=== PATIENT | female | born 1945 | race Caucasian/White ===

== ENCOUNTER 2023-12-05 07:22 | Emergency (ER) | payer MEDICARE, SELFPAY ==
--- NOTE | ~2023-12-05 | CT_ITS ---
EXAMINATION: CT abdomen pelvis w con DATE: 12/05/2023 09:04 INDICATION: Constipation TECHNIQUE: Computed tomography (CT) of the abdomen and pelvis was performed with 100 cc Omnipaque 350 intravenous contrast. The dose-length product was 1557.13 mGy-cm. Automated exposure control and ite rative reconstruction technique were employed. COMPARISON: None. FINDINGS: There is dependent atelectasis. Heart size normal. No significant pleural or pericardial ef fusion. Status post cholecystectomy with expected prominence of the bile ducts. Possible distal right ureteral stone, although evaluation is limited due to metallic artifact from right hip arthroplasty. Mild right hydronephrosis. There is bladder wall thickening. Small ventral hernia containing fat. No nobstructive bowel gas pattern. The liver, spleen, pancreas, adrenal glands are unremarkable. Kidneys are atrophic with small bilater al low density lesions, most likely benign cysts. There is atherosclerosis of the aorta without aneur ysm. Small hiatal hernia with gastric bypass surgery. Generalized osteopenia. Severe lower thoracic a nd lumbar spondylosis. There is scoliosis. IMPRESSION: 1. Mild right hydronephrosis. Cannot exclude small distal right ureteral stone, although evaluation i s limited due to streak artifact from right hip arthroplasty. 2: Diffuse bladder wall thickening which is slightly irregular, suspicious for cystitis. Reviewed, dictated and finalized at location B. IMPRESSION: 1. Mild right hydronephrosis. Cannot exclude small distal right ureteral stone, although evaluation is limited due to streak artifact from right hip arthropla sty. 2: Diffuse bladder wall thickening which is slightly irregular, suspicious for cystitis.
[2023-12-05 07:24] VITALS: BP 158/117; PULSE 112; RESP 20; TEMP 36.4; O2SAT 100
--- NOTE | 2023-12-05 07:34 | ED.GENADULT ---
HPI - General Adult General Chief complaint: Abdominal Pain Stated complaint: abd pain History of Present Illness HPI narrative: 78-year-old female presenting to the emergency department for evaluation for constipation. Patient states she started having some rectal pain last night. Patient states that she feels she has to have a bowel movement but is unable to. Related Data Allergies Allergy/AdvReac Type Severity Reaction Status Date / Time Penicillins Allergy Intermediate Verified 01/03/11 17:55 Review of Systems Review of Systems: All systems reviewed & are unremarkable except as noted in HPI and below Exam Narrative: APPEARANCE: Well appearing, no pain, no distress, well-nourished. HEAD: normocephalic, atraumatic. EYES: PERRLA/EOMI, conjunctivae clear. NOSE: Normal no drainage EARS:TMS clear with good light reflex. THROAT: Pharynx clear, no exudate. NECK: Supple. No adenopathy, no masses. RESPIRATORY: Airway patent, respirations nonlabored. Clear to auscultation bilaterally, no rales, rhonchi, wheezing. CARDIOVASCULAR: Regular rate and rhythm without murmurs rubs or gallops. ABDOMINAL: Soft, nontender, nondistended, normal bowel sounds MUSCULOSKELETAL: Moves all extremities. Strength/ROM intact, No edema, No calf tenderness. NEURO: Alert. Cranial nerves II through XII intact. Good gait. Good coordination SKIN: Warm, dry. Normal Color PSYCHIATRIC: Normal affect/mood. Rectal pressure: Large stool ball within the rectal vault Course Vital Signs Vital signs: Vital Signs Temperature 97.6 F 12/05/23 07:24 Pulse Rate 112 H 12/05/23 07:24 Respiratory Rate 20 12/05/23 07:24 Blood Pressure 158/117 H 12/05/23 07:24 Pulse Oximetry 100 12/05/23 07:24 Oxygen Delivery Room Air 12/05/23 07:24 Temperature 97.5 F L 12/05/23 13:28 Pulse Rate 98 12/05/23 13:28 Respiratory Rate 19 12/05/23 13:28 Blood Pressure 126/66 12/05/23 13:28 Pulse Oximetry 99 12/05/23 13:28 Oxygen Delivery Room Air 12/05/23 07:24 Procedures Rectal Disimpaction Rectal Disimpaction #1: Rectal Disimpaction Time: 07:35 Time out performed rectal disimpaction: Yes Indication: fecal impaction Procedural Sedation: No Sedation/Analgesia: none Technique: manual disimpaction with gloved finger Result: significant stool output Patient Tolerated Procedure: well and no complications Complications: none Rectal Disimpaction #2: Rectal Disimpaction Time: 08:20 Time out performed rectal disimpaction: No Indication: fecal impaction Procedural Sedation: No Sedation/Analgesia: none Technique: manual disimpaction with gloved finger Result: significant stool output Patient Tolerated Procedure: well and no complications Complications: none Medical Decision Making MDM Narrative Medical decision making narrative: 70-year-old female presents to the emergency department for evaluation for increased rectal pressure. Patient did have a large stool ball and did require digital disimpaction x2 along with subsides enema. Patient ultimately did have a large bowel movement and significant response to the treatment. Patient is afebrile but does have a leukocytosis of 15.7 hemoglobin of 11.7. Patient's sodium is 126 with normal kidney function. UA was concerning for infection. Patient did have some urinary retention secondary to the constipation but now that the constipation has been resolved patient was able to urinate. Patient was offered admission but patient prefers to be discharged home. Patient will be started on Rocephin in the emergency department discharged home with Keflex. Patient was also advised to increase her daily MiraLax to help prevent worsening constipation. Patient was also educated on reasons to return to the emergency department. Differential Diagnosis Differential Diagnosis: Constipation, urinary obstructio
[2023-12-05 07:54] VITALS: BP 127/72; PULSE 105; RESP 20; O2SAT 100
--- NOTE | 2023-12-05 07:59 | PC.NURSE ---
Pt taken to CT at this time
[2023-12-05 08:01] LABS: Basophils Absolute Auto 0.1 K/mm3 (0.0-0.1); Basophils Percent Auto 0.6 % (0.2-1.2); Eosinophils Absolute Auto 0.1 K/mm3 (0-0.3); Eosinophils Percent Auto 0.8 % (0-4.4); Hematocrit 35.5 % (37.0-47.0); Hemoglobin 11.7 g/dL (12.0-15.0); Immature Granulocyte Absolute 0.08 K/mm3 (0.00-0.031); Immature Granulocyte Percent A 0.5 % (0-0.5); Lymphocytes Absolute Auto 2.29 K/mm3 (0.9-3.2); Lymphocytes Percent Auto 14.6 % (18.3-44.2); Mean Corpuscular Hemoglobin 30.5 pg (26-34); Mean Corpuscular Volume 92.4 fl (80-100); Mean Platelet Volume 10.6 fl (7.4-10.4); Monocytes Percent Auto 6.1 % (2.6-8.5); Neutrophils Absolute Auto 12.2 K/mm3 (1.3-6.7); Neutrophils Percent Auto 77.4 % (45.5-73.1); Platelet Count Result 223 k/mm3 (150-375); Red Blood Count 3.84 M/mm3 (4.2-5.4); Red Cell Distribution Width 12.7 % (11.5-14.5); White Blood Count 15.7 K/mm3 (4.5-10.0)
[2023-12-05 08:08] LABS: Alanine Aminotransferase 13 U/L (6-35); Albumin Level 3.8 g/dL (3.5-5.1); Alkaline Phosphatase 84 U/L (38-126); Anion Gap 11 mmol/L (4-12); Aspartate Amino Transferase 21 U/L (14-36); Bilirubin,Total 0.9 mg/dL (0.2-1.3); Blood Urea Nitrogen 18 mg/dL (7-17); Calcium 8.6 mg/dL (8.4-10.2); Carbon Dioxide 24 mmol/L (22-30); Chloride 91 mmol/L (98-107); Estimated CRCL calculation 56 ml/min; Estimated Glomerular Filt Rate > 60; Glucose 213 mg/dL (65-110); Potassium 3.5 mmol/L (3.4-5.0); Sodium 126 mmol/L (137-145)
[2023-12-05 08:20] LABS: Prothrombin Time 13.7 Seconds (11.1-14.7)
[2023-12-05 08:21] LABS: Partial Thromboplastin Time 28.6 Seconds (22.3-36.8)
[2023-12-05 10:08] VITALS: BP 130/83; PULSE 96; RESP 18; O2SAT 96
[2023-12-05 10:24] LABS: Bacteria Urine 4+ /hpf; Non Pathogenic Casts 0-2; RBC Urine >100 /hpf (0-2); Squamous Epithelial Cell Urine Occasional /hpf (Few); WBC Urine >100 /hpf (0-3)
[2023-12-05 10:26] LABS: Add Urine Microscopic? YES; Appearance Urine Turbid (Clear); Bilirubin Urine Negative (Negative); Blood Urine 3+ (Negative); Glucose Urine UA Trace mg/dL (Negative); Ketones Urine Negative (Negative); Leukocyte Esterase Ur 3+ LEU/UL (Negative); Nitrate Urine Negative (Negative); Protein Urine 2+ mg/dL (Negative); Specific Grav Ur 1.017 (1.001-1.035); Urobilinogen Urine 0.2 mg/dL (<2.0); pH Urine 5.5 (5.0-9.0)
[2023-12-05 10:29] LABS: Color Urine Dark Yellow (Yellow)
[2023-12-05 11:50] VITALS: BP 147/69; PULSE 100; RESP 20; O2SAT 98
--- NOTE | 2023-12-05 11:53 | PC.NURSE ---
Spoke with REENA Boyce at [facility] for report upon d/c.
[2023-12-05 13:28] VITALS: BP 126/66; PULSE 98; RESP 19; TEMP 36.4; O2SAT 99
== END 2023-12-05 13:28 ==
PROVIDERS: Emergency Provider Emergency Medicine
DX: K59.00 Constipation, unspecified (principal); N39.0 Urinary tract infection, site not specified
CPT/HCPCS: 36415; 74177; 80053; 81001; 85025; 85610; 85730; 87086; 96365; 99284; J0696; Q9967

== ENCOUNTER 2024-01-03 05:16 | Emergency (ER) | payer MEDICARE, SELFPAY ==
--- NOTE | ~2024-01-03 | CT_ITS ---
CT of the Abdomen and Pelvis: Indication: Abdominal pain Technique: 2.5 mm axial scans were obtained through the abdomen and pelvis following intravenous adm inistration of 100 cc of Omnipaque 350. Dose reduction technique was used on this scan by utilizing a utomated exposure control and iterative reconstruction technique. The dose-length product (DLP) was 1 476.75 mGy-cm. COMPARISON: 12/05/2023 Findings: Scans through the lung bases are unremarkable. Mild intrahepatic and extrahepatic biliary dilatation may be related to prior cholecystectomy. The li bipin, spleen, pancreas, adrenals and kidneys are otherwise within normal limits. No evidence of aorti c aneurysm. No lymphadenopathy. Suggestion of wall thickening very distal rectum, stable from prior exam. No murali bowel obstruction clearly evident.. Evidence of prior gastric sleeve surgery. There is no evidence to suggest acute minna endicitis. Images through the pelvis are mildly degraded by streak artifact from right hip arthroplasty. Suspect ed urinary bladder wall thickening. No pelvic mass. No ascites. Stable extensive degenerative spondyl osis of the spine. Impression: Possible wall thickening very distal rectum/anal canal. Neoplastic lesion is a potential consideratio n. Correlate with physical exam. Suspected cystitis. Correlate with urinalysis. Stable intrahepatic and extrahepatic biliary dilatation, possibly related to prior cholecystectomy. Reviewed, dictated and finalized at location . 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 Neoplastic lesion is a potential consideration. Correlate with physical exam. Suspected cystitis. Correlate with urinalysis. Stable intrahepatic and extrahepatic biliary dilatation, possibly related to pr ior cholecystectomy.
[2024-01-03 05:16] VITALS: BP 161/77; PULSE 117; RESP 16; TEMP 36.7; O2SAT 96
[2024-01-03 05:24] VITALS: PULSE 113; RESP 16; TEMP 36.7; O2SAT 96
--- NOTE | 2024-01-03 05:24 | ECG_ITS ---
Test Date: 2024-01-03 05:28:14 Measurements Intervals [place] Rate: 112 P: 0 LA: 0 QRS: -73 QRSD: 141 T: -4 QT: 354 QTc: 484 Interpretive Statements SINUS TACHYCARDIA LEFT AXIS DEVIATION RIGHT BUNDLE BRANCH BLOCK LATERAL INFARCT, AGE INDETERMINATE CONSIDER NFERIOR INFARCT, AGE INDETERMINATE BASELINE ARTIFACT- I, III, AVR, AVL, AVF, V1, V3-V4 ABNORMAL ECG No previous ECG available for comparison Electronically Signed On 01-03-2024 07:56:13 DIRECTOR POST by Chema Bowles D.O.
--- NOTE | 2024-01-03 06:01 | ED.GENADULT ---
HPI - General Adult General Chief complaint: Abdominal Pain <Kye Cartwright MD - Last Filed: 01/03/24 06:04> Stated complaint: abd pain <Kye Cartwright MD - Last Filed: 01/03/24 06:04> Time Seen by Provider: 01/03/24 05:33 <Kye Cartwright MD - Last Filed: 01/03/24 06:04> Source: patient, RN notes reviewed and old records reviewed <Ciara Hansen MD - Last Filed: 01/03/24 11:51> History of Present Illness HPI narrative: Patient is a 78-year-old female who presents emergency department with chief complaint of abdominal pain back pain and rectal pain. The patient reports for the last several days she has not had a bowel movement reports that she is having severe pain in her rectum and feels as though she cannot urinate or move her bowels. The patient reports she has had to be manually disimpacted before in the past <Kye Cartwright MD - Last Filed: 01/03/24 06:04> Related Data Allergies/adverse reactions: Allergies Allergy/AdvReac Type Severity Reaction Status Date / Time Penicillins Allergy Intermediate Unknown Verified 01/03/24 05:26 vancomycin Allergy Unknown Verified 01/03/24 05:26 <Kye Cartwright MD - Last Filed: 01/03/24 06:04> Review of Systems Review of Systems: A 10 system review of systems was completed on the patient and is negative except for what is stated in the HPI. Nursing and ancillary documentation was reviewed. <Kye Cartwright MD - Last Filed: 01/03/24 06:04> [facility] Past Medical History Medical History: Medical History (Updated 01/03/24 @ 11:48 by Ciara Hansen MD) Diabetes Hypertension <Kye Cartwright MD - Last Filed: 01/03/24 06:04> Surgical History Surgical History: Surgical History (Updated 01/03/24 @ 11:50 by Ciara Hansen MD) History of total right hip arthroplasty Hx of cholecystectomy <Kye Cartwright MD - Last Filed: 01/03/24 06:04> Social History Social History: Social History (Updated 01/03/24 @ 11:50 by Ciara Hansen MD) Substance use: never <Kye Cartwright MD - Last Filed: 01/03/24 06:04> Exam Narrative: GENERAL: Well-appearing, well-nourished, and in no acute distress. HEAD: Normocephalic, atraumatic. EYES: PERRLA and EOMI. ENT: Nares clear, no rhinorrhea or epistaxis. Mucous membranes moist. NECK: Supple. CHEST: Clear to auscultation. No respiratory distress. HEART: Regular rate and rhythm. No murmur heard. Normal peripheral pulses. ABDOMEN: Soft, nontender, nondistended, normal active bowel sounds. EXTREMITIES: Normal range of motion. No edema. : Large amount of fecal material in the rectum guaiac-negative SKIN: Warm, dry, no rash. NEURO: No focal deficits. Alert and oriented x3. PSYCH: Normal mood and affect. <Kye Cartwright MD - Last Filed: 01/03/24 06:04> Course Reevaluation(s) Reevaluation #1: Patient states she feels better. She was disimpacted by night EDP prior to my shift. Heart rate is 85 with 98% on room air. CT shows imflammation to rectum from constipation. She will be discharged home with antibiotics for UTI. I have discussed plan with patient. <Ciara Hansen MD - Last Filed: 01/03/24 11:51> Date: 01/03/24 <Ciara Hansen MD - Last Filed: 01/03/24 11:51> Time: 08:44 <Ciara Hansen MD - Last Filed: 01/03/24 11:51> Vital Signs Vital signs: Vital Signs Temperature 98.1 F 01/03/24 05:16 Pulse Rate 117 H 01/03/24 05:16 Respiratory Rate 16 01/03/24 05:16 Blood Pressure 161/77 H 01/03/24 05:16 Pulse Oximetry 96 01/03/24 05:16 Oxygen Delivery Room Air 01/03/24 05:16 Temperature 98.1 F 01/03/24 05:24 Pulse Rate 113 H 01/03/24 05:24 Respiratory Rate 16 01/03/24 05:24 Blood Pressure 161/77 H 01/03/24 05:16 Pulse Oximetry 96 01/03/24 05:24 Oxygen Delivery Room Air 01/03/24 05:16 <Kye Cartwright MD - Last Filed: 01/03/24 06:04> Vital Signs Temperature 98.1 F 01/03/24 05:16 Pulse Rate 117 H 01/03/24 05:16 Respiratory Rate 16 01/03/24 05:16 Blood Pressure 161/77 H 01/03/24 05:16 Pulse Oximetry 96 01/03/24 05:16 Oxygen Delivery Room Air 01/03/24 05:16 Temperature 98.1 F 01/03/24 05:24 Pulse Rate 113 H 01/03/24 05:24 Respiratory Rate 16 01/03/24 05:24 Blood Pressure 161/77 H 01/03/24 05:16 Pulse Oximetry 96 01/03/24 05:24 Oxygen Delivery Room Air 01/03/24 05:16 <Ciara Hansen MD - Last Filed: 01/03/24 11:51> Procedures Rectal Disimpaction Rectal Disimpaction #1: Rectal Disimpaction Date: 01/03/24 <Kye Cartwright MD - Last Filed: 01/03/24 06:04> Rectal Disimpaction Time: 06:04 <Kye Cartwright MD - Last Filed: 01/03/24 06:04> Time out performed rectal disimpaction: Yes <Kye Cartwright MD - Last Filed: 01/03/24 06:04> Indication: fecal impaction <Kye Cartwright MD - Last Filed: 01/03/24 06:04> Procedural Sedation: No <Kye Cartwright MD - Last Filed: 01/03/24 06:04> Sedation/Analgesia: none <Kye Cartwright MD - Last Filed: 01/03/24 06:04> Technique: manual disimpaction with gloved finger <Kye Cartwright MD - Last Filed: 01/03/24 06:04> Result: significant stool output <Kye Cartwright MD - Last Filed: 01/03/24 06:04> Patient Tolerated Procedure: well <Kye Cartwright MD - Last Filed: 01/03/24 06:04> Complications: none <Kye Cartwright MD - Last Filed: 01/03/24 06:04> Medical Decision Making Vital Signs Vital Signs: Vital Signs Temperature 98.1 F 01/03/24 05:16 Pulse Rate 117 H 01/03/24 05:16 Respiratory Rate 16 01/03/24 05:16 Blood Pressure 161/77 H 01/03/24 05:16 Pulse Oximetry 96 01/03/24 05:16 Oxygen Delivery Room Air 01/03/24 05:16 Temperature 98.1 F 01/03/24 05:24 Pulse Rate 113 H 01/03/24 05:24 Respiratory Rate 16 01/03/24 05:24 Blood Pressure 161/77 H 01/03/24 05:16 Pulse Oximetry 96 01/03/24 05:24 Oxygen Delivery Room Air 01/03/24 05:16 <Kye Cartwright MD - Last Filed: 01/03/24 06:04> Vital Signs Temperature 98.1 F 01/03/24 05:16 Pulse Rate 117 H 01/03/24 05:16 Respiratory Rate 16 01/03/24 05:16 Blood Pressure 161/77 H 01/03/24 05:16 Pulse Oximetry 96 01/03/24 05:16 Oxygen Delivery Room Air 01/03/24 05:16 Temperature 98.1 F 01/03/24 05:24 Pulse Rate 113 H 01/03/24 05:24 Respiratory Rate 16 01/03/24 05:24 Blood Pressure 161/77 H 01/03/24 05:16 Pulse Oximetry 96 01/03/24 05:24 Oxygen Delivery Room Air 01/03/24 05:16 <Ciara Hansen MD - Last Filed: 01/03/24 11:51> Lab Data Result diagrams: 01/03/24 06:25 01/03/24 06:25 <Kye Cartwright MD - Last Filed: 01/03/24 06:04> Labs: Lab Results 01/03/24 Range/Units 06:25 WBC 12.3 H (4.5-10.0) K/mm3 RBC 3.93 L (4.2-5.4) M/mm3 Hgb 12.2 (12.0-15.0) g/dL Hct 36.4 L (37.0-47.0) % MCV 92.6 (80-100) fl MCH 31.0 (26-34) pg MCHC 33.5 (32-36) g/dl RDW 12.1 (11.5-14.5) % Plt Count 181 (150-375) k/mm3 MPV 10.7 H (7.4-10.4) fl Immature Gran % (Auto) 0.4 (0-0.5) % Neut % (Auto) 87.0 H (45.5-73.1) % Lymph % (Auto) 5.8 L (18.3-44.2) % [place] % (Auto) 5.8 (2.6-8.5) % Eos % (Auto) 0.4 (0-4.4) % Baso % (Auto) 0.6 (0.2-1.2) % Lymph # (Auto) 0.71 L (0.9-3.2) K/mm3 [place] # (Auto) 0.7 H (0.1-0.6) K/mm3 Eos # (Auto) 0.1 (0-0.3) K/mm3 Baso # (Auto) 0.1 (0.0-0.1) K/mm3 Abs Immat Gran (auto) 0.05 H (0.00-0.031) K/mm3 Absolute Neuts (auto) 10.7 H (1.3-6.7) K/mm3 Absolute Nucleated RBC 0.000 (0.0-0.012) K/mm3 Nucleated RBC % 0.0 (0.0-0.2) % Sodium 127 L (137-145) mmol/L Potassium 4.3 (3.4-5.0) mmol/L Chloride 92 L (98-107) mmol/L Carbon Dioxide 27 (22-30) mmol/L Anion Gap 8 (4-12) mmol/L BUN 18 H (7-17) mg/dL Creatinine 0.80 (0.7-1.0) mg/dL Estim Creat Clear Calc 60 ml/min Estimated GFR > 60 (59 - ) Glucose 212 H (65-110) mg/dL Calcium 8.8 (8.4-10.2) mg/dL Total Bilirubin 0.7 (0.2-1.3) mg/dL AST 24 (14-36) U/L ALT 17 (6-35) U/L Alkaline Phosphatase 78 (38-126) U/L Total Protein 7.0 (6.3-8.2) g/dL Albumin 3.7 (3.5-5.1) g/dL Lipase 118 (23-300) U/L Urine Color Brown H (Yellow) Urine Appearance Cloudy H (Clear) Urine pH 6.0 (5.0-9.0) Ur Specific [place] 1.010 (1.001-1.035) Urine Protein 1+ H (Negative) mg/dL Urine Glucose (UA) Trace H (Negative) mg/dL Urine Ketones Negative (Negative) mg/dL Ur Blood (Man) 3+ H (Negative) Urine Nitrate Positive H (Negative) Urine Bilirubin Negative (Negative) Urine Urobilinogen 0.2 (<2.0) mg/dL Leukocyte Esterase Rfl 3+ H (Negative) JOANN/UL Urine RBC >100 H (0-2) /hpf Urine WBC >100 H (0-3) /hpf Ur Squamous Epith Cells None seen (Few) /hpf Urine Bacteria 4+ H /hpf Urine Casts 0-2 <Kye Cartwright MD - Last Filed: 01/03/24 06:04> Lab Results 01/03/24 Range/Units 06:25 WBC 12.3 H (4.5-10.0) K/mm3 RBC 3.93 L (4.2-5.4) M/mm3 Hgb 12.2 (12.0-15.0) g/dL Hct 36.4 L (37.0-47.0) % MCV 92.6 (80-100) fl MCH 31.0 (26-34) pg MCHC 33.5 (32-36) g/dl RDW 12.1 (11.5-14.5) % Plt Count 181 (150-375) k/mm3 MPV 10.7 H (7.4-10.4) fl Immature Gran % (Auto) 0.4 (0-0.5) % Neut % (Auto) 87.0 H (45.5-73.1) % Lymph % (Auto) 5.8 L (18.3-44.2) % [place] % (Auto) 5.8 (2.6-8.5) % Eos % (Auto) 0.4 (0-4.4) % Baso % (Auto) 0.6 (0.2-1.2) % Lymph # (Auto) 0.71 L (0.9-3.2) K/mm3 [place] # (Auto) 0.7 H (0.1-0.6) K/mm3 Eos # (Auto) 0.1 (0-0.3) K/mm3 Baso # (Auto) 0.1 (0.0-0.1) K/mm3 Abs Immat Gran (auto) 0.05 H (0.00-0.031) K/mm3 Absolute Neuts (auto) 10.7 H (1.3-6.7) K/mm3 Absolute Nucleated RBC 0.000 (0.0-0.012) K/mm3 Nucleated RBC % 0.0 (0.0-0.2) % Sodium 127 L (137-145) mmol/L Potassium 4.3 (3.4-5.0) mmol/L Chloride 92 L (98-107) mmol/L Carbon Dioxide 27 (22-30) mmol/L Anion Gap 8 (4-12) mmol/L BUN 18 H (7-17) mg/dL Creatinine 0.80 (0.7-1.0) mg/dL Estim Creat Clear Calc 60 ml/min Estimated GFR > 60 (59 - ) Glucose 212 H (65-110) mg/dL Calcium 8.8 (8.4-10.2) mg/dL Total Bilirubin 0.7 (0.2-1.3) mg/dL AST 24 (14-36) U/L ALT 17 (6-35) U/L Alkaline Phosphatase 78 (38-126) U/L Total Protein 7.0 (6.3-8.2) g/dL Albumin 3.7 (3.5-5.1) g/dL Lipase 118 (23-300) U/L Urine Color Brown H (Yellow) Urine Appearance Cloudy H (Clear) Urine pH 6.0 (5.0-9.0) Ur Specific [place] 1.010 (1.001-1.035) Urine Protein 1+ H (Negative) mg/dL Urine Glucose (UA) Trace H (Negative) mg/dL Urine Ketones Negative (Negative) mg/dL Ur Blood (Man) 3+ H (Negative) Urine Nitrate Positive H (Negative) Urine Bilirubin Negative (Negative) Urine Urobilinogen 0.2 (<2.0) mg/dL Leukocyte Esterase Rfl 3+ H (Negative) JOANN/UL Urine RBC >100 H (0-2) /hpf Urine WBC >100 H (0-3) /hpf Ur Squamous Epith Cells None seen (Few) /hpf Urine Bacteria 4+ H /hpf Urine Casts 0-2 <Ciara Hansen MD - Last Filed: 01/03/24 11:51> Discharge Plan Discharge Clinical Impression: Fecal impaction in rectum, Acute UTI, Chronic hyponatremia <Kye Cartwright MD - Last Filed: 01/03/24 06:04> Patient Disposition: Home, Self-Care <Kye Cartwright MD - Last Filed: 01/03/24 06:04> Condition: Stable <Kye Cartwright MD - Last Filed: 01/03/24 06:04> Instructions: Antibiotic Form, Constipation (ED), Urinary Tract Infection in Women (ED) <Kye Cartwright MD - Last Filed: 01/03/24 06:04> Additional Instructions: Take miralax daily. Follow up with your primary care provider. TAke antibiotics as prescribed <Kye Cartwright MD - Last Filed: 01/03/24 06:04> Prescriptions: New ciprofloxacin HCl [Cipro] 250 mg tablet 250 mg PO Q12H Qty: 20 0RF No Action cephalexin 500 mg capsule 500 mg PO Q6H Qty: 7 0RF <Kye Cartwright MD - Last Filed: 01/03/24 06:04> Follow-up/Referrals: UNKNOWN,DOCTOR [Primary Care Provider] - <Kye Cartwright MD - Last Filed: 01/03/24 06:04>
[2024-01-03 06:42] LABS: Basophils Absolute Auto 0.1 K/mm3 (0.0-0.1); Basophils Percent Auto 0.6 % (0.2-1.2); Eosinophils Absolute Auto 0.1 K/mm3 (0-0.3); Eosinophils Percent Auto 0.4 % (0-4.4); Hematocrit 36.4 % (37.0-47.0); Hemoglobin 12.2 g/dL (12.0-15.0); Immature Granulocyte Absolute 0.05 K/mm3 (0.00-0.031); Immature Granulocyte Percent A 0.4 % (0-0.5); Lymphocytes Absolute Auto 0.71 K/mm3 (0.9-3.2); Lymphocytes Percent Auto 5.8 % (18.3-44.2); Mean Corpuscular HGB Conc 33.5 g/dl (32-36); Mean Corpuscular Volume 92.6 fl (80-100); Mean Platelet Volume 10.7 fl (7.4-10.4); Monocytes Absolute Auto 0.7 K/mm3 (0.1-0.6); Monocytes Percent Auto 5.8 % (2.6-8.5); Neutrophils Absolute Auto 10.7 K/mm3 (1.3-6.7); Platelet Count Result 181 k/mm3 (150-375); Red Blood Count 3.93 M/mm3 (4.2-5.4); Red Cell Distribution Width 12.1 % (11.5-14.5); White Blood Count 12.3 K/mm3 (4.5-10.0)
[2024-01-03 06:47] LABS: Bacteria Urine 4+ /hpf; Non Pathogenic Casts 0-2; RBC Urine >100 /hpf (0-2); Squamous Epithelial Cell Urine None Seen /hpf (Few); WBC Urine >100 /hpf (0-3)
[2024-01-03 06:48] LABS: Add Urine Microscopic? YES; Appearance Urine Cloudy (Clear); Bilirubin Urine Negative (Negative); Blood Urine 3+ (Negative); Glucose Urine UA Trace mg/dL (Negative); Ketones Urine Negative (Negative); Leukocyte Esterase Ur 3+ LEU/UL (Negative); Nitrate Urine Positive (Negative); Protein Urine 1+ mg/dL (Negative); Urobilinogen Urine 0.2 mg/dL (<2.0)
[2024-01-03 06:49] LABS: Color Urine Brown (Yellow)
[2024-01-03 06:52] LABS: Alanine Aminotransferase 17 U/L (6-35); Albumin Level 3.7 g/dL (3.5-5.1); Alkaline Phosphatase 78 U/L (38-126); Anion Gap 8 mmol/L (4-12); Aspartate Amino Transferase 24 U/L (14-36); Bilirubin,Total 0.7 mg/dL (0.2-1.3); Blood Urea Nitrogen 18 mg/dL (7-17); Calcium 8.8 mg/dL (8.4-10.2); Carbon Dioxide 27 mmol/L (22-30); Chloride 92 mmol/L (98-107); Estimated CRCL calculation 60 ml/min; Estimated Glomerular Filt Rate > 60; Glucose 212 mg/dL (65-110); Lipase 118 U/L (23-300); Potassium 4.3 mmol/L (3.4-5.0); Sodium 127 mmol/L (137-145)
--- NOTE | 2024-01-03 09:10 | PC.NURSE ---
upon attempting to d/c pt, pt requests ems transport back to [facility]. pt informed there is no medical reason for transport, pt verbalizes understanding. pt offered cab voucher for transport but pt refuses. 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 care coordination informed, spoke with pt. pt adament for transport via ems.
--- NOTE | 2024-01-03 10:53 | PC.NURSE ---
pt called son, left voicemail
[2024-01-03 11:08] VITALS: BP 167/70; PULSE 89; RESP 16; TEMP 36.9; O2SAT 99
--- NOTE | 2024-01-03 12:18 | PC.NURSE ---
pt spoke with daughter in [facility]. daughter states she will come and get pt. pt offered mesh garment to help hold depends in place, as it will not fasten around waist, but pt declines. states my daughter will run by my place and get me my diaper and pants . pt informed that if needed, we will provide mesh garment as well as pants for the travel home. pt verbalized understanding
[2024-01-03] MEDS: ACETAMINOPHEN 325 MG TABLET 650 MG PO (12:49)
[2024-01-03 13:15] VITALS: BP 159/80; PULSE 83; RESP 16; TEMP 36.6; O2SAT 98
== END 2024-01-03 13:21 ==
PROVIDERS: Emergency Provider Emergency Medicine
DX: K56.41 Fecal impaction (principal); N39.0 Urinary tract infection, site not specified; E87.1 Hypo-osmolality and hyponatremia; E11.9 Type 2 diabetes mellitus without complications; I10 Essential (primary) hypertension; Z96.641 Presence of right artificial hip joint
CPT/HCPCS: 36415; 74177; 80053; 81001; 83690; 85025; 87086; 87186; 93005; 99284; A9270; Q9967

== ENCOUNTER 2024-01-04 09:02 | Emergency (ER) | payer MEDICARE, SELFPAY ==
--- NOTE | ~2024-01-04 | XR_ITS ---
XR abdomen/kub 1V Ordering provider: Veto Coe MD History: . constipation RECENT ER [facility] . Comparison: None. FINDINGS: BOWEL: Nonobstructive bowel gas pattern. ORGANOMEGALY: None. SIGNIFICANT PATHOLOGIC CALCIFICATIONS: None. OTHER: No free air is seen under the diaphragm. Degenerative changes of the spine. Dextroscoliosis. B ilateral sacroiliitis. Right hip arthroplasty. Severe left hip osteoarthritic changes. IMPRESSION: NO ACUTE ABDOMINAL FINDINGS. Reviewed, dictated and finalized at location A. [employer]
[2024-01-04 09:04] VITALS: BP 116/75; PULSE 94; RESP 15; TEMP 36.6; O2SAT 97
[2024-01-04 10:32] VITALS: BP 137/60; PULSE 80; RESP 17; O2SAT 98
--- NOTE | 2024-01-04 10:58 | ED_ITS ---
HPI - General Adult General Chief complaint: Abdominal Pain Stated complaint: constipation Time Seen by Provider: 01/04/24 10:23 History of Present Illness HPI narrative: 78-year-old female returns to emergency department for concerns of constipation and rectal impaction. Patient was just evaluated emergency department last night and stated that she is still unable to have a bowel movement. On the digital rectal exam patient had a large palpable stool ball. Patient was willing to have a another digital fecal disimpaction. Related Data Allergies Allergy/AdvReac Type Severity Reaction Status Date / Time Penicillins Allergy Intermediate Unknown Verified 01/04/24 09:10 vancomycin Allergy Unknown Verified 01/04/24 09:10 Review of Systems Review of Systems: All systems reviewed & are unremarkable except as noted in HPI and below PMFSH Past Medical History Medical History (Updated 01/04/24 @ 12:32 by Veto Coe MD) Diabetes Hypertension Surgical History Surgical History (Updated 01/03/24 @ 11:50 by Ciara Hansen MD) History of total right hip arthroplasty Hx of cholecystectomy Social History Social History (Updated 01/03/24 @ 11:50 by Ciara Hansen MD) Substance use: never Exam Narrative: APPEARANCE: Well appearing, no pain, no distress, well-nourished. HEAD: normocephalic, atraumatic. EYES: PERRLA/EOMI, conjunctivae clear. NOSE: Normal no drainage EARS:TMS clear with good light reflex. THROAT: Pharynx clear, no exudate. NECK: Supple. No adenopathy, no masses. RESPIRATORY: Airway patent, respirations nonlabored. Clear to auscultation bilaterally, no rales, rhonchi, wheezing. CARDIOVASCULAR: Regular rate and rhythm without murmurs rubs or gallops. ABDOMINAL: Soft, nontender, nondistended, normal bowel sounds MUSCULOSKELETAL: Moves all extremities. Strength/ROM intact, No edema, No calf tenderness. NEURO: Alert. Cranial nerves II through XII intact. Good gait. Good coordination SKIN: Warm, dry. Normal Color Rectal exam: Large rectal stool ball palpated, patient did tolerate rectal disimpaction and passed a large amount of stool from the disimpaction. Course Vital Signs Vital signs: Vital Signs Temperature 97.8 F 01/04/24 09:04 Pulse Rate 94 01/04/24 09:04 Respiratory Rate 15 01/04/24 09:04 Blood Pressure 116/75 01/04/24 09:04 Pulse Oximetry 97 01/04/24 09:04 Oxygen Delivery Room Air 01/04/24 09:04 Temperature 97.8 F 01/04/24 09:04 Pulse Rate 78 01/04/24 13:11 Respiratory Rate 15 01/04/24 13:11 Blood Pressure 134/68 01/04/24 13:11 Pulse Oximetry 99 01/04/24 13:11 Oxygen Delivery Room Air 01/04/24 09:04 Procedures Rectal Disimpaction Rectal Disimpaction #1: Rectal Disimpaction Time: 10:59 Time out performed rectal disimpaction: Yes Indication: fecal impaction Procedural Sedation: No Sedation/Analgesia: none Technique: manual disimpaction with gloved finger Result: significant stool output Patient Tolerated Procedure: well and no complications Additional Comments: Patient had a large amount of stool released from her rectum after digital disimpaction Medical Decision Making MDM Narrative Medical decision making narrative: 70-year-old female presented emergency department for evaluation for constipation. Patient was digitally disimpacted again emergency department had a large amount of stool. Patient was then able to have 2 large spontaneous bowel movements and does feel significantly improved. Patient denies any abdominal pain at this time. Patient states he does still have some rectal discomfort Differential Diagnosis Differential Diagnosis: Obstruction, constipation, ileus, dehydration, hemorrhoids, anal fissure Vital Signs Vital Signs: Vital Signs Temperature 97.8 F 01/04/24 09:04 Pulse Rate 94 01/04/24 09:04 Respiratory Rate 15 01/04/24 09:04 Blood Pressure 116/75 01/04/24 09:04 Pulse Oximetry 97 01/04/24 09:04 Oxygen Delivery Room Air 01/04/24 09:04 Temperature 97.8 F 01/04/24 09:04 Pulse Rate 78 01/04/24 13:11 Respiratory Rate 15 01/04/24 13:11 Blood Pressure 134/68 01/04/24 13:11 Pulse Oximetry 99 01/04/24 13:11 Oxygen Delivery Room Air 01/04/24 09:04 Lab Data Lab results reviewed: Yes I reviewed the patient's lab results. 01/04/24 11:44 01/04/24 11:44 Labs: Lab Results 01/04/24 Range/Units 11:44 WBC 12.4 H (4.5-10.0) K/mm3 RBC 3.85 L (4.2-5.4) M/mm3 Hgb 12.1 (12.0-15.0) g/dL Hct 35.0 L (37.0-47.0) % MCV 90.9 (80-100) fl MCH 31.4 (26-34) pg MCHC 34.6 (32-36) g/dl RDW 12.5 (11.5-14.5) % Plt Count 179 (150-375) k/mm3 MPV 10.5 H (7.4-10.4) fl Immature Gran % (Auto) 0.2 (0-0.5) % Neut % (Auto) 82.0 H (45.5-73.1) % Lymph % (Auto) 11.3 L (18.3-44.2) % [place] % (Auto) 5.8 (2.6-8.5) % Eos % (Auto) 0.2 (0-4.4) % Baso % (Auto) 0.5 (0.2-1.2) % Lymph # (Auto) 1.40 (0.9-3.2) K/mm3 [place] # (Auto) 0.7 H (0.1-0.6) K/mm3 Eos # (Auto) 0.0 (0-0.3) K/mm3 Baso # (Auto) 0.1 (0.0-0.1) K/mm3 Abs Immat Gran (auto) 0.03 (0.00-0.031) K/mm3 Absolute Neuts (auto) 10.1 H (1.3-6.7) K/mm3 Absolute Nucleated RBC 0.000 (0.0-0.012) K/mm3 Nucleated RBC % 0.0 (0.0-0.2) % PT 14.1 (11.1-14.7) Seconds INR 1.0 APTT 28.5 (22.3-36.8) Seconds Sodium 125 L (137-145) mmol/L Potassium 4.3 (3.4-5.0) mmol/L Chloride 91 L (98-107) mmol/L Carbon Dioxide 28 (22-30) mmol/L Anion Gap 6 (4-12) mmol/L BUN 15 (7-17) mg/dL Creatinine 0.80 (0.7-1.0) mg/dL Estim Creat Clear Calc 60 ml/min Estimated GFR > 60 (59 - ) Glucose 137 H (65-110) mg/dL Calcium 8.7 (8.4-10.2) mg/dL Total Bilirubin 1.1 (0.2-1.3) mg/dL AST 24 (14-36) U/L ALT 17 (6-35) U/L Alkaline Phosphatase 83 (38-126) U/L Total Protein 7.0 (6.3-8.2) g/dL Albumin 3.7 (3.5-5.1) g/dL Discharge Plan Discharge Clinical Impression: Fecal impaction of colon, Constipation Patient Disposition: [facility] Condition: Stable Instructions: Antibiotic Form, Constipation (ED) Additional Instructions: Significantly increase the amount of stool softeners that you are taking. I do recommend adding multiple doses of MiraLax a day. Have close follow-up with your physicians. If you have any worsening symptoms please call or return to the emergency department. Prescriptions: No Action cephalexin 500 mg capsule 500 mg PO Q6H Qty: 7 0RF ciprofloxacin HCl [Cipro] 250 mg tablet 250 mg PO Q12H Qty: 20 0RF Follow-up/Referrals: UNKNOWN,DOCTOR [Primary Care Provider] -
[2024-01-04 11:50] LABS: Basophils Absolute Auto 0.1 K/mm3 (0.0-0.1); Basophils Percent Auto 0.5 % (0.2-1.2); Eosinophils Percent Auto 0.2 % (0-4.4); Hemoglobin 12.1 g/dL (12.0-15.0); Immature Granulocyte Absolute 0.03 K/mm3 (0.00-0.031); Immature Granulocyte Percent A 0.2 % (0-0.5); Lymphocytes Percent Auto 11.3 % (18.3-44.2); Mean Corpuscular HGB Conc 34.6 g/dl (32-36); Mean Corpuscular Hemoglobin 31.4 pg (26-34); Mean Corpuscular Volume 90.9 fl (80-100); Mean Platelet Volume 10.5 fl (7.4-10.4); Monocytes Absolute Auto 0.7 K/mm3 (0.1-0.6); Monocytes Percent Auto 5.8 % (2.6-8.5); Neutrophils Absolute Auto 10.1 K/mm3 (1.3-6.7); Platelet Count Result 179 k/mm3 (150-375); Red Blood Count 3.85 M/mm3 (4.2-5.4); Red Cell Distribution Width 12.5 % (11.5-14.5); White Blood Count 12.4 K/mm3 (4.5-10.0)
[2024-01-04 12:01] LABS: Prothrombin Time 14.1 Seconds (11.1-14.7)
[2024-01-04 12:02] LABS: Partial Thromboplastin Time 28.5 Seconds (22.3-36.8)
[2024-01-04 12:08] LABS: Alanine Aminotransferase 17 U/L (6-35); Albumin Level 3.7 g/dL (3.5-5.1); Alkaline Phosphatase 83 U/L (38-126); Anion Gap 6 mmol/L (4-12); Aspartate Amino Transferase 24 U/L (14-36); Bilirubin,Total 1.1 mg/dL (0.2-1.3); Blood Urea Nitrogen 15 mg/dL (7-17); Calcium 8.7 mg/dL (8.4-10.2); Carbon Dioxide 28 mmol/L (22-30); Chloride 91 mmol/L (98-107); Estimated CRCL calculation 60 ml/min; Estimated Glomerular Filt Rate > 60; Glucose 137 mg/dL (65-110); Potassium 4.3 mmol/L (3.4-5.0); Sodium 125 mmol/L (137-145)
[2024-01-04 13:11] VITALS: BP 134/68; PULSE 78; RESP 15; O2SAT 99
== END 2024-01-04 13:12 ==
PROVIDERS: Emergency Provider Emergency Medicine
DX: K59.00 Constipation, unspecified (principal); I10 Essential (primary) hypertension; E11.9 Type 2 diabetes mellitus without complications; Z90.49 Acquired absence of other specified parts of digestive tract; Z96.641 Presence of right artificial hip joint
CPT/HCPCS: 36415; 74018; 80053; 85025; 85610; 85730; 99283

== ENCOUNTER 2024-01-19 02:09 | Emergency (ER) | payer MEDICARE, SELFPAY ==
--- NOTE | ~2024-01-19 | XR_ITS ---
Supine and upright views of the abdomen Clinical history: Constipation Comparison 01/04/2024 Findings: Bowel gas pattern is nonspecific. No evidence for obstruction or free air. No abnormal mass lesion or calcification is seen. Right hip arthroplasty again noted. There is extensive degenerative change of the spine. Impression: Nonspecific bowel gas pattern. Reviewed, dictated and finalized at [facility]. TURNER Impression: Nonspecific bowel gas pattern.
[2024-01-19 02:11] VITALS: BP 153/75; PULSE 90; RESP 14; TEMP 36.7; O2SAT 97
--- NOTE | 2024-01-19 03:17 | ED.GENADULT ---
HPI - General Adult General Chief complaint: Unspecified Stated complaint: Rectal Pain Time Seen by Provider: 01/19/24 03:00 History of Present Illness HPI narrative: patient 78-year-old female who presents emergency department with chief complaint of rectal pain. The patient reports that she has been having rectal pain and constipation for the last 3 days reports that she has tried to pass a stool ball but has been unable to pass the stool ball the patient has been disimpacted 3 times in the emergency department in the last month and a half patient is on a stool softener Related Data Allergies Allergy/AdvReac Type Severity Reaction Status Date / Time Penicillins Allergy Intermediate Unknown Verified 01/04/24 09:10 vancomycin Allergy Unknown Verified 01/04/24 09:10 Review of Systems Review of Systems: A 10 system review of systems was completed on the patient and is negative except for what is stated in the HPI. Nursing and ancillary documentation was reviewed. PMFSH Past Medical History Medical History Diabetes Hypertension Surgical History Surgical History History of total right hip arthroplasty Hx of cholecystectomy Social History Social History Substance use: never Exam Narrative: GENERAL: Well-appearing, well-nourished, and in no acute distress. HEAD: Normocephalic, atraumatic. EYES: PERRLA and EOMI. ENT: Nares clear, no rhinorrhea or epistaxis. Mucous membranes moist. NECK: Supple. CHEST: Clear to auscultation. No respiratory distress. HEART: Regular rate and rhythm. No murmur heard. Normal peripheral pulses. ABDOMEN: Soft, nontender, nondistended, normal active bowel sounds. : There is a large stool ball present in the rectal vault EXTREMITIES: Normal range of motion. No edema. SKIN: Warm, dry, no rash. NEURO: No focal deficits. Alert and oriented x3. PSYCH: Normal mood and affect. Course Vital Signs Vital signs: Vital Signs Temperature 36.7 C 01/19/24 02:11 Pulse Rate 90 01/19/24 02:11 Respiratory Rate 14 01/19/24 02:11 Blood Pressure 153/75 H 01/19/24 02:11 Pulse Oximetry 97 01/19/24 02:11 Oxygen Delivery Room Air 01/19/24 02:11 Temperature 36.7 C 01/19/24 02:11 Pulse Rate 85 01/19/24 03:42 Respiratory Rate 16 01/19/24 03:42 Blood Pressure 152/92 H 01/19/24 03:42 Pulse Oximetry 97 01/19/24 03:42 Oxygen Delivery Room Air 01/19/24 02:11 Procedures Rectal Disimpaction Rectal Disimpaction #1: Rectal Disimpaction Date: 01/19/24 Rectal Disimpaction Time: 03:18 Time out performed rectal disimpaction: Yes Indication: fecal impaction Procedural Sedation: No Sedation/Analgesia: none Technique: manual disimpaction with gloved finger Result: significant stool output Patient Tolerated Procedure: well Complications: none Additional Comments: approximately cantaloupe sized ball of stool removed from the patient's rectum Medical Decision Making MDM Narrative Medical decision making narrative: Differential diagnosis includes fecal impaction, UTI electrolyte abnormality plain film x-ray of the abdomen showed a large amount of stool urinalysis showed evidence of UTI the patient was started on oral antibiotics the patient will also be started on scheduled MiraLax Vital Signs Vital Signs: Vital Signs Temperature 36.7 C 01/19/24 02:11 Pulse Rate 90 01/19/24 02:11 Respiratory Rate 14 01/19/24 02:11 Blood Pressure 153/75 H 01/19/24 02:11 Pulse Oximetry 97 01/19/24 02:11 Oxygen Delivery Room Air 01/19/24 02:11 Temperature 36.7 C 01/19/24 02:11 Pulse Rate 85 01/19/24 03:42 Respiratory Rate 16 01/19/24 03:42 Blood Pressure 152/92 H 01/19/24 03:42 Pulse Oximetry 97 01/19/24 03:42 Oxygen Delivery Room Air 01/19/24 02:11 Lab Data 01/19/24 03:33 01/19/24 03:33 Labs: Lab Results 01/19/24 Range/Units 03:33 WBC 7.4 (4.5-10.0) K/mm3 RBC 3.85 L (4.2-5.4) M/mm3 Hgb 11.8 L (12.0-15.0) g/dL Hct 34.6 L (37.0-47.0) % MCV 89.9 (80-100) fl MCH 30.6 (26-34) pg MCHC 34.1 (32-36) g/dl RDW 12.1 (11.5-14.5) % Plt Count 167 (150-375) k/mm3 MPV 10.7 H (7.4-10.4) fl Immature Gran % (Auto) 0.3 (0-0.5) % Neut % (Auto) 77.0 H (45.5-73.1) % Lymph % (Auto) 12.4 L (18.3-44.2) % [place] % (Auto) 8.6 H (2.6-8.5) % Eos % (Auto) 0.9 (0-4.4) % Baso % (Auto) 0.8 (0.2-1.2) % Lymph # (Auto) 0.92 (0.9-3.2) K/mm3 [place] # (Auto) 0.6 (0.1-0.6) K/mm3 Eos # (Auto) 0.1 (0-0.3) K/mm3 Baso # (Auto) 0.1 (0.0-0.1) K/mm3 Abs Immat Gran (auto) 0.02 (0.00-0.031) K/mm3 Absolute Neuts (auto) 5.7 (1.3-6.7) K/mm3 Absolute Nucleated RBC 0.000 (0.0-0.012) K/mm3 Nucleated RBC % 0.0 (0.0-0.2) % Sodium 124 L (137-145) mmol/L Potassium 4.1 (3.4-5.0) mmol/L Chloride 92 L (98-107) mmol/L Carbon Dioxide 27 (22-30) mmol/L Anion Gap 5 (4-12) mmol/L BUN 15 (7-17) mg/dL Creatinine 0.70 (0.7-1.0) mg/dL Estim Creat Clear Calc 67 ml/min Estimated GFR > 60 (59 - ) Glucose 174 H (65-110) mg/dL Lactic Acid 2.3 H (0.7-2.0) mmol/L Calcium 8.4 (8.4-10.2) mg/dL Total Bilirubin 0.5 (0.2-1.3) mg/dL AST 28 (14-36) U/L ALT 20 (6-35) U/L Alkaline Phosphatase 75 (38-126) U/L Total Protein 6.0 L (6.3-8.2) g/dL Albumin 3.6 (3.5-5.1) g/dL Urine Color [place] (Yellow) Urine Appearance Cloudy H (Clear) Urine pH 6.0 (5.0-9.0) Ur Specific [place] 1.008 (1.001-1.035) Urine Protein Trace (Negative) mg/dL Urine Glucose (UA) Trace H (Negative) mg/dL Urine Ketones Negative (Negative) mg/dL Ur Blood (Man) 3+ H (Negative) Urine Nitrate Negative (Negative) Urine Bilirubin Negative (Negative) Urine Urobilinogen 0.2 (<2.0) mg/dL Add Ur Microanalysis Reviewed Leukocyte Esterase Rfl 3+ H (Negative) JOANN/UL Urine RBC >100 H (0-2) /hpf Urine WBC >100 H (0-3) /hpf Ur Squamous Epith Cells None seen (Few) /hpf Urine Bacteria 3+ H /hpf Urine Casts 0-2 Discharge Plan Discharge Clinical Impression: Constipation, Acute UTI, Fecal impaction Patient Disposition: Home, Self-Care Condition: Stable Instructions: Antibiotic Form, Constipation (ED), Fecal Impaction (ED), Urinary Tract Infection in Older Adults (ED) Prescriptions: New cephalexin 500 mg capsule 500 mg PO Q12H 7 Days Qty: 14 0RF polyethylene glycol 3350 [Miralax] 17 gram/dose powder 17 g PO BID 7 Days Qty: 238 0RF No Action cephalexin 500 mg capsule 500 mg PO Q6H Qty: 7 0RF ciprofloxacin HCl [Cipro] 250 mg tablet 250 mg PO Q12H Qty: 20 0RF Follow-up/Referrals: UNKNOWN,DOCTOR [Primary Care Provider] - Time of Disposition: 05:09
[2024-01-19 03:42] VITALS: BP 152/92; PULSE 85; RESP 16; O2SAT 97
[2024-01-19 03:43] LABS: Basophils Absolute Auto 0.1 K/mm3 (0.0-0.1); Basophils Percent Auto 0.8 % (0.2-1.2); Eosinophils Absolute Auto 0.1 K/mm3 (0-0.3); Eosinophils Percent Auto 0.9 % (0-4.4); Hematocrit 34.6 % (37.0-47.0); Hemoglobin 11.8 g/dL (12.0-15.0); Immature Granulocyte Absolute 0.02 K/mm3 (0.00-0.031); Immature Granulocyte Percent A 0.3 % (0-0.5); Lymphocytes Absolute Auto 0.92 K/mm3 (0.9-3.2); Lymphocytes Percent Auto 12.4 % (18.3-44.2); Mean Corpuscular HGB Conc 34.1 g/dl (32-36); Mean Corpuscular Hemoglobin 30.6 pg (26-34); Mean Corpuscular Volume 89.9 fl (80-100); Mean Platelet Volume 10.7 fl (7.4-10.4); Monocytes Absolute Auto 0.6 K/mm3 (0.1-0.6); Monocytes Percent Auto 8.6 % (2.6-8.5); Neutrophils Absolute Auto 5.7 K/mm3 (1.3-6.7); Platelet Count Result 167 k/mm3 (150-375); Red Blood Count 3.85 M/mm3 (4.2-5.4); Red Cell Distribution Width 12.1 % (11.5-14.5); White Blood Count 7.4 K/mm3 (4.5-10.0)
[2024-01-19 03:58] LABS: Alanine Aminotransferase 20 U/L (6-35); Albumin Level 3.6 g/dL (3.5-5.1); Alkaline Phosphatase 75 U/L (38-126); Anion Gap 5 mmol/L (4-12); Aspartate Amino Transferase 28 U/L (14-36); Bilirubin,Total 0.5 mg/dL (0.2-1.3); Blood Urea Nitrogen 15 mg/dL (7-17); Calcium 8.4 mg/dL (8.4-10.2); Carbon Dioxide 27 mmol/L (22-30); Chloride 92 mmol/L (98-107); Estimated CRCL calculation 67 ml/min; Estimated Glomerular Filt Rate > 60; Glucose 174 mg/dL (65-110); Lactic Acid Reflex 2.3 mmol/L (0.7-2.0); Potassium 4.1 mmol/L (3.4-5.0); Sodium 124 mmol/L (137-145)
[2024-01-19 04:08] LABS: Need Manual Microscopic Reviewed; Non Pathogenic Casts 0-2; RBC Urine >100 /hpf (0-2); Squamous Epithelial Cell Urine None Seen /hpf (Few); WBC Urine >100 /hpf (0-3)
[2024-01-19 04:18] LABS: Add Urine Microscopic? YES; Appearance Urine Cloudy (Clear); Bilirubin Urine Negative (Negative); Blood Urine 3+ (Negative); Color Urine Amber (Yellow); Glucose Urine UA Trace mg/dL (Negative); Ketones Urine Negative (Negative); Leukocyte Esterase Ur 3+ LEU/UL (Negative); Nitrate Urine Negative (Negative); Protein Urine Trace mg/dL (Negative); Specific Grav Ur 1.008 (1.001-1.035); Urobilinogen Urine 0.2 mg/dL (<2.0)
[2024-01-19 04:19] LABS: Bacteria Urine 3+ /hpf
[2024-01-19 06:00] VITALS: BP 136/90; PULSE 87; RESP 16; O2SAT 98
[2024-01-19 06:38] LABS: Reflex Lactic Acid Yes or No Add Lactic
== END 2024-01-19 06:01 ==
PROVIDERS: Emergency Provider Emergency Medicine
DX: N39.0 Urinary tract infection, site not specified (principal); K56.41 Fecal impaction; E11.9 Type 2 diabetes mellitus without complications; I10 Essential (primary) hypertension; Z96.641 Presence of right artificial hip joint
CPT/HCPCS: 36415; 74018; 80053; 81001; 83605; 85025; 87086; 87181; 99283

== ENCOUNTER 2024-02-08 05:32 | Emergency (ER) | payer MEDICARE, SELFPAY ==
[2024-02-08 05:26] VITALS: BP 143/71; PULSE 109; RESP 19; O2SAT 97
[2024-02-08] MEDS: ONDANSETRON INJ 4 MG/2 ML VIAL IV PUSH (05:43)
[2024-02-08] MEDS: SODIUM CHLORIDE 0.9% IV 1,000 ML 999 ML IV CONT ×2 (05:43→06:42)
--- NOTE | 2024-02-08 05:45 | ED_ITS ---
HPI - General Adult General Chief complaint: Nausea/Vomiting/Diarrhea Stated complaint: n/v/d, rectal pain History of Present Illness HPI narrative: Patient is a 78-year-old female who presents to the emergency department this morning from her extended care facility complaining of nausea, vomiting and diarrhea for the past 24 hours. Per EMS report, snf facility has some a GI bug going around as everybody sick with nausea, vomiting and diarrhea. Patient is currently denying any abdominal pain, however, she is complaining of some perirectal pain secondary to the diarrhea. Also complaining of a mild headache. Denies any fevers or chills, any chest pain or shortness of breath. No additional symptoms or concerns at this time. Related Data Allergies Allergy/AdvReac Type Severity Reaction Status Date / Time Penicillins Allergy Intermediate Unknown Verified 02/08/24 05:34 vancomycin Allergy Redness of Verified 02/08/24 05:35 Skin Review of Systems 2 Review of Systems: All systems are reviewed and are negative unless stated otherwise in the HPI. [facility] Past Medical History Medical History Hypertension Diabetes Surgical History Surgical History History of total right hip arthroplasty Hx of cholecystectomy Social History Social History Substance use: never Exam 2 Narrative: General: Alert, awake, afebrile, in no acute distress, obese. HEENT: PERRL, no rhinorrhea, no post nasal drip, oropharynx clear. Neck: Trachea midline, no JVD, no lymphadenopathy. Cardiovascular: Regular rate and rhythm, no murmurs, rubs or gallops, no peripheral edema. Respiratory: Clear to auscultation bilaterally, no tachypnea, no wheezing, no rhonchi, no rubs, no respiratory distress. Abdomen: Soft, nontender, nondistended, no rebound, no guarding, no peritoneal signs. Musculoskeletal: No joint swelling or deformity, normal muscle tone. Skin: No rashes or petechia, no signs of infection. Psychiatric: Alert and oriented, normal behavior and judgment for situation. Neurological: Alert and oriented to person, place, and time. Follows all commands. No focal deficits, speech is clear and fluent. Course Vital Signs Vital signs: Vital Signs Pulse Rate 109 H 02/08/24 05:26 Respiratory Rate 19 02/08/24 05:26 Blood Pressure 143/71 H 02/08/24 05:26 Pulse Oximetry 97 02/08/24 05:26 Oxygen Delivery Room Air 02/08/24 05:26 Pulse Rate 109 H 02/08/24 05:26 Respiratory Rate 19 02/08/24 05:26 Blood Pressure 143/71 H 02/08/24 05:26 Pulse Oximetry 97 02/08/24 05:26 Oxygen Delivery Room Air 02/08/24 05:26 Medical Decision Making MDM Narrative Medical decision making narrative: The patient was evaluated by myself in the emergency department. History is obtained from patient who is an independent historian and physical exam was performed. External medical records were reviewed at this time. IV was established and pertinent tests were ordered. Patient was administered 1 L IV fluid bolus with normal saline and 4 mg IV Zofran. Laboratory results obtained revealing A magnesium level of 1.4 and sodium of 131 otherwise unremarkable. Urinalysis revealed urinary tract infection nitrate positive. At this time patient was administered 1 g of IV Rocephin and a 2nd L IV fluid bolus with normal saline. Patient was also administered 1 g of IV magnesium. Differential diagnosis considerations include gastroenteritis, dehydration, electrolyte derangements, acute viral syndrome, urinary tract infection. Comorbidities impacting this visit include none. I have evaluated and discussed social determinants of health with the patient that could potentially impact subsequent diagnosis and treatment plans. On repeat assessment of the patient, reevaluation revealed that the patient is doing well and is in no acute distress. Patient symptoms have improved since she arrived to our emergency department. Repeat vital signs were all reviewed and noted to be stable. Differential diagnosis and treatment plan were discussed with the patient at bedside. Patient agrees with discussion and after shared medical decision making agrees with discharge. All questions were answered to the patient's satisfaction. Patient will follow up with her PCP in 3-5 days. Script for Bactrim was provided to the patient to take as prescribed for her UTI. Patient was provided with strict return precautions and instructed to return to the emergency department if any new or worsening symptoms develop. The patient was discharged in stable condition. Vital Signs Vital Signs: Vital Signs Pulse Rate 109 H 02/08/24 05:26 Respiratory Rate 19 02/08/24 05:26 Blood Pressure 143/71 H 02/08/24 05:26 Pulse Oximetry 97 02/08/24 05:26 Oxygen Delivery Room Air 02/08/24 05:26 Pulse Rate 109 H 02/08/24 05:26 Respiratory Rate 19 02/08/24 05:26 Blood Pressure 143/71 H 02/08/24 05:26 Pulse Oximetry 97 02/08/24 05:26 Oxygen Delivery Room Air 02/08/24 05:26 Lab Data 02/08/24 05:46 02/08/24 05:46 Labs: Lab Results 02/08/24 Range/Units 05:46 WBC 9.0 (4.5-10.0) K/mm3 RBC 4.41 (4.2-5.4) M/mm3 Hgb 13.4 (12.0-15.0) g/dL Hct 40.6 (37.0-47.0) % MCV 92.1 (80-100) fl MCH 30.4 (26-34) pg MCHC 33.0 (32-36) g/dl RDW 12.6 (11.5-14.5) % Plt Count 212 (150-375) k/mm3 MPV 10.5 H (7.4-10.4) fl Immature Gran % (Auto) 0.3 (0-0.5) % Neut % (Auto) 80.4 H (45.5-73.1) % Lymph % (Auto) 9.8 L (18.3-44.2) % [place] % (Auto) 8.8 H (2.6-8.5) % Eos % (Auto) 0.1 (0-4.4) % Baso % (Auto) 0.6 (0.2-1.2) % Lymph # (Auto) 0.88 L (0.9-3.2) K/mm3 [place] # (Auto) 0.8 H (0.1-0.6) K/mm3 Eos # (Auto) 0.0 (0-0.3) K/mm3 Baso # (Auto) 0.1 (0.0-0.1) K/mm3 Abs Immat Gran (auto) 0.03 (0.00-0.031) K/mm3 Absolute Neuts (auto) 7.2 H (1.3-6.7) K/mm3 Absolute Nucleated RBC 0.000 (0.0-0.012) K/mm3 Nucleated RBC % 0.0 (0.0-0.2) % Sodium 131 L (137-145) mmol/L Potassium 3.7 (3.4-5.0) mmol/L Chloride 99 (98-107) mmol/L Carbon Dioxide 25 (22-30) mmol/L Anion Gap 7 (4-12) mmol/L BUN 20 H (7-17) mg/dL Creatinine 0.70 (0.7-1.0) mg/dL Estim Creat Clear Calc 66 ml/min Estimated GFR > 60 (59 - ) Glucose 176 H (65-110) mg/dL Calcium 8.9 (8.4-10.2) mg/dL Magnesium 1.4 L (1.6-2.3) mg/dL Total Bilirubin 1.0 (0.2-1.3) mg/dL AST 25 (14-36) U/L ALT 25 (6-35) U/L Alkaline Phosphatase 83 (38-126) U/L Total Protein 7.0 (6.3-8.2) g/dL Albumin 3.8 (3.5-5.1) g/dL Lipase 45 (23-300) U/L Urine Color Yellow (Yellow) Urine Appearance Turbid H (Clear) Urine pH 5.0 (5.0-9.0) Ur Specific [place] 1.016 (1.001-1.035) Urine Protein 1+ H (Negative) mg/dL Urine Glucose (UA) Negative (Negative) mg/dL Urine Ketones Negative (Negative) mg/dL Ur Blood (Man) 3+ H (Negative) Urine Nitrate Positive H (Negative) Urine Bilirubin Negative (Negative) Urine Urobilinogen 0.2 (<2.0) mg/dL Add Ur Microanalysis Reviewed Leukocyte Esterase Rfl 3+ H (Negative) JOANN/UL Urine RBC 21-50 H (0-2) /hpf Urine WBC >100 H (0-3) /hpf Ur Squamous Epith Cells Few (Few) /hpf Urine Bacteria Rare /hpf Urine Casts 3-5 Influenza A (RT-PCR) Negative (Negative) Influenza B (RT-PCR) Negative (Negative) RSV (RT-PCR) Negative (Negative) SARS-CoV-2 RNA (RT-PCR) Negative (Negative) Discharge Plan Discharge Clinical Impression: Gastroenteritis, Hypomagnesemia, Acute UTI Patient Disposition: SNF Condition: Improved Instructions: Gastroenteritis (ED), Urinary Tract Infection in Older Adults (ED) Additional Instructions: Please follow-up with your family doctor within the next 3-5 days. Return to the emergency department if any new or worsening symptoms develop. Take the prescribed antibiotic as instructed for urinary tract infection. Patient Language: Kazakh Prescriptions: New sulfamethoxazole-trimethoprim [Bactrim DS] 800-160 mg tablet 1 tablet PO Q12H 5 Days Qty: 10 0RF sulfamethoxazole-trimethoprim [Bactrim DS] 800-160 mg tablet 1 tablet PO Q12H 5 Days Qty: 10 0RF No Action cephalexin 500 mg capsule 500 mg PO Q6H Qty: 7 0RF ciprofloxacin HCl [Cipro] 250 mg tablet 250 mg PO Q12H Qty: 20 0RF cephalexin 500 mg capsule 500 mg PO Q12H 7 Days Qty: 14 0RF polyethylene glycol 3350 [Miralax] 17 gram/dose powder 17 g PO BID 7 Days Qty: 238 0RF Follow-up/Referrals: Jae Sofia MD [Physician] - 3 Days UNKNOWN,DOCTOR [Primary Care Provider] - Time of Disposition: 06:44
[2024-02-08 05:57] VITALS: BP 162/71; PULSE 92; RESP 17; O2SAT 99
[2024-02-08 06:06] LABS: Basophils Absolute Auto 0.1 K/mm3 (0.0-0.1); Basophils Percent Auto 0.6 % (0.2-1.2); Eosinophils Percent Auto 0.1 % (0-4.4); Hematocrit 40.6 % (37.0-47.0); Hemoglobin 13.4 g/dL (12.0-15.0); Immature Granulocyte Absolute 0.03 K/mm3 (0.00-0.031); Immature Granulocyte Percent A 0.3 % (0-0.5); Lymphocytes Absolute Auto 0.88 K/mm3 (0.9-3.2); Lymphocytes Percent Auto 9.8 % (18.3-44.2); Mean Corpuscular Hemoglobin 30.4 pg (26-34); Mean Corpuscular Volume 92.1 fl (80-100); Mean Platelet Volume 10.5 fl (7.4-10.4); Monocytes Absolute Auto 0.8 K/mm3 (0.1-0.6); Monocytes Percent Auto 8.8 % (2.6-8.5); Neutrophils Absolute Auto 7.2 K/mm3 (1.3-6.7); Neutrophils Percent Auto 80.4 % (45.5-73.1); Platelet Count Result 212 k/mm3 (150-375); Red Blood Count 4.41 M/mm3 (4.2-5.4); Red Cell Distribution Width 12.6 % (11.5-14.5)
[2024-02-08 06:16] LABS: Alanine Aminotransferase 25 U/L (6-35); Albumin Level 3.8 g/dL (3.5-5.1); Alkaline Phosphatase 83 U/L (38-126); Anion Gap 7 mmol/L (4-12); Aspartate Amino Transferase 25 U/L (14-36); Blood Urea Nitrogen 20 mg/dL (7-17); Calcium 8.9 mg/dL (8.4-10.2); Carbon Dioxide 25 mmol/L (22-30); Chloride 99 mmol/L (98-107); Estimated CRCL calculation 66 ml/min; Estimated Glomerular Filt Rate > 60; Glucose 176 mg/dL (65-110); Lipase 45 U/L (23-300); Magnesium 1.4 mg/dL (1.6-2.3); Potassium 3.7 mmol/L (3.4-5.0); Sodium 131 mmol/L (137-145)
[2024-02-08 06:33] LABS: Add Urine Microscopic? YES; Appearance Urine Turbid (Clear); Bacteria Urine Rare /hpf; Bilirubin Urine Negative (Negative); Blood Urine 3+ (Negative); Color Urine Yellow (Yellow); Glucose Urine UA Negative (Negative); Ketones Urine Negative (Negative); Leukocyte Esterase Ur 3+ LEU/UL (Negative); Need Manual Microscopic Reviewed; Nitrate Urine Positive (Negative); Protein Urine 1+ mg/dL (Negative); RBC Urine 21-50 /hpf (0-2); Specific Grav Ur 1.016 (1.001-1.035); Squamous Epithelial Cell Urine Few /hpf (Few); Urobilinogen Urine 0.2 mg/dL (<2.0); WBC Urine >100 /hpf (0-3)
[2024-02-08] MEDS: MAGNESIUM SULF 1 GM/D5W 100 ML 1 GM/100 ML BAG IVPB (06:40)
[2024-02-08 06:43] LABS: Influenza A QL RT-PCR Negative (Negative); Influenza B QL RT-PCR Negative (Negative); RSV RNA, RT-PCR Negative (Negative); SARS-CoV-2 RNA PCR Negative (Negative)
[2024-02-08] MEDS: ACETAMINOPHEN 500 MG TABLET 1000 MG PO (07:17)
[2024-02-08 07:20] VITALS: BP 152/49; PULSE 94; RESP 17; O2SAT 99
--- NOTE | 2024-02-08 07:56 | PC.NURSE ---
Called family, spoke with her daughter about discharge instructions and if she can provide transportation. Daughter said she will call people and will try to find transportation.
[2024-02-08 09:21] VITALS: BP 114/50; PULSE 70; RESP 20; O2SAT 98
== END 2024-02-08 09:22 ==
PROVIDERS: Emergency Provider Emergency Medicine
DX: K52.9 Noninfective gastroenteritis and colitis, unspecified (principal); E83.42 Hypomagnesemia; N39.0 Urinary tract infection, site not specified; I10 Essential (primary) hypertension; E11.9 Type 2 diabetes mellitus without complications; Z96.641 Presence of right artificial hip joint; Z20.822 Contact with and (suspected) exposure to COVID-19
CPT/HCPCS: 36415; 80053; 81001; 83690; 83735; 85025; 87077; 87086; 87147; 87181; 87186; 87637; 96361; 96365; 96367; 96375; 99284; A9270; J0696; J2405; J3475; J7030

== ENCOUNTER 2024-05-31 15:33 | Inpatient (IN) | payer MEDICARE, SELFPAY ==
[2024-05-31] VITALS (20 sets, daily range): BP systolic 111–153; BP diastolic 48–76; PULSE 80–107; RESP 13–23; TEMP 36.8–37; O2SAT 94–100; BMI 40.4
--- NOTE | ~2024-05-31 | CT_ITS ---
CT abdomen pelvis w con Ordering provider: Kye Cartwright MD History: 78 years Female with . Abdominal pain . Comparison: January 03, 2024 Technique: CT abdomen and pelvis with IV and without oral contrast. Automated exposure control and it erative reconstruction technique were employed. The dose-length product was 1737.17 mGy-cm. 100 mL Om nipaque 350 was given IV. Findings: VISUALIZED LOWER CHEST: Dependent atelectatic changes. UPPER ABDOMINAL ORGANS: Liver: Normal. Gallbladder: Status post cholecystectomy. Prominent CBD measuring 1.4 cm. Spleen: Normal. Stomach/duodenum: Postoperative changes in the stomach. Sliding hiatus hernia. Pancreas: Normal. Adrenals: Normal. Kidneys: Bilateral renal cysts. PELVIC ORGANS: The bladder shows underfilling with thickened wall and enhancement of the mucosa. BOWEL AND MESENTERY: Colon: No evidence of diverticulitis or appendicitis.. Small Bowel: Normal. No obstruction. Peritoneum/mesentery: No free air or free fluid. No mesenteric lymphadenopathy. RETROPERITONEUM: Mild atheromatous disease of the abdominal aorta. No retroperitoneal lymphadenopat hy. MUSCULOSKELETAL: Superficial soft tissues: Small fat-containing umbilical hernia. The superficial soft tissues are nor mal. Bones: Age appropriate degenerative changes of the spine. Dextroscoliosis. IMPRESSION: 1. Thickened wall of the urinary bladder with enhancement of the mucosa suggestive of cystitis. Infi ltration cannot be excluded. Further evaluation advised. 2. Sliding hiatus hernia. 3. Bilateral small renal cysts. 4. Dilated CBD. Reviewed, dictated and finalized at location A. IMPRESSION: 1. Thickened wall of the urinary bladder with enhancement of the mucosa sugges tive of cystitis. Infiltration cannot be excluded. Further evaluation advised. 2. Sliding hiatus hernia. 3. Bilateral small renal cysts. 4. Dilated CBD.
[2024-05-31 16:39] LABS: Basophils Percent Auto 0.2 % (0.2-1.2); Eosinophils Percent Auto 0.1 % (0-4.4); Hematocrit 38.6 % (37.0-47.0); Immature Granulocyte Absolute 0.05 K/mm3 (0.00-0.031); Immature Granulocyte Percent A 0.4 % (0-0.5); Lymphocytes Absolute Auto 2.03 K/mm3 (0.9-3.2); Lymphocytes Percent Auto 14.3 % (18.3-44.2); Mean Corpuscular HGB Conc 33.7 g/dl (32-36); Mean Corpuscular Hemoglobin 30.4 pg (26-34); Mean Corpuscular Volume 90.4 fl (80-100); Mean Platelet Volume 10.4 fl (7.4-10.4); Monocytes Absolute Auto 1.3 K/mm3 (0.1-0.6); Monocytes Percent Auto 8.9 % (2.6-8.5); Neutrophils Absolute Auto 10.8 K/mm3 (1.3-6.7); Neutrophils Percent Auto 76.1 % (45.5-73.1); Platelet Count Result 218 k/mm3 (150-375); Red Blood Count 4.27 M/mm3 (4.2-5.4); Red Cell Distribution Width 11.8 % (11.5-14.5); White Blood Count 14.2 K/mm3 (4.5-10.0)
[2024-05-31 16:41] LABS: Add Urine Microscopic? YES; Appearance Urine Turbid (Clear); Bacteria Urine 2+ /hpf; Bilirubin Urine Negative (Negative); Blood Urine 2+ (Negative); Budding Yeast Urine Present /hpf; Color Urine Yellow (Yellow); Glucose Urine UA 2+ mg/dL (Negative); Ketones Urine Negative (Negative); Leukocyte Esterase Ur 3+ LEU/UL (Negative); Need Manual Microscopic Reviewed; Nitrate Urine Positive (Negative); Non Pathogenic Casts 0-2; Protein Urine 2+ mg/dL (Negative); RBC Urine 21-50 /hpf (0-2); Specific Grav Ur 1.018 (1.001-1.035); Squamous Epithelial Cell Urine None Seen /hpf (Few); WBC Urine >100 /hpf (0-3); pH Urine 5.5 (5.0-9.0)
[2024-05-31 16:50] LABS: Alanine Aminotransferase 24 U/L (6-35); Alkaline Phosphatase 98 U/L (38-126); Anion Gap 8 mmol/L (4-12); Aspartate Amino Transferase 24 U/L (14-36); Bilirubin,Total 1.1 mg/dL (0.2-1.3); Blood Urea Nitrogen 16 mg/dL (7-17); Calcium 8.7 mg/dL (8.4-10.2); Carbon Dioxide 28 mmol/L (22-30); Chloride 86 mmol/L (98-107); Estimated CRCL calculation 55 ml/min; Estimated Glomerular Filt Rate > 60; Glucose 203 mg/dL (65-110); Lipase 61 U/L (23-300); Potassium 4.5 mmol/L (3.4-5.0); Sodium 122 mmol/L (137-145)
--- NOTE | 2024-05-31 18:10 | ED_ITS ---
HPI - General Adult General Chief complaint: Abdominal Pain Stated complaint: abd pain Time Seen by Provider: 05/31/24 16:42 History of Present Illness HPI narrative: Patient is a 78-year-old female who presents emergency department with chief complaint of abdominal pain nausea and constipation. The patient was given MiraLax morning and just prior to transport the patient had a very large bowel explosive bowel movement at the facility where she is resident of Related Data Allergies Allergy/AdvReac Type Severity Reaction Status Date / Time Penicillins Allergy Intermediate Unknown Verified 05/31/24 15:57 vancomycin Allergy Redness of Verified 05/31/24 15:57 Skin Review of Systems 2 Review of Systems: A 10 system review of systems was completed on the patient and is negative except for what is stated in the HPI. Nursing and ancillary documentation was reviewed. PMFSH Past Medical History Medical History Hypertension Diabetes Surgical History Surgical History History of total right hip arthroplasty Hx of cholecystectomy Social History Social History Substance use: never Exam 2 Narrative: GENERAL: Well-appearing, well-nourished, and in no acute distress. HEAD: Normocephalic, atraumatic. EYES: PERRLA and EOMI. ENT: Nares clear, no rhinorrhea or epistaxis. Mucous membranes moist. NECK: Supple. CHEST: Clear to auscultation. No respiratory distress. HEART: Regular rate and rhythm. No murmur heard. Normal peripheral pulses. ABDOMEN: Soft, diffuse mild tenderness left lower quadrant,, nondistended, normal active bowel sounds. EXTREMITIES: Normal range of motion. No edema. SKIN: Warm, dry, no rash. NEURO: No focal deficits. Alert and oriented x3. PSYCH: Normal mood and affect. Course Vital Signs Vital signs: Vital Signs Temperature 37.0 C 05/31/24 15:34 Pulse Rate 107 H 05/31/24 15:34 Respiratory Rate 22 H 05/31/24 15:34 Blood Pressure 153/76 H 05/31/24 15:34 Pulse Oximetry 100 05/31/24 15:34 Oxygen Delivery Room Air 05/31/24 15:34 Temperature 37.0 C 05/31/24 15:34 Pulse Rate 83 05/31/24 18:46 Respiratory Rate 17 05/31/24 18:46 Blood Pressure 146/74 H 05/31/24 18:46 Pulse Oximetry 97 05/31/24 17:46 Oxygen Delivery Room Air 05/31/24 15:34 Medical Decision Making MDM Narrative Medical decision making narrative: Differential diagnosis includes UTI, bowel obstruction, diverticulitis, colitis Laboratory studies shows a white count of 14 2 electrolytes within normal limits urinalysis showed turbid urine greater 100 white blood cells in the urine but in [place] 2+ bacteria 3+ leukocyte esterase Vital Signs Vital Signs: Vital Signs Temperature 37.0 C 05/31/24 15:34 Pulse Rate 107 H 05/31/24 15:34 Respiratory Rate 22 H 05/31/24 15:34 Blood Pressure 153/76 H 05/31/24 15:34 Pulse Oximetry 100 05/31/24 15:34 Oxygen Delivery Room Air 05/31/24 15:34 Temperature 37.0 C 05/31/24 15:34 Pulse Rate 83 05/31/24 18:46 Respiratory Rate 17 05/31/24 18:46 Blood Pressure 146/74 H 05/31/24 18:46 Pulse Oximetry 97 05/31/24 17:46 Oxygen Delivery Room Air 05/31/24 15:34 Lab Data 05/31/24 16:35 05/31/24 16:35 Labs: Lab Results 05/31/24 05/31/24 Range/Units 16:06 16:35 WBC 14.2 H (4.5-10.0) K/mm3 RBC 4.27 (4.2-5.4) M/mm3 Hgb 13.0 (12.0-15.0) g/dL Hct 38.6 (37.0-47.0) % MCV 90.4 (80-100) fl MCH 30.4 (26-34) pg MCHC 33.7 (32-36) g/dl RDW 11.8 (11.5-14.5) % Plt Count 218 (150-375) k/mm3 MPV 10.4 (7.4-10.4) fl Immature Gran % (Auto) 0.4 (0-0.5) % Neut % (Auto) 76.1 H (45.5-73.1) % Lymph % (Auto) 14.3 L (18.3-44.2) % Cobb % (Auto) 8.9 H (2.6-8.5) % Eos % (Auto) 0.1 (0-4.4) % Baso % (Auto) 0.2 (0.2-1.2) % Lymph # (Auto) 2.03 (0.9-3.2) K/mm3 Cobb # (Auto) 1.3 H (0.1-0.6) K/mm3 Eos # (Auto) 0.0 (0-0.3) K/mm3 Baso # (Auto) 0.0 (0.0-0.1) K/mm3 Abs Immat Gran (auto) 0.05 H (0.00-0.031) K/mm3 Absolute Neuts (auto) 10.8 H (1.3-6.7) K/mm3 Absolute Nucleated RBC 0.000 (0.0-0.012) K/mm3 Nucleated RBC % 0.0 (0.0-0.2) % Sodium 122 L (137-145) mmol/L Potassium 4.5 (3.4-5.0) mmol/L Chloride 86 L (98-107) mmol/L Carbon Dioxide 28 (22-30) mmol/L Anion Gap 8 (4-12) mmol/L BUN 16 (7-17) mg/dL Creatinine 0.83 (0.7-1.0) mg/dL Estim Creat Clear Calc 55 ml/min Estimated GFR > 60 (59 - ) Glucose 203 H (65-110) mg/dL Calcium 8.7 (8.4-10.2) mg/dL Total Bilirubin 1.1 (0.2-1.3) mg/dL AST 24 (14-36) U/L ALT 24 (6-35) U/L Alkaline Phosphatase 98 (38-126) U/L Total Protein 7.0 (6.3-8.2) g/dL Albumin 4.0 (3.5-5.1) g/dL Lipase 61 (23-300) U/L Urine Color Yellow (Yellow) Urine Appearance Turbid H (Clear) Urine pH 5.5 (5.0-9.0) Ur Specific [place] 1.018 (1.001-1.035) Urine Protein 2+ H (Negative) mg/dL Urine Glucose (UA) 2+ H (Negative) mg/dL Urine Ketones Negative (Negative) mg/dL Ur Blood (Man) 2+ H (Negative) Urine Nitrate Positive H (Negative) Urine Bilirubin Negative (Negative) Urine Urobilinogen 1.0 (<2.0) mg/dL Add Ur Microanalysis Reviewed Leukocyte Esterase Rfl 3+ H (Negative) JOANN/UL Urine RBC 21-50 H (0-2) /hpf Urine WBC >100 H (0-3) /hpf Ur Squamous Epith Cells None seen (Few) /hpf Urine Bacteria 2+ H /hpf Urine Casts 0-2 Urine Yeast (Budding) Present H (None) /hpf Discharge Plan Discharge Clinical Impression: Abdominal pain, Acute UTI Patient Disposition: Still a Patient Condition: Stable Instructions: Antibiotic Form Patient Language: Peruvian Prescriptions: No Action cephalexin 500 mg capsule 500 mg PO Q6H Qty: 7 0RF sulfamethoxazole-trimethoprim [Bactrim DS] 800-160 mg tablet 1 tablet PO Q12H 5 Days Qty: 10 0RF sulfamethoxazole-trimethoprim [Bactrim DS] 800-160 mg tablet 1 tablet PO Q12H 5 Days Qty: 10 0RF ciprofloxacin HCl [Cipro] 250 mg tablet 250 mg PO Q12H Qty: 20 0RF cephalexin 500 mg capsule 500 mg PO Q12H 7 Days Qty: 14 0RF polyethylene glycol 3350 [Miralax] 17 gram/dose powder 17 g PO BID 7 Days Qty: 238 0RF Follow-up/Referrals: UNKNOWN,DOCTOR [Primary Care Provider] - Time of Disposition: 19:09
--- NOTE | 2024-05-31 19:12 | P.HP_ITS ---
H&P: HPI History of Present Illness Date/Time: 05/31/24 19:12 Chief Complaint: UTI Narrative: 78-year-old female who presents emergency department with a chief complaint of abdominal pain, nausea, and constipation. The patient lives in a halfway. Denies any recent nasal oxygen. No significant past medical history other than knee replacement and shoulder replacement. In the ED, the patient was given Miralax morning, and just prior to transport, the patient had a huge bowel explosive bowel movement. Unfortunately, the patient has a UTI, and the previous urine culture shows Pseudomonas and Enterococcus. The patient is allergic to penicillin and vancomycin. The patient will be started on meropenem. Pertinent ED labs: WBC 14.2, hemoglobin 13, hematocrit 38.6, platelet 218, so dium 122, potassium 4.5, chloride 86, creatinine 0.8, glucose 203. UA: Urine appearance turbid, positive for nitrate and leukocyte esterase, RBC 21-50, WBCs greater than 100, yeast present The patient will be admitted in the setting of UTI, hyponatremia, and possible Radha vaginitis. For UTI, the patient will be started on meropenem due to a previous urine culture showing Pseudomonas and Enterococcus, and the patient is allergic to penicillin and vancomycin. The patient also will be given fluconazole for possible Radha vaginitis (urinalysis positive for yeast). Patient has hyponatremia 122. Her previous sodium on 02/08/2024 shows 131, and sodium before 01/19/2024 shows 124. Initially, I believed the patient possibly had hyponatremia due to dehydration. Still, upon talking to the patient, she drinks a lot of fluid, so I will consider fluid restriction and monitor the sodium q.4 hours. Medication review shows no indication of medication etiology versus cancerous etiology versus SIADH. Review of Systems Review of Systems: A 10 system review of systems was completed on the patient and is negative except for what is stated in the HPI. Nursing and ancillary documentation was reviewed. [facility] Past Medical History Medical History Hypertension Diabetes Surgical History Surgical History History of total right hip arthroplasty Hx of cholecystectomy Family History Family History (Updated 05/31/24 @ 21:19 by Cris Foley RN) Sibling Cancer Grandparent Diabetes mellitus Throat cancer Mother Diabetes mellitus Social History Social History Smoking status: Never smoker Alcohol intake: never Substance use: never Do You Feel Safe in your Home?: Yes Lack of Transportation: No Lack of Food: Never True Current Housing: I Have Housing Concerned About Future Housing: No Difficulty Paying Gas/Electric Bills: No Difficulty Paying for Meds: No Currently Unemployed: No Education: Associate Degree Difficulty w/ Childcare or Family Care: No Spiritual care concerns: No Meds Home Medications and Allergies Home Medications ?Medication ?Instructions ?Recorded ?Confirmed ?Type atorvastatin 10 mg tablet (Lipitor) 10 mg PO DAILY 05/31/24 05/31/24 History bisacodyl 5 mg tablet 5 mg PO BID 05/31/24 05/31/24 History gabapentin 300 mg capsule 300 mg PO TID 05/31/24 05/31/24 History hydrocodone 5 mg-acetaminophen 325 1 tablet PO Q6H PRN pain (scale 05/31/24 05/31/24 History mg tablet score 4-6) lisinopril 10 mg tablet 10 mg PO DAILY 05/31/24 05/31/24 History meloxicam 15 mg tablet 15 mg PO DAILY 05/31/24 05/31/24 History polyethylene glycol 3350 17 17 g PO DAILY PRN constipation 05/31/24 05/31/24 History gram/dose oral powder (Miralax) trazodone 100 mg tablet 100 mg PO HS 05/31/24 05/31/24 History Allergies Allergy/AdvReac Type Severity Reaction Status Date / Time Penicillins Allergy Intermediate Unknown Verified 05/31/24 15:57 vancomycin Allergy Redness of Verified 05/31/24 15:57 Skin Vital Signs Vital Signs - 24 hr 05/31/24 15:34 05/31/24 15:59 05/31/24 16:00 Temperature 98.6 F Pulse Rate 107 H 92 90 Respiratory Rate 22 H 23 H 20 Blood Pressure 153/76 H Pulse Oximetry 100 97 98 Oxygen Delivery Room Air 05/31/24 16:15 05/31/24 16:30 05/31/24 16:45 Temperature Pulse Rate 85 89 83 Respiratory Rate 16 14 18 Blood Pressure Pulse Oximetry 99 97 100 Oxygen Delivery 05/31/24 17:00 04/15/25 17:15 05/31/24 17:30 Temperature Pulse Rate 92 89 84 Respiratory Rate 17 16 16 Blood Pressure 111/48 L Pulse Oximetry 99 99 97 Oxygen Delivery 05/31/24 17:31 05/31/24 17:31 05/31/24 17:32 Temperature Pulse Rate 82 82 82 Respiratory Rate 16 16 14 Blood Pressure 117/59 L 117/59 L Pulse Oximetry 100 97 96 Oxygen Delivery 05/31/24 17:45 05/31/24 17:46 05/31/24 18:15 Temperature Pulse Rate 80 93 81 Respiratory Rate 14 14 15 Blood Pressure 115/67 Pulse Oximetry 96 97 Oxygen Delivery 05/31/24 18:16 05/31/24 18:30 05/31/24 18:31 Temperature Pulse Rate 80 84 84 Respiratory Rate 13 18 18 Blood Pressure 122/65 131/56 L Pulse Oximetry Oxygen Delivery 05/31/24 18:45 05/31/24 18:46 Temperature Pulse Rate 84 83 Respiratory Rate 18 17 Blood Pressure 146/74 H Pulse Oximetry Oxygen Delivery Exam Narrative: GENERAL: Well-appearing, well-nourished, and in no acute distress. HEAD: Normocephalic, atraumatic. EYES: PERRLA and EOMI. ENT: Nares clear, no rhinorrhea or epistaxis. Mucous membranes moist. NECK: Supple. CHEST: Clear to auscultation. No respiratory distress. HEART: Regular rate and rhythm. No murmur heard. Normal peripheral pulses. ABDOMEN: Soft, diffuse mild tenderness left lower quadrant,, nondistended, normal active bowel sounds. EXTREMITIES: Normal range of motion. No edema. SKIN: Warm, dry, no rash. NEURO: No focal deficits. Alert and oriented x3. PSYCH: Normal mood and affect. H&P: Results Labs Labs: Short CBC 05/31/24 Range/Units 16:35 WBC 14.2 H (4.5-10.0) K/mm3 Hgb 13.0 (12.0-15.0) g/dL Hct 38.6 (37.0-47.0) % Plt Count 218 (150-375) k/mm3 BMP 05/31/24 16:35 Sodium 122 L Potassium 4.5 Chloride 86 L Carbon Dioxide 28 BUN 16 Creatinine 0.83 Glucose 203 H Calcium 8.7 Liver Function 05/31/24 Range/Units 16:35 Total Bilirubin 1.1 (0.2-1.3) mg/dL AST 24 (14-36) U/L ALT 24 (6-35) U/L Alkaline Phosphatase 98 (38-126) U/L Albumin 4.0 (3.5-5.1) g/dL Urine 05/31/24 Range/Units 16:06 Urine Color Yellow (Yellow) Urine Appearance Turbid H (Clear) Urine pH 5.5 (5.0-9.0) Ur Specific [place] 1.018 (1.001-1.035) Urine Protein 2+ H (Negative) mg/dL Urine Glucose (UA) 2+ H (Negative) mg/dL Assessment and Plan Assessment and plan (1) Abdominal pain: Code(s): R10.9 - Unspecified abdominal pain Status: Acute (2) Acute UTI: Code(s): N39.0 - Urinary tract infection, site not specified Status: Acute (3) Hyponatremia: Code(s): E87.1 - Hypo-osmolality and hyponatremia Status: Acute Plan HypoNa -Asymptomatic HypoNa -TSH pending -if necessary Cortisol will be measured -Possible due to polydipsia -repeat sodium at 11:00 p.m. -fluid restriction 1 L -if no improvement can try trial of fluids -Euvolemia -Goal 6-8 meq/l in 24 hr period -Urine Na pending -urine osmolarity pending -no evidence of a pulmonary disease or cancer or medication UTI/cystitis -Order urine culture -Reviewed previous urine culture which is positive for Pseudomonas aeruginosa and Enterococcus resistant to fluoroquinolones -Allergic to penicillin and vancomycin -Started meropenem -Monitor culture -Monitor vitals Constipation CT abdomen pelvis:1. Thickened wall of the urinary bladder with enhancement of the mucosa suggestive of cystitis. Infiltration cannot be excluded. Further evaluation advised.2. Sliding hiatus hernia.3. Bilateral small renal cysts.4. Dilated CBD. Had a huge bowel movement in ED Strict bowel regimen Code : full code DVT prophylaxis: Lovenox 40 subcutaneous daily Hospitalist MIPS Advance Care Plan I have confirmed that the patient's Advanced Care Plan is present, code status is documented, or surrogate decision maker is listed in patient medical record.: Yes Medication Reconciliation I have utilized all available resources to obtain, update and review the patients current medications (includes all prescriptions, OTC, herbals, cannabis, and nutritional supplements).: Yes
[2024-05-31] MEDS: MEROPENEM 1 GM/NS 100 ML 1 GM/100 ML BAG IVPB (19:34)
--- NOTE | 2024-05-31 19:39 | PC.NURSE ---
Hospitalist, Jayant Ma MD VORB d/c 70ml/hr NS fluid bolus. verbalizes starting fluid restriction.
--- NOTE | 2024-05-31 20:50 | ADMGEN ---
This patient, Maria M Lombardo, was admitted to Medical Room 347-. Patient/family oriented to hospital policies and general routines including ID bracelet, bed and alarms, visiting hours, pain management, procedures, bathroom and other care routines, personal items, smoking policy, room service/diet, and visiting hours. Information on how to activate the Rapid Response Team has been discussed. Patient/Family are encouraged to report perceived risks to care and to ask questions if they do not understand what they are told or what they should do.
[2024-05-31] MEDS: ACETAMINOPHEN 325 MG TABLET 650 MG PO (21:26)
[2024-05-31] MEDS: SACCHAROMYCES BOULARDII 250 MG CAPSULE PO (21:26)
[2024-05-31 23:17] LABS: Sodium 123 mmol/L (137-145)
[2024-06-01 00:34] LABS: Free T4 Free Thyroxine Reflex 1.07 ng/dL (0.78-2.19)
[2024-06-01 01:17] LABS: Total Triiodothyronine (T3) 0.75 NG/ML (0.97-1.69)
[2024-06-01] MEDS: HYDROcodone/acetaminophen (*CRX) 5-325 MG TABLET 1 TAB PO ×2 (05:01→21:26)
[2024-06-01] MEDS: MEROPENEM 1 GM/NS 100 ML 1 GM/100 ML BAG IVPB ×3 (05:04→21:19)
[2024-06-01 05:28] LABS: Hematocrit 35.5 % (37.0-47.0); Hemoglobin 12.1 g/dL (12.0-15.0); Mean Corpuscular HGB Conc 34.1 g/dl (32-36); Mean Corpuscular Hemoglobin 30.9 pg (26-34); Mean Corpuscular Volume 90.8 fl (80-100); Mean Platelet Volume 10.4 fl (7.4-10.4); Platelet Count Result 178 k/mm3 (150-375); Red Blood Count 3.91 M/mm3 (4.2-5.4); Red Cell Distribution Width 11.9 % (11.5-14.5); White Blood Count 12.6 K/mm3 (4.5-10.0)
[2024-06-01 05:38] LABS: Alanine Aminotransferase 19 U/L (6-35); Albumin Level 3.5 g/dL (3.5-5.1); Alkaline Phosphatase 92 U/L (38-126); Anion Gap 6 mmol/L (4-12); Aspartate Amino Transferase 26 U/L (14-36); Bilirubin,Total 1.1 mg/dL (0.2-1.3); Blood Urea Nitrogen 15 mg/dL (7-17); Calcium 8.1 mg/dL (8.4-10.2); Carbon Dioxide 28 mmol/L (22-30); Chloride 89 mmol/L (98-107); Estimated CRCL calculation 55 ml/min; Estimated Glomerular Filt Rate > 60; Glucose 176 mg/dL (65-110); Potassium 4.2 mmol/L (3.4-5.0); Sodium 123 mmol/L (137-145)
[2024-06-01 06:00] VITALS: BP 138/72; PULSE 95; RESP 18; TEMP 36.3; O2SAT 96
[2024-06-01] MEDS: polyethylene glycoL 3350 17 GM POWD.PACK PO (08:56)
[2024-06-01] MEDS: SACCHAROMYCES BOULARDII 250 MG CAPSULE PO ×3 (08:57→17:32)
[2024-06-01] MEDS: ENOXAPARIN 40 MG/0.4 ML SYRINGE SUB-Q (08:57)
[2024-06-01 09:18] LABS: Sodium Urine Random 69 meq/L
--- NOTE | 2024-06-01 13:03 | PM.IMPN ---
Progress Note: A&P Assessment and Plan (1) Abdominal pain: Code(s): R10.9 - Unspecified abdominal pain Status: Acute (2) Acute UTI: Code(s): N39.0 - Urinary tract infection, site not specified Status: Acute (3) Hyponatremia: Code(s): E87.1 - Hypo-osmolality and hyponatremia Status: Acute Plan 78-year-old female who presents emergency department with a chief complaint of abdominal pain, nausea, and constipation. hx of knee replacement and shoulder replacement. In the ED, the patient was given Miralax morning, and just prior to transport, the patient had a huge bowel explosive bowel movement. the patient was also found UTI, and the previous urine culture shows Pseudomonas and Enterococcus. The patient is allergic to penicillin and vancomycin. The patient will be started on meropenem. UTI/cystitis -Order urine culture -Reviewed previous urine culture which is positive for Pseudomonas aeruginosa and Enterococcus resistant to fluoroquinolones -Allergic to penicillin and vancomycin -Started meropenem -Monitor culture -Monitor vitals Pending urine culture Constipation CT abdomen pelvis:1. Thickened wall of the urinary bladder with enhancement of the mucosa suggestive of cystitis. Infiltration cannot be excluded. Further evaluation advised.2. Sliding hiatus hernia.3. Bilateral small renal cysts.4. Dilated CBD. 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 p.o. -Euvolemia -Goal 6-8 meq/l in 24 hr period -Urine Na pending -urine osmolarity pending -no evidence of a pulmonary disease or cancer or medication Code : full code DVT prophylaxis: Lovenox 40 subcutaneous daily Subjective Date/time seen: 06/01/24 13:03 Interval history: White blood cell is trending down. Patient still has suprapubic pain, dysuria, denies chest pain headache, focal weakness, shortness breath Exam Narrative: GENERAL: Well-appearing, well-nourished, and in no acute distress. HEAD: Normocephalic, atraumatic. EYES: PERRLA and EOMI. ENT: Nares clear, no rhinorrhea or epistaxis. Mucous membranes moist. NECK: Supple. CHEST: Clear to auscultation. No respiratory distress. HEART: Regular rate and rhythm. No murmur heard. Normal peripheral pulses. ABDOMEN: Soft, diffuse mild tenderness left lower quadrant,, nondistended, normal active bowel sounds. EXTREMITIES: Normal range of motion. No edema. SKIN: Warm, dry, no rash. NEURO: No focal deficits. Alert and oriented x3. PSYCH: Normal mood and affect. Objective Data Vital Signs Vital Signs: Vital Signs - 24 hr 05/31/24 15:34 05/31/24 15:59 05/31/24 16:00 Temperature 98.6 F Pulse Rate 107 H 92 90 Respiratory Rate 22 H 23 H 20 Blood Pressure 153/76 H Pulse Oximetry 100 97 98 Oxygen Delivery Room Air 05/31/24 16:15 05/31/24 16:30 05/31/24 16:45 Temperature Pulse Rate 85 89 83 Respiratory Rate 16 14 18 Blood Pressure Pulse Oximetry 99 97 100 Oxygen Delivery 05/31/24 17:00 05/31/24 17:15 05/31/24 17:30 Temperature Pulse Rate 92 89 84 Respiratory Rate 17 16 16 Blood Pressure 111/48 L Pulse Oximetry 99 99 97 Oxygen Delivery 05/31/24 17:31 05/31/24 17:31 05/31/24 17:32 Temperature Pulse Rate 82 82 82 Respiratory Rate 16 16 14 Blood Pressure 117/59 L 117/59 L Pulse Oximetry 100 97 96 Oxygen Delivery 05/31/24 17:45 05/31/24 17:46 05/31/24 18:15 Temperature Pulse Rate 80 93 81 Respiratory Rate 14 14 15 Blood Pressure 115/67 Pulse Oximetry 96 97 Oxygen Delivery 05/31/24 18:16 05/31/24 18:30 05/31/24 18:31 Temperature Pulse Rate 80 84 84 Respiratory Rate 13 18 18 Blood Pressure 122/65 131/56 L Pulse Oximetry Oxygen Delivery 05/31/24 18:45 05/31/24 18:46 05/31/24 21:00 Temperature Pulse Rate 84 83 Respiratory Rate 18 17 Blood Pressure 146/74 H Pulse Oximetry Oxygen Delivery Room Air 05/31/24 21:35 06/01/24 06:00 06/01/24 08:00 Temperature 98.2 F 97.4 F L Pulse Rate 93 95 Respiratory Rate 16 18 Blood Pressure 111/63 138/72 Pulse Oximetry 94 96 Oxygen Delivery Room Air Intake/Output Intake/Output: Intake & Output 05/29/24 05/30/24 05/31/24 06/01/24 23:59 23:59 23:59 23:59 Intake Total 100 720 Output Total 1000 Balance 100 -280 Meds/Results Medications: Active Medications Generic Name Dose Route Start Last Admin Trade Name Freq PRN Reason Stop Dose Admin Acetaminophen 650 mg 05/31/24 19:12 05/31/24 21:26 Acetaminophen 325 Mg Tablet PO 650 mg Q4H PRN Administration Mild Pain (1-3) or Fever Hydrocodone Bitart/Acetaminophen 1 tab 06/01/24 04:15 06/01/24 05:01 Hydrocodone/Acetaminophen (*Crx) 5-325 Mg Tablet PO 1 tab Q6H PRN Administration Pain Rated 4-6 Enoxaparin Sodium 40 mg 06/01/24 09:00 06/01/24 08:57 Enoxaparin 40 Mg/0.4 Ml Syringe SUB-Q 40 mg DAILY JENNIFER Administration Meropenem 1 gm in 100 mls @ 200 mls/hr 06/01/24 06:00 06/01/24 05:04 IVPB 200 mls/hr Q8H JENNIFER Administration Ondansetron HCl 4 mg 05/31/24 19:12 Ondansetron Inj 4 Mg/2 Ml Vial IV PUSH Q4H PRN Nausea Polyethylene Glycol 17 gm 06/01/24 09:00 06/01/24 08:56 Polyethylene Glycol 3350 17 Gm Powd.Pack PO 17 gm QAM JENNIFER Administration Saccharomyces Boulardii 250 mg 05/31/24 20:10 06/01/24 08:57 Saccharomyces Boulardii 250 Mg Capsule PO 250 mg TID JENNIFER Administration Radiology Results: ITS Impressions Abdomen/Pelvis CT 05/31/24 18:48 IMPRESSION: 1. Thickened wall of the urinary bladder with enhancement of the mucosa suggestive of cystitis. Infiltration cannot be excluded. Further evaluation advised. 2. Sliding hiatus hernia. 3. Bilateral small renal cysts. 4. Dilated CBD. Labs Labs: Laboratory Results - last 24 hr 05/31/24 05/31/24 05/31/24 16:06 16:35 23:05 WBC 14.2 H RBC 4.27 Hgb 13.0 Hct 38.6 MCV 90.4 MCH 30.4 MCHC 33.7 RDW 11.8 Plt Count 218 MPV 10.4 Immature Gran % (Auto) 0.4 Neut % (Auto) 76.1 H Lymph % (Auto) 14.3 L [place] % (Auto) 8.9 H Eos % (Auto) 0.1 Baso % (Auto) 0.2 Lymph # (Auto) 2.03 [place] # (Auto) 1.3 H Eos # (Auto) 0.0 Baso # (Auto) 0.0 Abs Immat Gran (auto) 0.05 H Absolute Neuts (auto) 10.8 H Absolute Nucleated RBC 0.000 Nucleated RBC % 0.0 Sodium 122 L 123 L Potassium 4.5 Chloride 86 L Carbon Dioxide 28 Anion Gap 8 BUN 16 Creatinine 0.83 Estim Creat Clear Calc 55 Estimated GFR > 60 Glucose 203 H Calcium 8.7 Total Bilirubin 1.1 AST 24 ALT 24 Alkaline Phosphatase 98 Total Protein 7.0 Albumin 4.0 Lipase 61 TSH (Reflex) 0.450 L Free T4 1.07 Total T3 0.75 L Urine Color Yellow Urine Appearance Turbid H Urine pH 5.5 Ur Specific [place] 1.018 Urine Protein 2+ H Urine Glucose (UA) 2+ H Urine Ketones Negative Ur Blood (Man) 2+ H Urine Nitrate Positive H Urine Bilirubin Negative Urine Urobilinogen 1.0 Add Ur Microanalysis Reviewed Leukocyte Esterase Rfl 3+ H Urine RBC 21-50 H Urine WBC >100 H Ur Squamous Epith Cells None seen Urine Bacteria 2+ H Urine Casts 0-2 Urine Yeast (Budding) Present H Ur Random Sodium 06/01/24 06/01/24 05:20 07:49 WBC 12.6 H RBC 3.91 L Hgb 12.1 Hct 35.5 L MCV 90.8 MCH 30.9 MCHC 34.1 RDW 11.9 Plt Count 178 MPV 10.4 Immature Gran % (Auto) Neut % (Auto) Lymph % (Auto) [place] % (Auto) Eos % (Auto) Baso % (Auto) Lymph # (Auto) [place] # (Auto) Eos # (Auto) Baso # (Auto) Abs Immat Gran (auto) Absolute Neuts (auto) Absolute Nucleated RBC Nucleated RBC % Sodium 123 L Potassium 4.2 Chloride 89 L Carbon Dioxide 28 Anion Gap 6 BUN 15 Creatinine 0.85 Estim Creat Clear Calc 55 Estimated GFR > 60 Glucose 176 H Calcium 8.1 L Total Bilirubin 1.1 AST 26 ALT 19 Alkaline Phosphatase 92 Total Protein 6.0 L Albumin 3.5 Lipase TSH (Reflex) Free T4 Total T3 Urine Color Urine Appearance Urine pH Ur Specific [place] Urine Protein Urine Glucose (UA) Urine Ketones Ur Blood (Man) Urine Nitrate Urine Bilirubin Urine Urobilinogen Add Ur Microanalysis Leukocyte Esterase Rfl Urine RBC Urine WBC Ur Squamous Epith Cells Urine Bacteria Urine Casts Urine Yeast (Budding) Ur Random Sodium 69
[2024-06-01] MEDS: ONDANSETRON INJ 4 MG/2 ML VIAL IV PUSH (13:04)
[2024-06-01 14:00] VITALS: BP 139/50; PULSE 86; RESP 18; TEMP 36.7; O2SAT 94
[2024-06-01] MEDS: ALPRAZolam (*CRX) 0.25 MG TABLET PO (15:27)
[2024-06-01] MEDS: SODIUM CHLORIDE 1 GM TABLET PO (17:32)
[2024-06-01] MEDS: ACETAMINOPHEN 325 MG TABLET 650 MG PO (20:22)
[2024-06-01 21:30] VITALS: BP 121/60; PULSE 78; RESP 18; TEMP 36.9; O2SAT 96
[2024-06-01] MEDS: traZODone HCL 50 MG TABLET 100 MG PO (23:06)
[2024-06-02 03:50] VITALS: TEMP 36.9
[2024-06-02] MEDS: HYDROcodone/acetaminophen (*CRX) 5-325 MG TABLET 1 TAB PO ×3 (04:47→23:30)
[2024-06-02] MEDS: ALPRAZolam (*CRX) 0.25 MG TABLET PO ×3 (04:49→22:00)
[2024-06-02 05:38] LABS: Toxigenic C. Diff NEGATIVE (NEGATIVE)
[2024-06-02 05:39] VITALS: BP 118/58; PULSE 88; RESP 17; TEMP 36.1; O2SAT 96
[2024-06-02] MEDS: MEROPENEM 1 GM/NS 100 ML 1 GM/100 ML BAG IVPB (06:20)
[2024-06-02 08:30] VITALS: O2SAT 97
[2024-06-02] MEDS: SACCHAROMYCES BOULARDII 250 MG CAPSULE PO ×3 (08:41→17:00)
[2024-06-02] MEDS: ENOXAPARIN 40 MG/0.4 ML SYRINGE SUB-Q (08:41)
[2024-06-02] MEDS: SODIUM CHLORIDE 1 GM TABLET PO ×3 (08:41→17:01)
--- NOTE | 2024-06-02 08:52 | PM.IMPN ---
Progress Note: A&P Assessment and Plan (1) Abdominal pain: Code(s): R10.9 - Unspecified abdominal pain Status: Acute (2) Acute UTI: Code(s): N39.0 - Urinary tract infection, site not specified Status: Acute (3) Hyponatremia: Code(s): E87.1 - Hypo-osmolality and hyponatremia Status: Acute Plan 78-year-old female who presents emergency department with a chief complaint of abdominal pain, nausea, and constipation. hx of knee replacement and shoulder replacement. In the ED, the patient was given Miralax morning, and just prior to transport, the patient had a huge bowel explosive bowel movement. the patient was also found UTI, and the previous urine culture shows Pseudomonas and Enterococcus. The patient is allergic to penicillin and vancomycin. The patient will be started on meropenem. UTI/cystitis -Order urine culture -Reviewed previous urine culture which is positive for Pseudomonas aeruginosa and Enterococcus resistant to fluoroquinolones -Allergic to penicillin and vancomycin Gram-negative bacilli isolated from urine culture Continue meropenem Constipation CT abdomen pelvis:1. Thickened wall of the urinary bladder with enhancement of the mucosa suggestive of cystitis. Infiltration cannot be excluded. Further evaluation advised.2. Sliding hiatus hernia.3. Bilateral small renal cysts.4. Dilated CBD. 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 p.o. sodium 131 today Code : full code DVT prophylaxis: Lovenox 40 subcutaneous daily Subjective Date/time seen: 06/02/24 08:52 Interval history: White blood cell is trending down. Patient denies suprapubic pain, dysuria today , denies chest pain headache, focal weakness, shortness breath Exam Narrative: GENERAL: Well-appearing, well-nourished, and in no acute distress. HEAD: Normocephalic, atraumatic. EYES: PERRLA and EOMI. ENT: Nares clear, no rhinorrhea or epistaxis. Mucous membranes moist. NECK: Supple. CHEST: Clear to auscultation. No respiratory distress. HEART: Regular rate and rhythm. No murmur heard. Normal peripheral pulses. ABDOMEN: Soft, diffuse mild tenderness left lower quadrant,, nondistended, normal active bowel sounds. EXTREMITIES: Normal range of motion. No edema. SKIN: Warm, dry, no rash. NEURO: No focal deficits. Alert and oriented x3. PSYCH: Normal mood and affect. Objective Data Vital Signs Vital Signs: Vital Signs - 24 hr 06/01/24 14:00 06/01/24 20:20 06/01/24 21:30 Temperature 98.0 F 98.5 F Pulse Rate 86 78 Respiratory Rate 18 18 Blood Pressure 139/50 L 121/60 Pulse Oximetry 94 96 Oxygen Delivery Room Air 06/02/24 03:50 06/02/24 05:39 06/02/24 08:00 Temperature 98.4 F 96.9 F L Pulse Rate 88 Respiratory Rate 17 Blood Pressure 118/58 L Pulse Oximetry 96 Oxygen Delivery Room Air 06/02/24 08:30 Temperature Pulse Rate Respiratory Rate Blood Pressure Pulse Oximetry 97 Oxygen Delivery Room Air Intake/Output Intake/Output: Intake & Output 05/30/24 05/31/24 06/01/24 06/02/24 23:59 23:59 23:59 23:59 Intake Total 100 1020 100 Output Total 1000 Balance 100 20 100 Meds/Results Medications: Active Medications Generic Name Dose Route Start Last Admin Trade Name Freq PRN Reason Stop Dose Admin Acetaminophen 650 mg 05/31/24 19:12 06/01/24 20:22 Acetaminophen 325 Mg Tablet PO 650 mg Q4H PRN Administration Mild Pain (1-3) or Fever Hydrocodone Bitart/Acetaminophen 1 tab 06/01/24 04:15 06/02/24 04:47 Hydrocodone/Acetaminophen (*Crx) 5-325 Mg Tablet PO 1 tab Q6H PRN Administration Pain Rated 4-6 Alprazolam 0.25 mg 06/01/24 14:58 06/02/24 04:49 Alprazolam (*Crx) 0.25 Mg Tablet PO 0.25 mg Q8HR PRN Administration Anxiety Enoxaparin Sodium 40 mg 06/01/24 09:00 06/02/24 08:41 Enoxaparin 40 Mg/0.4 Ml Syringe SUB-Q 40 mg DAILY JENNIFER Administration Meropenem 1 gm in 100 mls @ 200 mls/hr 06/01/24 06:00 06/02/24 06:50 IVPB Infused Q8H JENNIFER Infusion Ondansetron HCl 4 mg 05/31/24 19:12 06/01/24 13:04 Ondansetron Inj 4 Mg/2 Ml Vial IV PUSH 4 mg Q4H PRN Administration Nausea Polyethylene Glycol 17 gm 06/01/24 09:00 06/02/24 08:42 Polyethylene Glycol 3350 17 Gm Powd.Pack PO Not Given QAM JENNIFER Saccharomyces Boulardii 250 mg 05/31/24 20:10 06/02/24 08:41 Saccharomyces Boulardii 250 Mg Capsule PO 250 mg TID JENNIFER Administration Sodium Chloride 1 gm 06/01/24 17:30 06/02/24 08:41 Sodium Chloride 1 Gm Tablet PO 1 gm TID JENNIFER Administration Trazodone HCl 100 mg 06/01/24 22:20 06/01/24 23:06 Trazodone Hcl 50 Mg Tablet PO 100 mg HS JENNIFER Administration Radiology Results: ITS Impressions Abdomen/Pelvis CT 05/31/24 18:48 IMPRESSION: 1. Thickened wall of the urinary bladder with enhancement of the mucosa suggestive of cystitis. Infiltration cannot be excluded. Further evaluation advised. 2. Sliding hiatus hernia. 3. Bilateral small renal cysts. 4. Dilated CBD. Labs Labs: Laboratory Results - last 24 hr 06/01/24 06/02/24 07:49 04:37 Ur Random Sodium 69 C. difficile (PCR) Negative
[2024-06-02 09:31] LABS: Basophils Absolute Auto 0.1 K/mm3 (0.0-0.1); Basophils Percent Auto 0.6 % (0.2-1.2); Eosinophils Absolute Auto 0.2 K/mm3 (0-0.3); Eosinophils Percent Auto 1.5 % (0-4.4); Hematocrit 39.6 % (37.0-47.0); Hemoglobin 13.2 g/dL (12.0-15.0); Immature Granulocyte Absolute 0.09 K/mm3 (0.00-0.031); Immature Granulocyte Percent A 0.8 % (0-0.5); Lymphocytes Absolute Auto 1.89 K/mm3 (0.9-3.2); Lymphocytes Percent Auto 17.3 % (18.3-44.2); Mean Corpuscular HGB Conc 33.3 g/dl (32-36); Mean Corpuscular Hemoglobin 31.1 pg (26-34); Mean Corpuscular Volume 93.4 fl (80-100); Mean Platelet Volume 10.5 fl (7.4-10.4); Monocytes Absolute Auto 1.1 K/mm3 (0.1-0.6); Monocytes Percent Auto 9.9 % (2.6-8.5); Neutrophils Absolute Auto 7.6 K/mm3 (1.3-6.7); Neutrophils Percent Auto 69.9 % (45.5-73.1); Platelet Count Result 188 k/mm3 (150-375); Red Blood Count 4.24 M/mm3 (4.2-5.4); Red Cell Distribution Width 11.9 % (11.5-14.5); White Blood Count 10.9 K/mm3 (4.5-10.0)
[2024-06-02 09:39] LABS: Anion Gap 9 mmol/L (4-12); Blood Urea Nitrogen 11 mg/dL (7-17); Calcium 8.4 mg/dL (8.4-10.2); Carbon Dioxide 31 mmol/L (22-30); Chloride 91 mmol/L (98-107); Estimated CRCL calculation 51 ml/min; Estimated Glomerular Filt Rate 60; Glucose 252 mg/dL (65-110); Potassium 3.8 mmol/L (3.4-5.0); Sodium 131 mmol/L (137-145)
[2024-06-02] MEDS: CEFDINIR 300 MG CAPSULE PO ×2 (12:58→21:59)
[2024-06-02] MEDS: ACETAMINOPHEN 325 MG TABLET 650 MG PO (12:58)
[2024-06-02 13:01] VITALS: BP 111/51; PULSE 93; RESP 18; TEMP 36.7; O2SAT 97
[2024-06-02] MEDS: ONDANSETRON INJ 4 MG/2 ML VIAL IV PUSH (17:01)
[2024-06-02 21:51] VITALS: PULSE 85; RESP 18; TEMP 36.5; O2SAT 95
[2024-06-02] MEDS: traZODone HCL 50 MG TABLET 100 MG PO (21:59)
[2024-06-03 05:36] LABS: Basophils Absolute Auto 0.1 K/mm3 (0.0-0.1); Eosinophils Absolute Auto 0.3 K/mm3 (0-0.3); Eosinophils Percent Auto 3.7 % (0-4.4); Hematocrit 36.6 % (37.0-47.0); Immature Granulocyte Absolute 0.04 K/mm3 (0.00-0.031); Immature Granulocyte Percent A 0.5 % (0-0.5); Lymphocytes Absolute Auto 2.79 K/mm3 (0.9-3.2); Lymphocytes Percent Auto 32.3 % (18.3-44.2); Mean Corpuscular HGB Conc 32.8 g/dl (32-36); Mean Corpuscular Hemoglobin 30.8 pg (26-34); Mean Corpuscular Volume 94.1 fl (80-100); Mean Platelet Volume 10.7 fl (7.4-10.4); Monocytes Absolute Auto 0.8 K/mm3 (0.1-0.6); Monocytes Percent Auto 9.1 % (2.6-8.5); Neutrophils Absolute Auto 4.6 K/mm3 (1.3-6.7); Neutrophils Percent Auto 53.4 % (45.5-73.1); Platelet Count Result 165 k/mm3 (150-375); Red Blood Count 3.89 M/mm3 (4.2-5.4); White Blood Count 8.7 K/mm3 (4.5-10.0)
[2024-06-03 05:42] LABS: Anion Gap 5 mmol/L (4-12); Blood Urea Nitrogen 12 mg/dL (7-17); Calcium 8.2 mg/dL (8.4-10.2); Carbon Dioxide 30 mmol/L (22-30); Chloride 96 mmol/L (98-107); Estimated CRCL calculation 55 ml/min; Estimated Glomerular Filt Rate > 60; Glucose 116 mg/dL (65-110); Potassium 3.5 mmol/L (3.4-5.0); Sodium 131 mmol/L (137-145)
[2024-06-03 06:00] VITALS: BP 131/51; PULSE 81; RESP 18; TEMP 36.4; O2SAT 98
[2024-06-03 08:50] VITALS: PULSE 100; O2SAT 94
[2024-06-03] MEDS: HYDROcodone/acetaminophen (*CRX) 5-325 MG TABLET 1 TAB PO ×2 (09:44→18:31)
[2024-06-03] MEDS: ENOXAPARIN 40 MG/0.4 ML SYRINGE SUB-Q (09:47)
[2024-06-03] MEDS: SACCHAROMYCES BOULARDII 250 MG CAPSULE PO ×3 (09:48→18:29)
[2024-06-03] MEDS: SODIUM CHLORIDE 1 GM TABLET PO ×3 (09:48→18:29)
[2024-06-03] MEDS: CEFDINIR 300 MG CAPSULE PO ×2 (09:48→21:22)
[2024-06-03 12:03] LABS: Osmolality, Urine 286 mOsm/kg (50-1200)
--- NOTE | 2024-06-03 13:51 | PCPTNOTE ---
PT was attempted and pt refused stating she is nauseated and was upset about her fluid restrictions. Discussed pts concerns with Adilia(RN) and she stated she would address the pt and Dr. Dolan per POC
[2024-06-03 14:00] VITALS: BP 108/32; PULSE 100; RESP 18; TEMP 36.3; O2SAT 94
--- NOTE | 2024-06-03 14:03 | PM.IMPN ---
Progress Note: A&P Assessment and Plan (1) Abdominal pain: Code(s): R10.9 - Unspecified abdominal pain Status: Acute (2) Acute UTI: Code(s): N39.0 - Urinary tract infection, site not specified Status: Acute (3) Hyponatremia: Code(s): E87.1 - Hypo-osmolality and hyponatremia Status: Acute Plan 78-year-old female who presents emergency department with a chief complaint of abdominal pain, nausea, and constipation. hx of knee replacement and shoulder replacement. In the ED, the patient was given Miralax morning, and just prior to transport, the patient had a huge bowel explosive bowel movement. the patient was also found UTI, and the previous urine culture shows Pseudomonas and Enterococcus. The patient is allergic to penicillin and vancomycin. The patient will be started on meropenem. # UTI/cystitis -Order urine culture -Reviewed previous urine culture which is positive for Pseudomonas aeruginosa and Enterococcus resistant to fluoroquinolones -Allergic to penicillin and vancomycin. Was started on meropenem Urine culture growing Klebsiella. Switched to cefdinir # Constipation CT abdomen pelvis:1. Thickened wall of the urinary bladder with enhancement of the mucosa suggestive of cystitis. Infiltration cannot be excluded. Further evaluation advised.2. Sliding hiatus hernia.3. Bilateral small renal cysts.4. Dilated CBD. 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 p.o. Sodium stable # Code : full code # DVT prophylaxis: Lovenox 40 subcutaneous daily Subjective Date/time seen: 06/03/24 14:03 Interval history: Feels overall better. Labs reviewed. Review of Systems Review of Systems: All systems reviewed & are unremarkable except as noted in HPI and below Exam Narrative: GENERAL: Well-appearing, well-nourished, and in no acute distress. HEAD: Normocephalic, atraumatic. EYES: PERRLA and EOMI. ENT: Nares clear, no rhinorrhea or epistaxis. Mucous membranes moist. NECK: Supple. CHEST: Clear to auscultation. No respiratory distress. HEART: Regular rate and rhythm. No murmur heard. Normal peripheral pulses. ABDOMEN: Soft, nontender, nondistended, normal active bowel sounds. EXTREMITIES: Normal range of motion. No edema. SKIN: Warm, dry, no rash. NEURO: No focal deficits. Alert and oriented x3. PSYCH: Normal mood and affect. Objective Data Vital Signs Vital Signs: Vital Signs - 24 hr 06/02/24 21:45 06/02/24 21:51 06/03/24 06:00 Temperature 97.7 F 97.5 F L Pulse Rate 85 81 Respiratory Rate 18 18 Blood Pressure 131/51 L Pulse Oximetry 95 98 Oxygen Delivery Room Air Intake/Output Intake/Output: Intake & Output 05/31/24 06/01/24 06/02/24 06/03/24 23:59 23:59 23:59 23:59 Intake Total 100 1020 700 260 Output Total 1000 Balance 100 20 700 260 Meds/Results Medications: Active Medications Generic Name Dose Route Start Last Admin Trade Name Freq PRN Reason Stop Dose Admin Acetaminophen 650 mg 05/31/24 19:12 06/02/24 12:58 Acetaminophen 325 Mg Tablet PO 650 mg Q4H PRN Administration Mild Pain (1-3) or Fever Hydrocodone Bitart/Acetaminophen 1 tab 06/01/24 04:15 06/03/24 09:44 Hydrocodone/Acetaminophen (*Crx) 5-325 Mg Tablet PO 1 tab Q6H PRN Administration Pain Rated 4-6 Alprazolam 0.25 mg 06/01/24 14:58 06/02/24 22:00 Alprazolam (*Crx) 0.25 Mg Tablet PO 0.25 mg Q8HR PRN Administration Anxiety Cefdinir 300 mg 06/02/24 12:25 06/03/24 09:48 Cefdinir 300 Mg Capsule PO 06/07/24 09:01 300 mg Q12HR JENNIFER Administration Enoxaparin Sodium 40 mg 06/01/24 09:00 06/03/24 09:47 Enoxaparin 40 Mg/0.4 Ml Syringe SUB-Q 40 mg DAILY JENNIFER Administration Ondansetron HCl 4 mg 05/31/24 19:12 06/02/24 17:01 Ondansetron Inj 4 Mg/2 Ml Vial IV PUSH 4 mg Q4H PRN Administration Nausea Polyethylene Glycol 17 gm 06/01/24 09:00 06/03/24 09:42 Polyethylene Glycol 3350 17 Gm Powd.Pack PO Not Given QAM JENNIFER Saccharomyces Boulardii 250 mg 05/31/24 20:10 06/03/24 12:52 Saccharomyces Boulardii 250 Mg Capsule PO 250 mg TID JENNIFER Administration Sodium Chloride 1 gm 06/01/24 17:30 06/03/24 12:52 Sodium Chloride 1 Gm Tablet PO 1 gm TID JENNIFER Administration Trazodone HCl 100 mg 06/01/24 22:20 06/02/24 21:59 Trazodone Hcl 50 Mg Tablet PO 100 mg HS JENNIFER Administration Radiology Results: ITS Impressions Abdomen/Pelvis CT 05/31/24 18:48 IMPRESSION: 1. Thickened wall of the urinary bladder with enhancement of the mucosa suggestive of cystitis. Infiltration cannot be excluded. Further evaluation advised. 2. Sliding hiatus hernia. 3. Bilateral small renal cysts. 4. Dilated CBD. Labs Labs: Laboratory Results - last 24 hr 06/01/24 06/03/24 07:50 04:37 WBC 8.7 RBC 3.89 L Hgb 12.0 Hct 36.6 L MCV 94.1 MCH 30.8 MCHC 32.8 RDW 12.0 Plt Count 165 MPV 10.7 H Immature Gran % (Auto) 0.5 Neut % (Auto) 53.4 Lymph % (Auto) 32.3 [place] % (Auto) 9.1 H Eos % (Auto) 3.7 Baso % (Auto) 1.0 Lymph # (Auto) 2.79 [place] # (Auto) 0.8 H Eos # (Auto) 0.3 Baso # (Auto) 0.1 Abs Immat Gran (auto) 0.04 H Absolute Neuts (auto) 4.6 Absolute Nucleated RBC 0.000 Nucleated RBC % 0.0 Sodium 131 L Potassium 3.5 Chloride 96 L Carbon Dioxide 30 Anion Gap 5 BUN 12 Creatinine 0.85 Estim Creat Clear Calc 55 Estimated GFR > 60 Glucose 116 H Calcium 8.2 L Urine Osmolality 286
[2024-06-03] MEDS: GABAPENTIN 300 MG CAPSULE PO ×2 (14:29→21:22)
[2024-06-03] MEDS: traZODone HCL 50 MG TABLET 100 MG PO (21:23)
[2024-06-03] MEDS: ALPRAZolam (*CRX) 0.25 MG TABLET PO (21:23)
[2024-06-03 22:00] VITALS: BP 116/45; PULSE 85; RESP 16; TEMP 36.5; O2SAT 95
[2024-06-04] MEDS: HYDROcodone/acetaminophen (*CRX) 5-325 MG TABLET 1 TAB PO ×3 (00:48→21:41)
[2024-06-04 05:16] VITALS: BP 110/54; PULSE 69; RESP 18; TEMP 36.2; O2SAT 97
[2024-06-04 06:00] LABS: Basophils Absolute Auto 0.1 K/mm3 (0.0-0.1); Basophils Percent Auto 1.2 % (0.2-1.2); Eosinophils Absolute Auto 0.4 K/mm3 (0-0.3); Eosinophils Percent Auto 4.4 % (0-4.4); Hematocrit 36.9 % (37.0-47.0); Hemoglobin 11.7 g/dL (12.0-15.0); Immature Granulocyte Absolute 0.04 K/mm3 (0.00-0.031); Immature Granulocyte Percent A 0.5 % (0-0.5); Lymphocytes Absolute Auto 2.75 K/mm3 (0.9-3.2); Lymphocytes Percent Auto 32.4 % (18.3-44.2); Mean Corpuscular HGB Conc 31.7 g/dl (32-36); Mean Corpuscular Hemoglobin 30.9 pg (26-34); Mean Corpuscular Volume 97.4 fl (80-100); Mean Platelet Volume 10.3 fl (7.4-10.4); Monocytes Absolute Auto 0.7 K/mm3 (0.1-0.6); Monocytes Percent Auto 8.1 % (2.6-8.5); Neutrophils Absolute Auto 4.5 K/mm3 (1.3-6.7); Neutrophils Percent Auto 53.4 % (45.5-73.1); Platelet Count Result 169 k/mm3 (150-375); Red Blood Count 3.79 M/mm3 (4.2-5.4); Red Cell Distribution Width 12.1 % (11.5-14.5); White Blood Count 8.5 K/mm3 (4.5-10.0)
[2024-06-04] MEDS: GABAPENTIN 300 MG CAPSULE PO ×3 (06:12→21:41)
[2024-06-04 06:15] LABS: Alanine Aminotransferase 16 U/L (6-35); Albumin Level 3.4 g/dL (3.5-5.1); Alkaline Phosphatase 72 U/L (38-126); Anion Gap 7 mmol/L (4-12); Aspartate Amino Transferase 22 U/L (14-36); Bilirubin,Total 0.4 mg/dL (0.2-1.3); Blood Urea Nitrogen 17 mg/dL (7-17); Calcium 8.2 mg/dL (8.4-10.2); Carbon Dioxide 27 mmol/L (22-30); Chloride 99 mmol/L (98-107); Estimated CRCL calculation 57 ml/min; Estimated Glomerular Filt Rate > 60; Glucose 121 mg/dL (65-110); Magnesium 2.1 mg/dL (1.6-2.3); Potassium 3.6 mmol/L (3.4-5.0); Sodium 133 mmol/L (137-145)
--- NOTE | 2024-06-04 09:48 | PCOTNOTE ---
Attempted to see patient this am, however patient sleeping soundly at this time.
[2024-06-04] MEDS: ATORVASTATIN 10 MG TABLET PO (09:59)
[2024-06-04] MEDS: CEFDINIR 300 MG CAPSULE PO ×2 (09:59→21:42)
[2024-06-04] MEDS: lisinopriL 10 MG TABLET PO (09:59)
[2024-06-04] MEDS: SACCHAROMYCES BOULARDII 250 MG CAPSULE PO ×3 (09:59→17:07)
[2024-06-04] MEDS: ENOXAPARIN 40 MG/0.4 ML SYRINGE SUB-Q (10:00)
[2024-06-04] MEDS: MELOXICAM 7.5 MG TABLET 15 MG PO (10:00)
[2024-06-04] MEDS: SODIUM CHLORIDE 1 GM TABLET PO ×3 (10:00→17:07)
[2024-06-04] MEDS: BISACODYL 5 MG TABLET EC PO ×2 (10:00→17:07)
[2024-06-04 14:00] VITALS: BP 124/48; PULSE 80; RESP 18; TEMP 36.3; O2SAT 97
--- NOTE | 2024-06-04 14:14 | PM.IMPN ---
Progress Note: A&P Assessment and Plan (1) Abdominal pain: Code(s): R10.9 - Unspecified abdominal pain Status: Acute (2) Acute UTI: Code(s): N39.0 - Urinary tract infection, site not specified Status: Acute (3) Hyponatremia: Code(s): E87.1 - Hypo-osmolality and hyponatremia Status: Acute Plan 78-year-old female who presents emergency department with a chief complaint of abdominal pain, nausea, and constipation. hx of knee replacement and shoulder replacement. In the ED, the patient was given Miralax morning, and just prior to transport, the patient had a huge bowel explosive bowel movement. the patient was also found UTI, and the previous urine culture shows Pseudomonas and Enterococcus. The patient is allergic to penicillin and vancomycin. The patient will be started on meropenem. # UTI/cystitis -Order urine culture -Reviewed previous urine culture which is positive for Pseudomonas aeruginosa and Enterococcus resistant to fluoroquinolones -Allergic to penicillin and vancomycin. Was started on meropenem Urine culture growing Klebsiella. Switched to cefdinir # Constipation CT abdomen pelvis:1. Thickened wall of the urinary bladder with enhancement of the mucosa suggestive of cystitis. Infiltration cannot be excluded. Further evaluation advised.2. Sliding hiatus hernia.3. Bilateral small renal cysts.4. Dilated CBD. 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 p.o. Sodium stable # Code : full code # DVT prophylaxis: Lovenox 40 subcutaneous daily Subjective Date/time seen: 06/04/24 14:14 Interval history: No overnight events. No new complaints. Feeling better. Still weak. Awaiting insurance authorization for rehab placement. Review of Systems Review of Systems: All systems reviewed & are unremarkable except as noted in HPI and below Exam Narrative: GENERAL: Well-appearing, well-nourished, and in no acute distress. HEAD: Normocephalic, atraumatic. EYES: PERRLA and EOMI. ENT: Nares clear, no rhinorrhea or epistaxis. Mucous membranes moist. NECK: Supple. CHEST: Clear to auscultation. No respiratory distress. HEART: Regular rate and rhythm. No murmur heard. Normal peripheral pulses. ABDOMEN: Soft, nontender, nondistended, normal active bowel sounds. EXTREMITIES: Normal range of motion. No edema. SKIN: Warm, dry, no rash. NEURO: No focal deficits. Alert and oriented x3. PSYCH: Normal mood and affect. Objective Data Vital Signs Vital Signs: Vital Signs - 24 hr 06/03/24 21:00 06/03/24 22:00 06/04/24 05:16 Temperature 97.7 F 97.2 F L Pulse Rate 85 69 Respiratory Rate 16 18 Blood Pressure 116/45 L 110/54 L Pulse Oximetry 95 97 Oxygen Delivery Room Air Intake/Output Intake/Output: Intake & Output 06/01/24 06/02/24 06/03/24 06/04/24 23:59 23:59 23:59 23:59 Intake Total 1020 700 500 460 Output Total 1000 Balance 20 700 500 460 Meds/Results Medications: Active Medications Generic Name Dose Route Start Last Admin Trade Name Freq PRN Reason Stop Dose Admin Acetaminophen 650 mg 05/31/24 19:12 06/02/24 12:58 Acetaminophen 325 Mg Tablet PO 650 mg Q4H PRN Administration Mild Pain (1-3) or Fever Hydrocodone Bitart/Acetaminophen 1 tab 06/01/24 04:15 06/04/24 13:48 Hydrocodone/Acetaminophen (*Crx) 5-325 Mg Tablet PO 1 tab Q6H PRN Administration Pain Rated 4-6 Alprazolam 0.25 mg 06/01/24 14:58 06/03/24 21:23 Alprazolam (*Crx) 0.25 Mg Tablet PO 0.25 mg Q8HR PRN Administration Anxiety Atorvastatin Calcium 10 mg 06/04/24 09:00 06/04/24 09:59 Atorvastatin 10 Mg Tablet PO 10 mg DAILY JENNIFER Administration Bisacodyl 5 mg 06/03/24 17:00 06/04/24 10:00 Bisacodyl 5 Mg Tablet Ec PO 5 mg BID JENNIFER Administration Cefdinir 300 mg 06/02/24 12:25 06/04/24 09:59 Cefdinir 300 Mg Capsule PO 06/07/24 09:01 300 mg Q12HR JENNIFER Administration Enoxaparin Sodium 40 mg 06/01/24 09:00 06/04/24 10:00 Enoxaparin 40 Mg/0.4 Ml Syringe SUB-Q 40 mg DAILY JENNIFER Administration Gabapentin 300 mg 06/03/24 14:10 06/04/24 13:47 Gabapentin 300 Mg Capsule PO 300 mg Q8HR JENN[facility]ER Administration Lisinopril 10 mg 06/04/24 09:00 06/04/24 09:59 Lisinopril 10 Mg Tablet PO 10 mg DAILY JENNIFER Administration Meloxicam 15 mg 06/04/24 09:00 06/04/24 10:00 Meloxicam 7.5 Mg Tablet PO 15 mg QAM [facility]ENN[facility] Administration Ondansetron HCl 4 mg 05/31/24 19:12 06/02/24 17:01 Ondansetron Inj 4 Mg/2 Ml Vial IV PUSH 4 mg Q4H PRN Administration Nausea Polyethylene Glycol 17 gm 06/01/24 09:00 06/04/24 10:26 Polyethylene Glycol 3350 17 Gm Powd.Pack PO Not Given QAM JENNIFER Saccharomyces Boulardii 250 mg 05/31/24 20:10 06/04/24 13:47 Saccharomyces Boulardii 250 Mg Capsule PO 250 mg TID JENNIFER Administration Sodium Chloride 1 gm 06/01/24 17:30 06/04/24 13:47 Sodium Chloride 1 Gm Tablet PO 1 gm TID JENNIFER Administration Trazodone HCl 100 mg 06/01/24 22:20 06/03/24 21:23 Trazodone Hcl 50 Mg Tablet PO 100 mg HS JENNIFER Administration Radiology Results: ITS Impressions Abdomen/Pelvis CT 05/31/24 18:48 IMPRESSION: 1. Thickened wall of the urinary bladder with enhancement of the mucosa suggestive of cystitis. Infiltration cannot be excluded. Further evaluation advised. 2. Sliding hiatus hernia. 3. Bilateral small renal cysts. 4. Dilated CBD. Labs Labs: Laboratory Results - last 24 hr 06/04/24 05:41 WBC 8.5 RBC 3.79 L Hgb 11.7 L Hct 36.9 L MCV 97.4 MCH 30.9 MCHC 31.7 L RDW 12.1 Plt Count 169 MPV 10.3 Immature Gran % (Auto) 0.5 Neut % (Auto) 53.4 Lymph % (Auto) 32.4 [place] % (Auto) 8.1 Eos % (Auto) 4.4 Baso % (Auto) 1.2 Lymph # (Auto) 2.75 [place] # (Auto) 0.7 H Eos # (Auto) 0.4 H Baso # (Auto) 0.1 Abs Immat Gran (auto) 0.04 H Absolute Neuts (auto) 4.5 Absolute Nucleated RBC 0.000 Nucleated RBC % 0.0 Sodium 133 L Potassium 3.6 Chloride 99 Carbon Dioxide 27 Anion Gap 7 BUN 17 Creatinine 0.82 Estim Creat Clear Calc 57 Estimated GFR > 60 Glucose 121 H Calcium 8.2 L Magnesium 2.1 Total Bilirubin 0.4 AST 22 ALT 16 Alkaline Phosphatase 72 Total Protein 6.0 L Albumin 3.4 L
[2024-06-04 20:35] VITALS: BP 116/51; PULSE 83; RESP 16; TEMP 36.7; O2SAT 96
[2024-06-04] MEDS: traZODone HCL 50 MG TABLET 100 MG PO (21:40)
[2024-06-04] MEDS: ALPRAZolam (*CRX) 0.25 MG TABLET PO (21:41)
[2024-06-05 06:00] VITALS: BP 108/62; PULSE 62; RESP 14; TEMP 36.5; O2SAT 98
[2024-06-05] MEDS: GABAPENTIN 300 MG CAPSULE PO ×3 (06:25→21:51)
[2024-06-05] MEDS: MELOXICAM 7.5 MG TABLET 15 MG PO (09:57)
[2024-06-05] MEDS: ATORVASTATIN 10 MG TABLET PO (09:58)
[2024-06-05] MEDS: CEFDINIR 300 MG CAPSULE PO ×2 (09:58→21:51)
[2024-06-05] MEDS: lisinopriL 10 MG TABLET PO (09:58)
[2024-06-05] MEDS: SODIUM CHLORIDE 1 GM TABLET PO ×3 (09:58→16:49)
[2024-06-05] MEDS: SACCHAROMYCES BOULARDII 250 MG CAPSULE PO ×3 (09:58→16:49)
[2024-06-05] MEDS: ENOXAPARIN 40 MG/0.4 ML SYRINGE SUB-Q (09:59)
--- NOTE | 2024-06-05 13:06 | P.PNIM_ITS ---
Progress Note: A&P Assessment and Plan (1) Abdominal pain: Code(s): R10.9 - Unspecified abdominal pain Status: Acute (2) Acute UTI: Code(s): N39.0 - Urinary tract infection, site not specified Status: Acute (3) Hyponatremia: Code(s): E87.1 - Hypo-osmolality and hyponatremia Status: Acute Plan 78-year-old female who presents emergency department with a chief complaint of abdominal pain, nausea, and constipation. hx of knee replacement and shoulder replacement. In the ED, the patient was given Miralax morning, and just prior to transport, the patient had a huge bowel explosive bowel movement. the patient was also found UTI, and the previous urine culture shows Pseudomonas and Enterococcus. The patient is allergic to penicillin and vancomycin. The patient will be started on meropenem. # UTI/cystitis -Order urine culture -Reviewed previous urine culture which is positive for Pseudomonas aeruginosa and Enterococcus resistant to fluoroquinolones -Allergic to penicillin and vancomycin. Was started on meropenem Urine culture growing Klebsiella. Switched to cefdinir # Constipation CT abdomen pelvis:1. Thickened wall of the urinary bladder with enhancement of the mucosa suggestive of cystitis. Infiltration cannot be excluded. Further evaluation advised.2. Sliding hiatus hernia.3. Bilateral small renal cysts.4. Dilated CBD. 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 p.o. Sodium stable # Code : full code # DVT prophylaxis: Lovenox 40 subcutaneous daily Subjective Date/time seen: 06/05/24 13:06 Interval history: No overnight events. Wants to go home however needs to go to rehab prior to return to assisted living. Review of Systems Review of Systems: All systems reviewed & are unremarkable except as noted in HPI and below Exam Narrative: GENERAL: Well-appearing, well-nourished, and in no acute distress. HEAD: Normocephalic, atraumatic. EYES: PERRLA and EOMI. ENT: Nares clear, no rhinorrhea or epistaxis. Mucous membranes moist. NECK: Supple. CHEST: Clear to auscultation. No respiratory distress. HEART: Regular rate and rhythm. No murmur heard. Normal peripheral pulses. ABDOMEN: Soft, nontender, nondistended, normal active bowel sounds. EXTREMITIES: Normal range of motion. No edema. SKIN: Warm, dry, no rash. NEURO: No focal deficits. Alert and oriented x3. PSYCH: Normal mood and affect. Objective Data Vital Signs Vital Signs: Vital Signs - 24 hr 06/04/24 14:00 06/04/24 20:00 06/04/24 20:35 Temperature 97.3 F L 98.1 F Pulse Rate 80 83 Respiratory Rate 18 16 Blood Pressure 124/48 L 116/51 L Pulse Oximetry 97 96 Oxygen Delivery Room Air 06/05/24 06:00 06/05/24 10:00 Temperature 97.7 F Pulse Rate 62 Respiratory Rate 14 Blood Pressure 108/62 Pulse Oximetry 98 Oxygen Delivery Room Air Intake/Output Intake/Output: Intake & Output 06/02/24 06/03/24 06/04/24 06/05/24 23:59 23:59 23:59 23:59 Intake Total 700 500 840 440 Balance 700 500 840 440 Meds/Results Medications: Active Medications Generic Name Dose Route Start Last Admin Trade Name Freq PRN Reason Stop Dose Admin Acetaminophen 650 mg 05/31/24 19:12 06/02/24 12:58 Acetaminophen 325 Mg Tablet PO 650 mg Q4H PRN Administration Mild Pain (1-3) or Fever Hydrocodone Bitart/Acetaminophen 1 tab 06/01/24 04:15 06/04/24 21:41 Hydrocodone/Acetaminophen (*Crx) 5-325 Mg Tablet PO 1 tab Q6H PRN Administration Pain Rated 4-6 Alprazolam 0.25 mg 06/01/24 14:58 06/04/24 21:41 Alprazolam (*Crx) 0.25 Mg Tablet PO 0.25 mg Q8HR PRN Administration Anxiety Atorvastatin Calcium 10 mg 06/04/24 09:00 06/05/24 09:58 Atorvastatin 10 Mg Tablet PO 10 mg DAILY JENNIFER Administration Bisacodyl 5 mg 06/03/24 17:00 06/05/24 09:59 Bisacodyl 5 Mg Tablet Ec PO Not Given BID JENNIFER Cefdinir 300 mg 06/02/24 12:25 06/05/24 09:58 Cefdinir 300 Mg Capsule PO 06/07/24 09:01 300 mg Q12HR JENNIFER Administration Enoxaparin Sodium 40 mg 06/01/24 09:00 06/05/24 09:59 Enoxaparin 40 Mg/0.4 Ml Syringe SUB-Q 40 mg DAILY JENNIFER Administration Gabapentin 300 mg 06/03/24 14:10 06/05/24 06:25 Gabapentin 300 Mg Capsule PO 300 mg Q8HR JENNIFER Administration Lisinopril 10 mg 06/04/24 09:00 06/05/24 09:58 Lisinopril 10 Mg Tablet PO 10 mg DAILY JENNIFER Administration Meloxicam 15 mg 06/04/24 09:00 06/05/24 09:57 Meloxicam 7.5 Mg Tablet PO 15 mg QAM [facility] Administration Ondansetron HCl 4 mg 05/31/24 19:12 06/02/24 17:01 Ondansetron Inj 4 Mg/2 Ml Vial IV PUSH 4 mg Q4H PRN Administration Nausea Polyethylene Glycol 17 gm 06/01/24 09:00 06/05/24 09:58 Polyethylene Glycol 3350 17 Gm Powd.Pack PO Not Given QAM [facility] Saccharomyces Boulardii 250 mg 05/31/24 20:10 06/05/24 12:31 Saccharomyces Boulardii 250 Mg Capsule PO 250 mg TID [facility] Administration Sodium Chloride 1 gm 06/01/24 17:30 06/05/24 12:31 Sodium Chloride 1 Gm Tablet PO 1 gm TID JENNIFER Administration Trazodone HCl 100 mg 06/01/24 22:20 06/04/24 21:40 Trazodone Hcl 50 Mg Tablet PO 100 mg HS JENNIFER Administration Radiology Results: ITS Impressions Abdomen/Pelvis CT 05/31/24 18:48 IMPRESSION: 1. Thickened wall of the urinary bladder with enhancement of the mucosa suggestive of cystitis. Infiltration cannot be excluded. Further evaluation advised. 2. Sliding hiatus hernia. 3. Bilateral small renal cysts. 4. Dilated CBD.
[2024-06-05 14:00] VITALS: BP 138/44; PULSE 91; RESP 16; TEMP 36.2; O2SAT 96
[2024-06-05] MEDS: traZODone HCL 50 MG TABLET 100 MG PO (21:51)
[2024-06-05] MEDS: LOPERAMIDE HCL 2 MG CAPSULE 4 MG PO (21:51)
[2024-06-05] MEDS: ALPRAZolam (*CRX) 0.25 MG TABLET PO (21:51)
[2024-06-05 22:00] VITALS: BP 101/52; PULSE 85; RESP 18; TEMP 36.9; O2SAT 96
[2024-06-06] MEDS: SODIUM CHLORIDE 0.9% IV 1,000 ML 75 ML IV CONT (00:14)
[2024-06-06 00:34] LABS: Anion Gap 6 mmol/L (4-12); Blood Urea Nitrogen 23 mg/dL (7-17); Carbon Dioxide 28 mmol/L (22-30); Chloride 101 mmol/L (98-107); Estimated CRCL calculation 52 ml/min; Estimated Glomerular Filt Rate > 60; Glucose 165 mg/dL (65-110); Phosphorus 3.2 mg/dL (2.5-4.5); Potassium 3.5 mmol/L (3.4-5.0); Sodium 135 mmol/L (137-145)
[2024-06-06] MEDS: GABAPENTIN 300 MG CAPSULE PO ×3 (05:38→21:05)
[2024-06-06 06:00] VITALS: BP 106/53; PULSE 62; RESP 18; TEMP 35.9; O2SAT 99
--- NOTE | 2024-06-06 09:24 | PCPTNOTE ---
Patient refused treatment this session due to not feeling well. RN aware.
[2024-06-06] MEDS: CEFDINIR 300 MG CAPSULE PO ×2 (09:39→21:05)
[2024-06-06] MEDS: MELOXICAM 7.5 MG TABLET 15 MG PO (09:39)
[2024-06-06] MEDS: ATORVASTATIN 10 MG TABLET PO (09:39)
[2024-06-06] MEDS: lisinopriL 10 MG TABLET PO (09:39)
[2024-06-06] MEDS: SACCHAROMYCES BOULARDII 250 MG CAPSULE PO ×3 (09:39→18:00)
[2024-06-06] MEDS: ENOXAPARIN 40 MG/0.4 ML SYRINGE SUB-Q (09:40)
--- NOTE | 2024-06-06 11:28 | P.PNIM_ITS ---
Progress Note: A&P Assessment and Plan (1) Abdominal pain: Code(s): R10.9 - Unspecified abdominal pain Status: Acute (2) Acute UTI: Code(s): N39.0 - Urinary tract infection, site not specified Status: Acute (3) Hyponatremia: Code(s): E87.1 - Hypo-osmolality and hyponatremia Status: Acute Plan 78-year-old female who presents emergency department with a chief complaint of abdominal pain, nausea, and constipation. hx of knee replacement and shoulder replacement. In the ED, the patient was given Miralax morning, and just prior to transport, the patient had a huge bowel explosive bowel movement. the patient was also found UTI, and the previous urine culture shows Pseudomonas and Enterococcus. The patient is allergic to penicillin and vancomycin. The patient will be started on meropenem. # UTI/cystitis -Order urine culture -Reviewed previous urine culture which is positive for Pseudomonas aeruginosa and Enterococcus resistant to fluoroquinolones -Allergic to penicillin and vancomycin. Was started on meropenem Urine culture growing Klebsiella. Switched to cefdinir # Constipation CT abdomen pelvis:1. Thickened wall of the urinary bladder with enhancement of the mucosa suggestive of cystitis. Infiltration cannot be excluded. Further evaluation advised.2. Sliding hiatus hernia.3. Bilateral small renal cysts.4. Dilated CBD. 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 p.o. Sodium stable # Code : full code # DVT prophylaxis: Lovenox 40 subcutaneous daily Subjective Date/time seen: 06/06/24 11:28 Interval history: No overnight events no new complaints. Awaiting placement Review of Systems Review of Systems: All systems reviewed & are unremarkable except as noted in HPI and below Exam Narrative: GENERAL: Well-appearing, well-nourished, and in no acute distress. HEAD: Normocephalic, atraumatic. EYES: PERRLA and EOMI. ENT: Nares clear, no rhinorrhea or epistaxis. Mucous membranes moist. NECK: Supple. CHEST: Clear to auscultation. No respiratory distress. HEART: Regular rate and rhythm. No murmur heard. Normal peripheral pulses. ABDOMEN: Soft, nontender, nondistended, normal active bowel sounds. EXTREMITIES: Normal range of motion. No edema. SKIN: Warm, dry, no rash. NEURO: No focal deficits. Alert and oriented x3. PSYCH: Normal mood and affect. Objective Data Vital Signs Vital Signs: Vital Signs - 24 hr 06/05/24 14:00 06/05/24 20:00 06/05/24 22:00 Temperature 97.2 F L 98.4 F Pulse Rate 91 85 Respiratory Rate 16 18 Blood Pressure 138/44 L 101/52 L Pulse Oximetry 96 96 Oxygen Delivery Room Air 06/06/24 06:00 06/06/24 09:40 Temperature 96.7 F L Pulse Rate 62 Respiratory Rate 18 Blood Pressure 106/53 L Pulse Oximetry 99 Oxygen Delivery Room Air Intake/Output Intake/Output: Intake & Output 06/03/24 06/04/24 06/05/24 06/06/24 23:59 23:59 23:59 23:59 Intake Total 500 840 920 360 Balance 500 840 920 360 Meds/Results Medications: Active Medications Generic Name Dose Route Start Last Admin Trade Name Freq PRN Reason Stop Dose Admin Acetaminophen 650 mg 05/31/24 19:12 06/02/24 12:58 Acetaminophen 325 Mg Tablet PO 650 mg Q4H PRN Administration Mild Pain (1-3) or Fever Hydrocodone Bitart/Acetaminophen 1 tab 06/01/24 04:15 06/04/24 21:41 Hydrocodone/Acetaminophen (*Crx) 5-325 Mg Tablet PO 1 tab Q6H PRN Administration Pain Rated 4-6 Alprazolam 0.25 mg 06/01/24 14:58 06/05/24 21:51 Alprazolam (*Crx) 0.25 Mg Tablet PO 0.25 mg Q8HR PRN Administration Anxiety Atorvastatin Calcium 10 mg 06/04/24 09:00 06/06/24 09:39 Atorvastatin 10 Mg Tablet PO 10 mg DAILY JENNIFER Administration Bisacodyl 5 mg 06/03/24 17:00 06/05/24 16:49 Bisacodyl 5 Mg Tablet Ec PO Not Given BID JENNIFER Cefdinir 300 mg 06/02/24 12:25 06/06/24 09:39 Cefdinir 300 Mg Capsule PO 06/07/24 09:01 300 mg Q12HR JENNIFER Administration Enoxaparin Sodium 40 mg 06/01/24 09:00 06/06/24 09:40 Enoxaparin 40 Mg/0.4 Ml Syringe SUB-Q 40 mg DAILY JENNIFER Administration Gabapentin 300 mg 06/03/24 14:10 06/06/24 05:38 Gabapentin 300 Mg Capsule PO 300 mg Q8HR JENNIFER Administration Sodium Chloride 1,000 mls @ 75 mls/hr 06/05/24 23:20 06/06/24 00:14 Normal Saline Iv IV CONT 75 mls/hr .[id number] JENNIFER Administration Lisinopril 10 mg 06/04/24 09:00 06/06/24 09:39 Lisinopril 10 Mg Tablet PO 10 mg DAILY JENNIFER Administration Loperamide HCl 2 mg 06/05/24 23:22 Loperamide Hcl 2 Mg Capsule PO PRN PRN Diarrhea Meloxicam 15 mg 06/04/24 09:00 06/06/24 09:39 Meloxicam 7.5 Mg Tablet PO 15 mg QAM JENNIFER Administration Ondansetron HCl 4 mg 05/31/24 19:12 06/02/24 17:01 Ondansetron Inj 4 Mg/2 Ml Vial IV PUSH 4 mg Q4H PRN Administration Nausea Polyethylene Glycol 17 gm 06/01/24 09:00 06/05/24 09:58 Polyethylene Glycol 3350 17 Gm Powd.Pack PO Not Given QAM [facility] Saccharomyces Boulardii 250 mg 05/31/24 20:10 06/06/24 09:39 Saccharomyces Boulardii 250 Mg Capsule PO 250 mg TID JENNIFER Administration Sodium Chloride 1 gm 06/01/24 17:30 06/06/24 09:41 Sodium Chloride 1 Gm Tablet PO Not Given TID [facility] Trazodone HCl 100 mg 06/01/24 22:20 06/05/24 21:51 Trazodone Hcl 50 Mg Tablet PO 100 mg HS JENNIFER Administration Radiology Results: ITS Impressions Abdomen/Pelvis CT 05/31/24 18:48 IMPRESSION: 1. Thickened wall of the urinary bladder with enhancement of the mucosa suggestive of cystitis. Infiltration cannot be excluded. Further evaluation advised. 2. Sliding hiatus hernia. 3. Bilateral small renal cysts. 4. Dilated CBD. Labs Labs: Laboratory Results - last 24 hr 06/06/24 00:02 Sodium 135 L Potassium 3.5 Chloride 101 Carbon Dioxide 28 Anion Gap 6 BUN 23 H Creatinine 0.90 Estim Creat Clear Calc 52 Estimated GFR > 60 Glucose 165 H Calcium 8.0 L Phosphorus 3.2 Magnesium 2.0
[2024-06-06] MEDS: HYDROcodone/acetaminophen (*CRX) 5-325 MG TABLET 1 TAB PO (13:06)
[2024-06-06 14:00] VITALS: BP 130/43; PULSE 74; RESP 18; TEMP 37; O2SAT 97
[2024-06-06] MEDS: ALPRAZolam (*CRX) 0.25 MG TABLET PO (21:04)
[2024-06-06] MEDS: LOPERAMIDE HCL 2 MG CAPSULE PO (21:04)
[2024-06-06] MEDS: traZODone HCL 50 MG TABLET 100 MG PO (21:04)
[2024-06-06 21:51] VITALS: BP 138/54; PULSE 78; RESP 18; TEMP 36.7; O2SAT 97
[2024-06-07] MEDS: GABAPENTIN 300 MG CAPSULE PO ×2 (05:29→14:34)
[2024-06-07 06:00] VITALS: BP 133/53; PULSE 72; RESP 18; TEMP 36.6; O2SAT 96
[2024-06-07] MEDS: MELOXICAM 7.5 MG TABLET 15 MG PO (09:15)
[2024-06-07] MEDS: lisinopriL 10 MG TABLET PO (09:16)
[2024-06-07] MEDS: CEFDINIR 300 MG CAPSULE PO (09:16)
[2024-06-07] MEDS: ATORVASTATIN 10 MG TABLET PO (09:16)
[2024-06-07] MEDS: ENOXAPARIN 40 MG/0.4 ML SYRINGE SUB-Q (09:16)
[2024-06-07] MEDS: SACCHAROMYCES BOULARDII 250 MG CAPSULE PO ×3 (09:16→17:34)
--- NOTE | 2024-06-07 13:35 | PC.NURSE ---
On 06/07/24, the student, Maria Del Carmen Malik, provided care and completed [facility] documentation on this patient. I have reviewed the student's documentation and agree with the findings.
--- NOTE | 2024-06-07 14:32 | P.DS_ITS ---
DS: Admitting Diagnosis Discharge Date 06/07/2024 Admitting Diagnosis Weakness DS: Discharge Diagnosis Discharge Diagnosis (1) Abdominal pain: Code(s): R10.9 - Unspecified abdominal pain Status: Acute (2) Acute UTI: Code(s): N39.0 - Urinary tract infection, site not specified Status: Acute (3) Hyponatremia: Code(s): E87.1 - Hypo-osmolality and hyponatremia Status: Acute DS: Summary Hospital Course Hospital Course: 78-year-old female who presents emergency department with a chief complaint of abdominal pain, nausea, and constipation. hx of knee replacement and shoulder replacement. In the ED, the patient was given Miralax morning, and just prior to transport, the patient had a huge bowel explosive bowel movement. the patient was also found UTI, and the previous urine culture shows Pseudomonas and Enterococcus. The patient is allergic to penicillin and vancomycin. The patient was started on meropenem. # UTI/cystitis -Order urine culture -Reviewed previous urine culture which is positive for Pseudomonas aeruginosa and Enterococcus resistant to fluoroquinolones -Allergic to penicillin and vancomycin. Was started on meropenem Urine culture growing Klebsiella. Switched to cefdinir 10 finish the course during hospitalization # Constipation CT abdomen pelvis:1. Thickened wall of the urinary bladder with enhancement of the mucosa suggestive of cystitis. Infiltration cannot be excluded. Further evaluation advised.2. Sliding hiatus hernia.3. Bilateral small renal cysts.4. Dilated CBD. 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 Sodium chloride tablet was tapered off by the time of discharge. Sodium stable and resolved to normal by the time of discharge. Recheck in 1 week to ensure stability. Continue on fluid restriction at discharge. # Code : full code # DVT prophylaxis: Lovenox 40 subcutaneous daily # disposition: Going to rehab Time Spent with Patient Time attestation: Total time spent providing and/or coordinating discharge services: 35 minutes Exam Narrative: GENERAL: Well-appearing, well-nourished, and in no acute distress. HEAD: Normocephalic, atraumatic. EYES: PERRLA and EOMI. ENT: Nares clear, no rhinorrhea or epistaxis. Mucous membranes moist. NECK: Supple. CHEST: Clear to auscultation. No respiratory distress. HEART: Regular rate and rhythm. No murmur heard. Normal peripheral pulses. ABDOMEN: Soft, nontender, nondistended, normal active bowel sounds. EXTREMITIES: Normal range of motion. No edema. SKIN: Warm, dry, no rash. NEURO: No focal deficits. Alert and oriented x3. PSYCH: Normal mood and affect. DS: Data Imaging Radiologist's impression: ITS Impressions Abdomen/Pelvis CT 05/31/24 18:48 IMPRESSION: 1. Thickened wall of the urinary bladder with enhancement of the mucosa suggestive of cystitis. Infiltration cannot be excluded. Further evaluation advised. 2. Sliding hiatus hernia. 3. Bilateral small renal cysts. 4. Dilated CBD. Discharge Plan Discharge Attending physician on discharge: Audi Ewing Discharging Clinician: Audi Ewing Anticipated Discharge Date/Time: 06/07/24 14:36 Patient Disposition: SNF Activity: as tolerated Diet: heart healthy and other - see discharge instructions Discharge Instructions: Fluid restriction 1500 cc per day Recheck BMP in 1 week. Patient Language: Vietnamese Stand Alone Forms: General Discharge Information Follow-up/Referrals: PHYSICIAN NOT ON STAFF,NONSTAFF [Primary Care Provider] - 1 Week Discharge Medications: Continued bisacodyl 5 mg tablet 5 mg PO BID gabapentin 300 mg capsule 300 mg PO TID atorvastatin [Lipitor] 10 mg tablet 10 mg PO DAILY lisinopril 10 mg tablet 10 mg PO DAILY meloxicam 15 mg tablet 15 mg PO DAILY trazodone 100 mg tablet 100 mg PO HS polyethylene glycol 3350 [Miralax] 17 gram/dose powder 17 g PO DAILY PRN (Reason: constipation) hydrocodone-acetaminophen 5-325 mg tablet 1 tablet PO Q6H PRN (Reason: pain (scale score 4-6)) Qty: 20 0RF Other Ambulatory Orders: Basic Metabolic Panel (Routine) Timeframe: 1 Week Location: Determined by Patient Ordered By: Audi Ewing Date of admission: 06/02/24 13:12 Primary Care Provider: PHYSICIAN NOT ON STAFF,NONSTAFF Admitting Provider: Jayant Ma Attending physician on admission: Jayant Ma Condition: Stable
[2024-06-07 14:49] VITALS: BP 130/55; PULSE 76; RESP 24; TEMP 36.6; O2SAT 97
[2024-06-07] MEDS: ACETAMINOPHEN 325 MG TABLET 650 MG PO (18:30)
== END 2024-06-07 18:53 | DRG 690 ==
LOC: ANHED 18:14 → ANH3MEDSUR 20:00 → ANH3MED 20:05
PROVIDERS: Emergency Medicine; Hospitalist; Internal Medicine; Nurse Practitioner Gerontology; Admitting Provider General Practice; Emergency Provider Emergency Medicine; Visit Provider Internal Medicine
DX: N30.90 Cystitis, unspecified without hematuria (principal); E87.1 Hypo-osmolality and hyponatremia; B96.1 Klebsiella pneumoniae [K. pneumoniae] as the cause of diseases classified elsewhere; K59.00 Constipation, unspecified; E11.9 Type 2 diabetes mellitus without complications; I10 Essential (primary) hypertension; Z88.0 Allergy status to penicillin; Z96.641 Presence of right artificial hip joint; Z90.49 Acquired absence of other specified parts of digestive tract
CPT/HCPCS: 36415; 74177; 80048; 80053; 81001; 83690; 83735; 83935; 84100; 84295; 84300; 84439; 84443; 84480; 85025; 85027; 87045; 87086; 87186; 87427; 87449; 87493; 96365; 96372; 96375; 97110; 97161; 97166; 97530; 97535; 99285; A9270; G0378; J1650; J2185; J2405; J7030; Q9967

== ENCOUNTER 2024-08-06 20:00 | Emergency (ER) | payer MEDICARE, SELFPAY ==
--- NOTE | ~2024-08-06 | XR_ITS ---
XR chest 1V portable Ordering provider: Kye Cartwright MD History: 78 years Female with . weakness . Comparison: January 04, 2011 FINDINGS: MEDIASTINUM: The cardiac silhouette is not enlarged. LUNGS: No effusions or pneumothorax. Bilateral perihilar and lower lobe opacification suggestive of p neumonia. Follow-up advised. OTHER: No free air under the diaphragm. Left shoulder arthroplasty. Degenerative changes. IMPRESSION: Bilateral pneumonia. Reviewed, dictated and finalized at location A. IMPRESSION: Bilateral pneumonia.
[2024-08-06 20:01] VITALS: BP 121/77; PULSE 113; RESP 17; TEMP 37; O2SAT 94
[2024-08-06 20:12] VITALS: PULSE 113
--- NOTE | 2024-08-06 20:13 | ECG_ITS ---
Test Date: 2024-08-06 20:40:38 Measurements Intervals [place] Rate: 107 P: 26 SD: 172 QRS: -58 QRSD: 129 T: 12 QT: 336 QTc: 449 Interpretive Statements SINUS TACHYCARDIA LEFT AXIS DEVIATION RIGHT BUNDLE BRANCH BLOCK VOLTAGE CRITERIA FOR LVH CONSIDER INFERIOR INFARCT, AGE INDETERMINATE POSSIBLE ANTEROLATERAL MYOCARDIAL INFARCTION , OF INDETERMINATE AGE BASELINE ARTIFACT- I, II, III, AVR, AVL, V1 ABNORMAL ECG Compared to ECG 01/03/2024 05:28:14 NO SIGNIFICANT CHANGE Electronically Signed On 08-07-2024 07:07:15 CDT by Chema Bowles D.O.
--- NOTE | 2024-08-06 20:19 | ED_ITS ---
HPI - General Adult General Chief complaint: Unspecified Stated complaint: INCREASE IN TREMMORS & BODY ACHES Time Seen by Provider: 08/06/24 20:06 History of Present Illness HPI narrative: Patient 78-year-old female who presents emergency department chief complaint of chills and tremor. The patient reports she has history of a tremor but normally has very mild. The patient states that today she started getting chills had noticed that her tremor started to get more does report that she had some shortness of breath with this as well denies fever denies vomiting denies diarrhea Related Data Home Medications ?Medication ?Instructions ?Recorded ?Confirmed ?Last Taken ?Type atorvastatin 10 mg tablet (Lipitor) 10 mg PO DAILY 05/31/24 05/31/24 Unknown History bisacodyl 5 mg tablet 5 mg PO BID 05/31/24 05/31/24 Unknown History gabapentin 300 mg capsule 300 mg PO TID 05/31/24 05/31/24 Unknown History lisinopril 10 mg tablet 10 mg PO DAILY 05/31/24 05/31/24 Unknown History meloxicam 15 mg tablet 15 mg PO DAILY 05/31/24 05/31/24 Unknown History polyethylene glycol 3350 17 17 g PO DAILY PRN constipation 05/31/24 05/31/24 Unknown History gram/dose oral powder (Miralax) trazodone 100 mg tablet 100 mg PO HS 05/31/24 05/31/24 Unknown History Allergies Allergy/AdvReac Type Severity Reaction Status Date / Time Penicillins Allergy Intermediate Unknown Verified 08/06/24 20:28 vancomycin Allergy Redness of Verified 08/06/24 20:28 Skin Review of Systems 2 Review of Systems: A 10 system review of systems was completed on the patient and is negative except for what is stated in the HPI. Nursing and ancillary documentation was reviewed. [facility] Past Medical History Medical History Hypertension Diabetes Surgical History Surgical History History of total right hip arthroplasty Hx of cholecystectomy Family History Family History Sibling Cancer Grandparent Diabetes mellitus Throat cancer Mother Diabetes mellitus Social History Social History Smoking status: Never smoker Alcohol intake: never Substance use: never Do You Feel Safe in your Home?: Yes Lack of Transportation: No Lack of Food: Never True Current Housing: I Have Housing Concerned About Future Housing: No Difficulty Paying Gas/Electric Bills: No Difficulty Paying for Meds: No Currently Unemployed: No Education: Associate Degree Difficulty w/ Childcare or Family Care: No Spiritual care concerns: No Exam 2 Narrative: GENERAL: Well-appearing, well-nourished, and in no acute distress. HEAD: Normocephalic, atraumatic. EYES: PERRLA and EOMI. ENT: Nares clear, no rhinorrhea or epistaxis. Mucous membranes moist. NECK: Supple. CHEST: Clear to auscultation. No respiratory distress. HEART: Regular rate and rhythm. No murmur heard. Normal peripheral pulses. ABDOMEN: Soft, nontender, nondistended, normal active bowel sounds. EXTREMITIES: Normal range of motion. No edema. SKIN: Warm, dry, no rash. NEURO: No focal deficits. Alert and oriented x3. Resting tremor present PSYCH: Normal mood and affect. Course Vital Signs Vital signs: Vital Signs Temperature 37.0 C 08/06/24 20:01 Pulse Rate 113 H 08/06/24 20:01 Respiratory Rate 17 08/06/24 20:01 Blood Pressure 121/77 08/06/24 20:01 Pulse Oximetry 94 08/06/24 20:01 Oxygen Delivery Room Air 08/06/24 20:01 Temperature 37.0 C 08/06/24 20:01 Pulse Rate 105 H 08/06/24 23:47 Respiratory Rate 18 08/06/24 23:47 Blood Pressure 134/86 08/06/24 23:47 Pulse Oximetry 92 08/06/24 23:47 Oxygen Delivery Room Air 08/06/24 20:01 Medical Decision Making [facility] Narrative Medical decision making narrative: Differential diagnosis includes pneumonia, electrolyte abnormality, dehydration, ACS Laboratory studies were obtained showed a troponin 0.021 BNP was 958 electrolytes showed a magnesium 1.5 patient did have a urinary tract infection chest x-ray showed evidence of pneumonia Patient was discussed whether to admit or to treat with oral antibiotics for home. Discussion with the patient she would like to try outpatient therapy patient was started on cefdinir and doxycycline Vital Signs Vital Signs: Vital Signs Temperature 37.0 C 08/06/24 20:01 Pulse Rate 113 H 08/06/24 20:01 Respiratory Rate 17 08/06/24 20:01 Blood Pressure 121/77 08/06/24 20:01 Pulse Oximetry 94 08/06/24 20:01 Oxygen Delivery Room Air 08/06/24 20:01 Temperature 37.0 C 08/06/24 20:01 Pulse Rate 105 H 08/06/24 23:47 Respiratory Rate 18 08/06/24 23:47 Blood Pressure 134/86 08/06/24 23:47 Pulse Oximetry 92 08/06/24 23:47 Oxygen Delivery Room Air 08/06/24 20:01 Lab Data 08/06/24 21:05 08/06/24 21:05 Labs: Lab Results 08/06/24 08/06/24 08/06/24 Range/Units 21:05 21:16 22:31 WBC 11.7 H (4.5-10.0) K/mm3 RBC 3.62 L (4.2-5.4) M/mm3 Hgb 11.1 L (12.0-15.0) g/dL Hct 34.2 L (37.0-47.0) % MCV 94.5 (80-100) fl MCH 30.7 (26-34) pg MCHC 32.5 (32-36) g/dl RDW 12.5 (11.5-14.5) % Plt Count 147 L (150-375) k/mm3 MPV 10.5 H (7.4-10.4) fl Immature Gran % (Auto) Not Reportable Neut % (Auto) Not Reportable Lymph % (Auto) Not Reportable [place] % (Auto) Not Reportable Eos % (Auto) Not Reportable Baso % (Auto) Not Reportable Lymph # (Auto) Not Reportable [place] # (Auto) Not Reportable Eos # (Auto) Not Reportable Baso # (Auto) Not Reportable Abs Immat Gran (auto) Not Reportable Absolute Neuts (auto) Not Reportable Absolute Nucleated RBC Not Reportable Total Counted 100 Neutrophils % (Manual) 86 H (46-73) % Band Neutrophils % 4 (0-6) % Lymphocytes % (Manual) 7.0 L (18-44) % Monocytes % (Manual) 1 L (3-9) % Eosinophils % (Manual) 1 (0-4) % Basophils % (Manual) 1 (0-1) % Nucleated RBC % Not Reportable Abs Neuts (Manual) 10.53 H (1.3-6.7) K/mm3 Abs Lymphs (Manual) 0.81 L (1.1-4.5) K/mm3 Abs Monocytes (Manual) 0.11 (0.1-0.90) K/mm3 Absolute Eos (Manual) 0.11 (0.02-0.50) K/mm3 Abs Basophils (Manual) 0.11 H (0.0-0.1) K/mm3 Platelet Estimate Slightly decreased (Adequate) Schistocytes None seen Sodium 135 L (137-145) mmol/L Potassium 4.9 (3.4-5.0) mmol/L Chloride 101 (98-107) mmol/L Carbon Dioxide 27 (22-30) mmol/L Anion Gap 7 (4-12) mmol/L BUN 22 H (7-17) mg/dL Creatinine 1.05 H (0.7-1.0) mg/dL Estim Creat Clear Calc 47 ml/min Estimated GFR 51 L (59 - ) Glucose 188 H (65-110) mg/dL Lactic Acid 1.4 (0.7-2.0) mmol/L Calcium 8.6 (8.4-10.2) mg/dL Magnesium 1.5 L (1.6-2.3) mg/dL Total Bilirubin 0.5 (0.2-1.3) mg/dL AST 22 (14-36) U/L ALT 15 (6-35) U/L Alkaline Phosphatase 84 (38-126) U/L Troponin I 0.021 (0.000-0.034) ng/mL NT-Pro-B Natriuret Pep 958 H (19.9-100) pg/mL Total Protein 6.4 (6.3-8.2) g/dL Albumin 3.3 L (3.5-5.1) g/dL Lipase 83 (23-300) U/L Procalcitonin 0.1 ng/mL TSH (Reflex) 0.919 (0.465-4.68) uIU/mL Urine Color Yellow (Yellow) Urine Appearance Turbid H (Clear) Urine pH 6.5 (5.0-9.0) Ur Specific [place] 1.009 (1.001-1.035) Urine Protein 1+ H (Negative) mg/dL Urine Glucose (UA) Negative (Negative) mg/dL Urine Ketones Negative (Negative) mg/dL Ur Blood (Man) 2+ H (Negative) Urine Nitrate Positive H (Negative) Urine Bilirubin Negative (Negative) Urine Urobilinogen 0.2 (<2.0) mg/dL Leukocyte Esterase Rfl 3+ H (Negative) JOANN/UL Urine RBC 11-20 H (0-2) /hpf Urine WBC >100 H (0-3) /hpf Ur Squamous Epith Cells None seen (Few) /hpf Urine Bacteria 4+ H /hpf Urine Casts 0-2 Influenza A (RT-PCR) Negative (Negative) Influenza B (RT-PCR) Negative (Negative) RSV (RT-PCR) Negative (Negative) SARS-CoV-2 RNA (RT-PCR) Negative (Negative) Discharge Plan Discharge Clinical Impression: Pneumonia, Acute UTI, Hypomagnesemia Patient Disposition: Home Condition: Stable Instructions: Antibiotic Form, Urinary Tract Infection in Women (ED), Bacterial Pneumonia (ED), Hypomagnesemia (ED) Patient Language: Egyptian Prescriptions: New cefdinir 300 mg capsule 300 mg PO Q12H 10 Days Qty: 20 0RF doxycycline hyclate 100 mg tablet 100 mg PO BID Qty: 14 0RF No Action bisacodyl 5 mg tablet 5 mg PO BID gabapentin 300 mg capsule 300 mg PO TID atorvastatin [Lipitor] 10 mg tablet 10 mg PO DAILY lisinopril 10 mg tablet 10 mg PO DAILY meloxicam 15 mg tablet 15 mg PO DAILY trazodone 100 mg tablet 100 mg PO HS polyethylene glycol 3350 [Miralax] 17 gram/dose powder 17 g PO DAILY PRN (Reason: constipation) hydrocodone-acetaminophen 5-325 mg tablet 1 tablet PO Q6H PRN (Reason: pain (scale score 4-6)) Qty: 20 0RF Follow-up/Referrals: PHYSICIAN NOT ON STAFF,NONSTAFF [Primary Care Provider] - Time of Disposition: 23:53
[2024-08-06 20:26] VITALS: RESP 17; O2SAT 95
[2024-08-06] MEDS: SODIUM CHLORIDE 0.9% IV 1,000 ML 999 ML IV CONT (20:33)
[2024-08-06 21:05] VITALS: PULSE 101; RESP 19; O2SAT 91
[2024-08-06 21:09] LABS: Hematocrit 34.2 % (37.0-47.0); Hemoglobin 11.1 g/dL (12.0-15.0); Mean Corpuscular HGB Conc 32.5 g/dl (32-36); Mean Corpuscular Hemoglobin 30.7 pg (26-34); Mean Corpuscular Volume 94.5 fl (80-100); Mean Platelet Volume 10.5 fl (7.4-10.4); Platelet Count Result 147 k/mm3 (150-375); Red Blood Count 3.62 M/mm3 (4.2-5.4); Red Cell Distribution Width 12.5 % (11.5-14.5); White Blood Count 11.7 K/mm3 (4.5-10.0)
[2024-08-06 21:24] LABS: Alanine Aminotransferase 15 U/L (6-35); Albumin Level 3.3 g/dL (3.5-5.1); Alkaline Phosphatase 84 U/L (38-126); Anion Gap 7 mmol/L (4-12); Aspartate Amino Transferase 22 U/L (14-36); Bilirubin,Total 0.5 mg/dL (0.2-1.3); Blood Urea Nitrogen 22 mg/dL (7-17); Calcium 8.6 mg/dL (8.4-10.2); Carbon Dioxide 27 mmol/L (22-30); Chloride 101 mmol/L (98-107); Estimated CRCL calculation 47 ml/min; Estimated Glomerular Filt Rate 51; Glucose 188 mg/dL (65-110); Lipase 83 U/L (23-300); Magnesium 1.5 mg/dL (1.6-2.3); Potassium 4.9 mmol/L (3.4-5.0); Sodium 135 mmol/L (137-145); Total Protein 6.4 g/dL (6.3-8.2)
[2024-08-06 21:27] LABS: Lactic Acid Reflex 1.4 mmol/L (0.7-2.0)
[2024-08-06 21:35] LABS: Band Neutrophils Percent 4 % (0-6); Basophils Absolute Manual 0.11 K/mm3 (0.0-0.1); Basophils Percent Manual 1 % (0-1); Eosinophils Absolute Manual 0.11 K/mm3 (0.02-0.50); Eosinophils Percent Manual 1 % (0-4); Lymphocytes Absolute Manual 0.81 K/mm3 (1.1-4.5); Monocytes Absolute Manual 0.11 K/mm3 (0.1-0.90); Monocytes Percent Manual 1 % (3-9); Neutrophils Absolute Manual 10.53 K/mm3 (1.3-6.7); Neutrophils Percent Manual 86 % (46-73); Platelet Estimate Slightly Decreased (Adequate); Total Cells Counted 100
[2024-08-06 21:36] LABS: NT Pro B Type Natriuretic Pept 958 pg/mL (19.9-100); Schistocytes None Seen; Troponin I 0.021 ng/mL (0.000-0.034)
[2024-08-06 21:45] LABS: Procalcitonin 0.1 ng/mL
[2024-08-06 21:59] LABS: Thyroid Stimulating Hormone Reflex 0.919 uIU/mL (0.465-4.68)
[2024-08-06 22:00] LABS: Influenza A QL RT-PCR Negative (Negative); Influenza B QL RT-PCR Negative (Negative); RSV RNA, RT-PCR Negative (Negative); SARS-CoV-2 RNA PCR Negative (Negative)
[2024-08-06] MEDS: MAGNESIUM SULF 2 GM/WATER 50ML 2 GM/50 ML BAG IVPB (22:05)
[2024-08-06 22:43] LABS: Add Urine Microscopic? YES; Appearance Urine Turbid (Clear); Bacteria Urine 4+ /hpf; Bilirubin Urine Negative (Negative); Blood Urine 2+ (Negative); Color Urine Yellow (Yellow); Glucose Urine UA Negative (Negative); Ketones Urine Negative (Negative); Leukocyte Esterase Ur 3+ LEU/UL (Negative); Nitrate Urine Positive (Negative); Non Pathogenic Casts 0-2; Protein Urine 1+ mg/dL (Negative); Specific Grav Ur 1.009 (1.001-1.035); Squamous Epithelial Cell Urine None Seen /hpf (Few); Urobilinogen Urine 0.2 mg/dL (<2.0); WBC Urine >100 /hpf (0-3); pH Urine 6.5 (5.0-9.0)
[2024-08-06 23:47] VITALS: BP 134/86; PULSE 105; RESP 18; O2SAT 92
[2024-08-07] MEDS: CEFDINIR 300 MG CAPSULE PO (00:30)
[2024-08-07] MEDS: DOXYCYCLINE HYCLATE 100 MG TABLET PO (00:31)
--- NOTE | 2024-08-07 00:56 | PC.NURSE ---
This RN tried to call [facility] to update facility about pts POC and arrival back. This RN received no answer
[2024-08-07 02:58] VITALS: BP 134/86; PULSE 105; RESP 18; O2SAT 92
--- NOTE | 2024-08-07 19:13 | PC.NURSE ---
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 Dr. Cartwright saw patient during ED visit and notified of result. Per Dr. Cartwright, patient wanted to try outpatient anitbiotic therapy and antibiotics patient DC'd on should cover infection, but call patient to ensure that she is feeling better. If not feeling better, advise to return to ED. Unable to reach patient on personal phone ([phone]). Emergency contact, Gunner ([phone]), notified. Will continue to attempt to reach patient.
--- NOTE | 2024-08-07 19:36 | PC.NURSE ---
1936- Able to reach patient per phone. I relayed the information and asked that she return to the ED if no improvement. She voiced understanding.
== END 2024-08-07 03:00 | disposition home or self-care (01) ==
PROVIDERS: Emergency Provider Emergency Medicine
DX: J18.9 Pneumonia, unspecified organism (principal); N39.0 Urinary tract infection, site not specified; E83.42 Hypomagnesemia; R06.02 Shortness of breath; Z20.822 Contact with and (suspected) exposure to COVID-19; I10 Essential (primary) hypertension; E11.9 Type 2 diabetes mellitus without complications; Z96.641 Presence of right artificial hip joint; Z90.49 Acquired absence of other specified parts of digestive tract; Z79.899 Other long term (current) drug therapy; R00.0 Tachycardia, unspecified; I45.10 Unspecified right bundle-branch block; R94.31 Abnormal electrocardiogram [ECG] [EKG]
CPT/HCPCS: 36415; 71045; 80053; 81001; 83605; 83690; 83735; 83880; 84145; 84443; 84484; 85025; 87040; 87086; 87186; 87637; 93005; 96361; 96365; 96366; 99284; A9270; J3475; J7030

== ENCOUNTER 2024-08-07 23:00 | Inpatient (IN) | payer MEDICARE, SELFPAY ==
--- NOTE | ~2024-08-07 | XR_ITS ---
EXAMINATION: XR chest 1V portable DATE: 08/13/2024 07:55 INDICATION: Cough. Leukocytosis. TECHNIQUE: frontal view of the chest was obtained. COMPARISON: Chest radiograph dated 08/06/2024 FINDINGS: Calcified nodule in the right lower lung zone. No other airspace opacities, pulmonary edema, pleural effusion or pneumothorax. Are size is normal. Dense mitral annular calcification. Cholecystectomy cli ps in right upper quadrant. Left total shoulder arthroplasty better appreciated on the prior radiogra ph. IMPRESSION: 1. No acute cardiopulmonary disease. Reviewed, dictated and finalized at location A.
[2024-08-07 23:01] VITALS: BP 128/64; PULSE 79; RESP 18; TEMP 36.4; O2SAT 96
--- NOTE | 2024-08-07 23:48 | ED_ITS ---
HPI - General Adult General Chief complaint: Recheck/Abnormal Lab/Rx Stated complaint: called back for +cultures, needs admission Time Seen by Provider: 08/07/24 23:48 History of Present Illness HPI narrative: Patient is 78-year-old female who presents emergency department with chief com plaint of positive blood cultures and pneumonia. Patient was seen in the emergency department yesterday and diagnosed with pneumonia. The patient was offered admission chose to attempt outpatient management. Blood cultures were sent on the patient that were positive today of the patient had reported that she was still not feeling well and was instructed to return to the emergency department. Related Data Home Medications ?Medication ?Instructions ?Recorded ?Confirmed ?Last Taken ?Type atorvastatin 10 mg tablet (Lipitor) 10 mg PO DAILY 05/31/24 05/31/24 Unknown History bisacodyl 5 mg tablet 5 mg PO BID 05/31/24 05/31/24 Unknown History gabapentin 300 mg capsule 300 mg PO TID 05/31/24 05/31/24 Unknown History lisinopril 10 mg tablet 10 mg PO DAILY 05/31/24 05/31/24 Unknown History meloxicam 15 mg tablet 15 mg PO DAILY 05/31/24 05/31/24 Unknown History polyethylene glycol 3350 17 17 g PO DAILY PRN constipation 05/31/24 05/31/24 Unknown History gram/dose oral powder (Miralax) trazodone 100 mg tablet 100 mg PO HS 05/31/24 05/31/24 Unknown History Allergies Allergy/AdvReac Type Severity Reaction Status Date / Time Penicillins Allergy Intermediate Unknown Verified 08/06/24 20:28 vancomycin Allergy Redness of Verified 08/06/24 20:28 Skin Review of Systems Review of Systems: A 10 system review of systems was completed on the patient and is negative except for what is stated in the HPI. Nursing and ancillary documentation was reviewed. [facility] Past Medical History Medical History Hypertension Diabetes Surgical History Surgical History History of total right hip arthroplasty Hx of cholecystectomy Family History Family History Sibling Cancer Grandparent Diabetes mellitus Throat cancer Mother Diabetes mellitus Social History Social History Smoking status: Never smoker Alcohol intake: never Substance use: never Do You Feel Safe in your Home?: Yes Lack of Transportation: No Lack of Food: Never True Current Housing: I Have Housing Concerned About Future Housing: No Difficulty Paying Gas/Electric Bills: No Difficulty Paying for Meds: No Currently Unemployed: No Education: Associate Degree Difficulty w/ Childcare or Family Care: No Spiritual care concerns: No Exam Narrative: GENERAL: Well-appearing, well-nourished, and in no acute distress. HEAD: Normocephalic, atraumatic. EYES: PERRLA and EOMI. ENT: Nares clear, no rhinorrhea or epistaxis. Mucous membranes moist. NECK: Supple. CHEST: Clear to auscultation. No respiratory distress. HEART: Regular rate and rhythm. No murmur heard. Normal peripheral pulses. ABDOMEN: Soft, nontender, nondistended, normal active bowel sounds. EXTREMITIES: Normal range of motion. No edema. SKIN: Warm, dry, no rash. NEURO: No focal deficits. Alert and oriented x3. PSYCH: Normal mood and affect. Course Vital Signs Vital signs: Vital Signs Temperature 36.4 C 08/07/24 23:01 Pulse Rate 79 08/07/24 23:01 Respiratory Rate 18 08/07/24 23:01 Blood Pressure 128/64 08/07/24 23:01 Pulse Oximetry 96 08/07/24 23:01 Oxygen Delivery Room Air 08/07/24 23:01 Temperature 36.4 C 08/07/24 23:01 Pulse Rate 79 08/07/24 23:01 Respiratory Rate 18 08/07/24 23:01 Blood Pressure 128/64 08/07/24 23:01 Pulse Oximetry 96 08/07/24 23:01 Oxygen Delivery Room Air 08/07/24 23:01 Medical Decision Making Vital Signs Vital Signs: Vital Signs Temperature 36.4 C 08/07/24 23:01 Pulse Rate 79 08/07/24 23:01 Respiratory Rate 18 08/07/24 23:01 Blood Pressure 128/64 08/07/24 23:01 Pulse Oximetry 96 08/07/24 23:01 Oxygen Delivery Room Air 08/07/24 23:01 Temperature 36.4 C 08/07/24 23:01 Pulse Rate 79 08/07/24 23:01 Respiratory Rate 18 08/07/24 23:01 Blood Pressure 128/64 08/07/24 23:01 Pulse Oximetry 96 08/07/24 23:01 Oxygen Delivery Room Air 08/07/24 23:01 Discharge Plan Discharge Clinical Impression: Pneumonia, Bacteremia Patient Disposition: Still a Patient Condition: Stable Patient Language: Brazilian Prescriptions: No Action cefdinir 300 mg capsule 300 mg PO Q12H 10 Days Qty: 20 0RF doxycycline hyclate 100 mg tablet 100 mg PO BID Qty: 14 0RF bisacodyl 5 mg tablet 5 mg PO BID gabapentin 300 mg capsule 300 mg PO TID atorvastatin [Lipitor] 10 mg tablet 10 mg PO DAILY lisinopril 10 mg tablet 10 mg PO DAILY meloxicam 15 mg tablet 15 mg PO DAILY trazodone 100 mg tablet 100 mg PO HS polyethylene glycol 3350 [Miralax] 17 gram/dose powder 17 g PO DAILY PRN (Reason: constipation) hydrocodone-acetaminophen 5-325 mg tablet 1 tablet PO Q6H PRN (Reason: pain (scale score 4-6)) Qty: 20 0RF Follow-up/Referrals: PHYSICIAN NOT ON STAFF,NONSTAFF [Primary Care Provider] - Time of Disposition: 00:25
[2024-08-08] VITALS (9 sets, daily range): BP systolic 101–181; BP diastolic 41–85; PULSE 72–88; RESP 16–18; TEMP 36.1–36.8; O2SAT 94–99; BMI 42.4
--- NOTE | 2024-08-08 | ECHO_ITS ---
Patient Info Name: Maria M Lombardo Age: 78 years : 1945 Gender: Female Ht: 62 in Wt: 232 lbs BSA: 2.21 m2 HR: 74 bpm BP: 101 / 41 mmHg Technical Quality: Poor Exam Date: 08/08/2024 1:21 PM Patient Status: I Admit Date: 08/08/2024 Exam Type: CA echo doppler color flow [employer] Supply Worker: Janeth Willingham Attending Provider: Giselle Diego DO Summary 1. Technically difficult study with limited views due to body habitus, poor patient cooperation. 2. Left ventricular chamber dimension is normal. 3. Left ventricular systolic function is normal, estimated at 65-70. 4. There is mildly increased left ventricular wall thickness. 5. There is mild tricuspid valve regurgitation. 6. There is small anterior pericardial effusion. Left Ventricle Left ventricular chamber dimension is normal. Left ventricular systolic function is normal, estimated at 65-70. There is mildly increased left ventricular wall thickness. Right Ventricle Right ventricular chamber dimension is not well visualized. Left Atria Left atrial chamber dimension is not well visualized. Right Atria Right atrial chamber dimension is not well visualized. Atrial Septum Intact interatrial septum visualized by color flow imaging. Aortic Valve The aortic valve is probable trileaflet. There is no aortic valve regurgitation. There is moderate aortic valve calcification. Pulmonic Valve The pulmonic valve is not well visualized. There is no pulmonic regurgitation. Mitral Valve The mitral valve has not well visualized leaflets. The mitral valve annulus is moderately calcified. Tricuspid Valve There is mild tricuspid valve regurgitation. Pericardium/Pleural There is small anterior pericardial effusion. Inferior Vena Cava Inferior vena cava is not well visualized. Aorta The aortic root size at the sinus of Valsalva is normal. Left Ventricular Outflow Tract Name Value Normal LVOT 2D LVOT Diameter 1.9 cm Pulmonic Valve Name Value Normal PV Doppler PV Peak Velocity 136 cm/s PV Peak Gradient 7 mmHg Tricuspid Valve Name Value Normal TV Regurgitation Doppler TR Peak Velocity 302 cm/s TR Peak Gradient 31 mmHg Estimated PAP/RSVP RV Systolic Pressure 41 mmHg <36 Aortic Valve Name Value Normal AV 2D/MM AV Area (Planimetry) 1.6 cm2 AV Regurgitation 2D LVOT Area 3.0 cm2 Ventricles Name Value Normal LV Dimensions 2D/MM IVS Diastolic Thickness (2D) 1.3 cm 0.6-1.0 LVID Diastole (2D) 4.2 cm 3.8-5.2 LVIW Diastolic Thickness (2D) 1.1 cm 0.6-0.9 LVID Systole (2D) 3.1 cm 2.2-3.5 LVOT Diameter 1.9 cm LV Mass (2D Cubed) 183.88 g 67.00-162.00 LV Mass Index (2D Cubed) 83 g/m2 43-95 Relative Wall Thickness (2D) 0.55 <=0.42 LV Fractional Shortening/Ejection Fraction 2D/MM LV Fractional Shortening (2D) 27 % 27-45 LV EF (2D Teichjohn) 52 % Report Signatures
--- NOTE | 2024-08-08 00:46 | PC.NURSE ---
This RN and REENA Newsome both attempted blood draw on pt and was unsuccessful. Phelobotomy callled at this time.
[2024-08-08 01:16] LABS: Basophils Absolute Auto 0.1 K/mm3 (0.0-0.1); Basophils Percent Auto 0.8 % (0.2-1.2); Eosinophils Absolute Auto 0.2 K/mm3 (0-0.3); Eosinophils Percent Auto 2.1 % (0-4.4); Hematocrit 32.3 % (37.0-47.0); Hemoglobin 10.3 g/dL (12.0-15.0); Immature Granulocyte Absolute 0.04 K/mm3 (0.00-0.031); Immature Granulocyte Percent A 0.4 % (0-0.5); Lymphocytes Absolute Auto 1.83 K/mm3 (0.9-3.2); Mean Corpuscular HGB Conc 31.9 g/dl (32-36); Mean Corpuscular Hemoglobin 30.2 pg (26-34); Mean Corpuscular Volume 94.7 fl (80-100); Mean Platelet Volume 10.6 fl (7.4-10.4); Monocytes Absolute Auto 1.1 K/mm3 (0.1-0.6); Monocytes Percent Auto 11.5 % (2.6-8.5); Neutrophils Percent Auto 65.2 % (45.5-73.1); Platelet Count Result 145 k/mm3 (150-375); Red Blood Count 3.41 M/mm3 (4.2-5.4); Red Cell Distribution Width 12.8 % (11.5-14.5); White Blood Count 9.1 K/mm3 (4.5-10.0)
[2024-08-08 01:25] LABS: Lactic Acid Reflex 1.1 mmol/L (0.7-2.0)
[2024-08-08 01:26] LABS: Alanine Aminotransferase 16 U/L (6-35); Albumin Level 3.3 g/dL (3.5-5.1); Alkaline Phosphatase 75 U/L (38-126); Anion Gap 8 mmol/L (4-12); Aspartate Amino Transferase 23 U/L (14-36); Bilirubin,Total 0.7 mg/dL (0.2-1.3); Blood Urea Nitrogen 26 mg/dL (7-17); Calcium 8.3 mg/dL (8.4-10.2); Carbon Dioxide 27 mmol/L (22-30); Chloride 98 mmol/L (98-107); Estimated CRCL calculation 38 ml/min; Estimated Glomerular Filt Rate 41; Glucose 187 mg/dL (65-110); Potassium 3.9 mmol/L (3.4-5.0); Sodium 133 mmol/L (137-145); Total Protein 6.4 g/dL (6.3-8.2)
--- NOTE | 2024-08-08 01:29 | ADMGEN ---
This patient, Maria M Lombardo, was admitted to 3 [facility] Surg Room 309-01. Patient/family oriented to hospital policies and general routines including ID bracelet, bed and alarms, visiting hours, pain management, procedures, bathroom and other care routines, personal items, smoking policy, room service/diet, and visiting hours. Information on how to activate the Rapid Response Team has been discussed. Patient/Family are encouraged to report perceived risks to care and to ask questions if they do not understand what they are told or what they should do.
[2024-08-08 01:53] LABS: Procalcitonin. 3.8 ng/mL
[2024-08-08] MEDS: SODIUM CHLORIDE 0.9% IV 1,000 ML 100 ML IV CONT (02:03)
[2024-08-08] MEDS: DOXYCYCLINE 100 MG/NS 100 ML 100 MG/100 ML BAG IVPB ×2 (02:04→15:06)
--- NOTE | 2024-08-08 02:08 | PC.NURSE ---
This patient, Maria M Lombardo, was admitted to 3 [facility] Surg Room 309-01. Patient/family oriented to hospital policies and general routines including ID bracelet, bed and alarms, visiting hours, pain management, procedures, bathroom and other care routines, personal items, smoking policy, room service/diet, and visiting hours. Information on how to activate the Rapid Response Team has been discussed. Patient/Family are encouraged to report perceived risks to care and to ask questions if they do not understand what they are told or what they should do.
[2024-08-08] MEDS: IPRATROPIUM 0.5 MG/ALBUTEROL SULFATE 2.5 MG AMPUL.NEB 3 ML INHALATION (02:27)
--- NOTE | 2024-08-08 04:18 | P.HP_ITS ---
H&P: HPI History of Present Illness Date/Time: 08/08/24 04:18 Chief Complaint: Called to come back to the ER due to positive blood cultures (Gram-negative bacilli) Narrative: 78-year-old female with a past medical history of essential tremor, chronic kidney disease, diet-controlled diabetes, essential hypertension, hyperlipidemia and distant history of lymphoma who presented to the ER her [facility] facility via private vehicle due to positive blood cultures. The patient had been evaluated in the ER late on the due to chief complaint of chills and increased tremor from baseline. She had evidently reported some shortness of breath on the but did not report shortness of breath at the time of my evaluation. She read denied having any cough or congestion. She is on room air at the time my evaluation. She denies any urinary symptoms but wears depends at all times. It was suggested that she be admitted for further treatment while awaiting cultures but the patient opted to go home. Her UA in the ER yesterday was also suggestive of UTI. She was discharged home on cefdinir and doxycycline after see receiving 1 dose around midnight prior to being discharged home. The patient was supposed to have started her antibiotics on the morning of the but she did not do so. Despite not starting her antibiotics her white count did go down to 9.1 today but unfortunately her blood cultures came back positive for Gram-negative bacilli in the aerobic bottle only. Blood cultures came back positive and 21 hours from being drawn. Patient denied having any fevers but has been having chills. She denies any nausea or vomiting. The patient is alert oriented to person place and year. She is confused as to the month she thought that the month was February and she thought that the president was Ezequiel Lombardi. She does admit to having some increased confusion over the last several weeks. Imaging on the demonstrated possible pneumonia on x-ray. Patient was also complaining of some lower abdominal pain on presentation the ER yesterday. At the time of my evaluation she did have some tenderness to palpation of her suprapubic region. Review of Systems 2 Review of Systems: 12 systems were reviewed with pertinent positives and negatives per HPI. Except as documented in the HPI, all other systems were reviewed and are negative. However review of systems is unreliable due to patient's confusion. [facility] Past Medical History Medical History (Updated 08/08/24 @ 07:59 by Giselle Diego DO) Chronic hyponatremia CKD (chronic kidney disease) stage 3, GFR 30-59 ml/min Patient's GFR May 2024 pain between 51 and 55 Lymphoma Diet-controlled diabetes mellitus Gallstone pancreatitis Hyperlipidemia TIA (transient ischemic attack) (~2010) Hypertension Diabetes Surgical History Surgical History (Updated 08/08/24 @ 07:51 by Giselle Diego DO) Status post cataract extraction of both eyes with insertion of intraocular lens History of right hip replacement X2 History of bilateral knee replacement History of left shoulder replacement History of total right hip arthroplasty Hx of cholecystectomy Family History Family History Sibling Cancer Grandparent Diabetes mellitus Throat cancer Mother Diabetes mellitus Social History Social History (Updated 08/08/24 @ 07:50 by Giselle Diego DO) Social History: Patient resides at [facility]. 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 She is a lifelong nonsmoker and does not drink alcohol. Code status: Full code (per EMR) Surrogate decision maker: Gunner (son) Smoking status: Never smoker Alcohol intake: never Substance use: never Substance use type: does not use Do You Feel Safe in your Home?: Yes Lack of Transportation: No Lack of Food: Never True Current Housing: I Have Housing Concerned About Future Housing: No Difficulty Paying Gas/Electric Bills: No Difficulty Paying for Meds: No Currently Unemployed: No Education: Decline to Answer Difficulty w/ Childcare or Family Care: No Spiritual care concerns: No Meds Home Medications and Allergies Home Medications ?Medication ?Instructions ?Recorded ?Confirmed ?Type atorvastatin 10 mg tablet (Lipitor) 10 mg PO DAILY 05/31/24 08/08/24 History gabapentin 300 mg capsule 300 mg PO TID 05/31/24 08/08/24 History lisinopril 10 mg tablet 10 mg PO DAILY 05/31/24 08/08/24 History meloxicam 15 mg tablet 15 mg PO DAILY 05/31/24 08/08/24 History polyethylene glycol 3350 17 17 g PO DAILY PRN constipation 05/31/24 08/08/24 History gram/dose oral powder (Miralax) trazodone 100 mg tablet 100 mg PO HS 05/31/24 08/08/24 History hydrocodone 5 mg-acetaminophen 325 1 tablet PO Q6H PRN pain (scale 06/07/24 08/08/24 Rx mg tablet score 4-6) #20 tabs cefdinir 300 mg capsule 300 mg PO Q12H 10 days #20 caps 08/06/24 08/08/24 Rx Allergies Allergy/AdvReac Type Severity Reaction Status Date / Time Penicillins Allergy Intermediate Unknown Verified 08/06/24 20:28 vancomycin Allergy Redness of Verified 08/06/24 20:28 Skin Vital Signs Vital Signs - 24 hr 08/07/24 23:01 08/08/24 00:53 08/08/24 00:53 Temperature 97.6 F Pulse Rate 79 72 Respiratory Rate 18 18 18 Blood Pressure 128/64 181/85 H Pulse Oximetry 96 98 98 Oxygen Delivery Room Air Room Air 08/08/24 01:33 08/08/24 01:49 08/08/24 02:27 Temperature 97.7 F Pulse Rate 88 88 Respiratory Rate 16 16 Blood Pressure 144/65 H Pulse Oximetry 94 Oxygen Delivery Room Air 08/08/24 02:40 Temperature Pulse Rate 88 Respiratory Rate 16 Blood Pressure Pulse Oximetry Oxygen Delivery Exam 2 Narrative: Weight 105.3 kg BMI 42.5 Const: Other: Morbidly obese, no acute distress, appears stated age HENMT: Other: Mucous membranes are tacky, no oral pharyngeal erythema, good dentition Eyes: Other: Pupils are equal and reactive, no scleral icterus, no conjunctival pallor Neck: Other: Large neck circumference, no JVD, no lymphadenopathy Resp: Other: Clear to auscultation bilaterally, no increased work of breathing, no witness coughing Cardio: Other: 3/6 systolic murmur, 2+ bilateral radial pedal pulses, no JVD GI: Other: Soft, mild suprapubic tenderness, normoactive bowel sounds : Other: Suprapubic tenderness, incontinent of urine Skin: Other: Normal temperature to touch, non jaundice, mild pallor Neuro: Other: Alert oriented to person, place and year, confused as to the month in the name of the current president, she is conversational and follows all commands, no localizing neurologic deficits noted during the course of conversation Extrem: Other: No clubbing, cyanosis or edema, 5/5 bagel maker strength bilateral Psych: Other: Pleasantly confused, cooperative H&P: Results Labs Labs: Laboratory Tests 08/08/24 01:08 08/08/24 01:08 08/08/24 08/08/24 01:08 01:10 WBC 9.1 RBC 3.41 L Hgb 10.3 L Hct 32.3 L MCV 94.7 MCH 30.2 MCHC 31.9 L RDW 12.8 Plt Count 145 L MPV 10.6 H Immature Gran % (Auto) 0.4 Neut % (Auto) 65.2 Lymph % (Auto) 20.0 [place] % (Auto) 11.5 H Eos % (Auto) 2.1 Baso % (Auto) 0.8 Lymph # (Auto) 1.83 [place] # (Auto) 1.1 H Eos # (Auto) 0.2 Baso # (Auto) 0.1 Abs Immat Gran (auto) 0.04 H Absolute Neuts (auto) 6.0 Absolute Nucleated RBC 0.000 Nucleated RBC % 0.0 Sodium 133 L Potassium 3.9 Chloride 98 Carbon Dioxide 27 Anion Gap 8 BUN 26 H Creatinine 1.26 H Estim Creat Clear Calc 38 Estimated GFR 41 L Glucose 187 H Lactic Acid 1.1 Calcium 8.3 L Total Bilirubin 0.7 AST 23 ALT 16 Alkaline Phosphatase 75 Total Protein 6.4 Albumin 3.3 L Procalcitonin 3.8 Assessment and Plan Assessment and plan (1) Gram-negative bacteremia: Code(s): R78.81 - Bacteremia Status: Acute (2) Acute UTI: Code(s): N39.0 - Urinary tract infection, site not specified Status: Acute (3) Acute kidney injury superimposed on stage 3a chronic kidney disease: Code(s): N17.9 - Acute kidney failure, unspecified; N18.31 - Chronic kidney disease, stage 3a Status: Acute (4) Confusion: Code(s): R41.0 - Disorientation, unspecified Status: Acute Plan Patient's blood cultures are positive for Gram-negative bacilli which makes me suspicious that the patient's primary source of infection is actually UTI. Patient has been started on empiric antibiotic therapy with Rocephin. Will adjust antibiotic therapy pending final culture result. X-ray demonstrated possible I have basilar pneumonia. However patient is not having any current coughing at this time it is not having active respiratory symptoms. Possible imaging could be due to atelectasis. As the patient is not a great historian I will continue the doxycycline until we can confirm with patient's family whether not she had been having respiratory symptoms at home. Will repeat CBC and electrolyte panel on the . Patient does have chronic kidney disease. Her creatinine is up slightly from baseline. Will give IV fluid hydration 100 mL an hour for 2 L and then re- evaluate electrolyte panel with labs tomorrow morning. Will hold the patient's home lisinopril and meloxicam. Patient is confused is unclear whether not this is her baseline id possible mild cognitive impairment or dementia. However I do not find documentation of this within the system. The patient reports she has been having symptoms at least for several weeks may be a few months. Mild cognitive impairment could be likely but she could have a component of metabolic encephalopathy due to acute illness. Will monitor closely. She may benefit from neuro cognitive testing once acute illness has resolved. MEDICAL DECISION MAKING NARRATIVE -Spoke with the ED provider in detail regarding patient's evaluation, workup and management -Patient seen and examined at bedside -Collaborated with patient's nurse at the bedside in detail and addressed all concerns -Labs, electrolytes, radiology, investigations and test results reviewed -ED/Consult/Nursing/Ancilliary notes on the chart reviewed and appreciated -Spoke with patient/family at the bedside and all questions answered Quality VTE Prophylaxis VTE prophylaxis: mechanical ordered (SCDs) Hospitalist MIPS Advance Care Plan I have confirmed that the patient's Advanced Care Plan is present, code status is documented, or surrogate decision maker is listed in patient medical record.: Yes Medication Reconciliation I have utilized all available resources to obtain, update and review the patients current medications (includes all prescriptions, OTC, herbals, cannabis, and nutritional supplements).: Yes
[2024-08-08] MEDS: GABAPENTIN 300 MG CAPSULE PO ×3 (09:13→16:36)
--- NOTE | 2024-08-08 11:54 | P.PNIM_ITS ---
Progress Note: A&P Assessment and Plan (1) Gram-negative bacteremia: Code(s): R78.81 - Bacteremia Status: Acute Assessment and Plan: * Blood cultures from 08/06 grew E coli, awaiting sensitivities. * 08/08 Blood cultures obtained. * Ceftriaxone 1 gram IVPB daily (2) Acute UTI: Code(s): N39.0 - Urinary tract infection, site not specified Status: Acute Assessment and Plan: * UA 08/06: Urine turbid, 1+ protein, 2+ blood, positive nitrate, 3+ leukocytes, RBC 11-20, WBC >100, 4+ bacteria. * Ceftriaxone 1 gram IVPB daily. * NS @ 75 ml/hr. (3) Acute kidney injury superimposed on stage 3a chronic kidney disease: Code(s): N17.9 - Acute kidney failure, unspecified; N18.31 - Chronic kidney disease, stage 3a Status: Acute Assessment and Plan: * BUN 26, Creatinine 1.26, and GFR 41. * Hold Lisinopril and Meloxicam. (4) Pneumonia: Code(s): J18.9 - Pneumonia, unspecified organism Status: Acute Assessment and Plan: * Chest X-ray showed: bilateral pneumonia. * Doxycycline 100 mg IVPB q 12. * Incentive spirometer. * Duo neb q 6 PRN. * PT/OT. * Echocardiogram ordered. Subjective Date/time seen: 08/08/24 11:54 Interval history: Patient sitting up in bed. Patient denies chest pain, palpitations, headache, dizziness, nausea, or vomiting. Review of Systems Review of Systems: All systems reviewed & are unremarkable except as noted in HPI and below Exam Const: General: comfortable and no acute distress Resp: Effort & Inspection: normal respiratory effort Auscultation: clear to auscultation bilaterally Cardio: Rate: regular rate Rhythm: regular rhythm GI: GI Palp: Yes Soft to palpation Auscultation: normal bowel sounds Neuro: Speech: normal speech Extrem: General: no pedal edema Psych: Mental Status: mental status grossly normal Affect: normal affect Objective Data Vital Signs Vital Signs: Vital Signs - 24 hr 08/07/24 23:01 08/08/24 00:53 08/08/24 00:53 Temperature 97.6 F Pulse Rate 79 72 Respiratory Rate 18 18 18 Blood Pressure 128/64 181/85 H Pulse Oximetry 96 98 98 Oxygen Delivery Room Air Room Air 08/08/24 01:33 08/08/24 01:49 08/08/24 02:27 Temperature 97.7 F Pulse Rate 88 88 Respiratory Rate 16 16 Blood Pressure 144/65 H Pulse Oximetry 94 Oxygen Delivery Room Air 08/08/24 02:40 08/08/24 05:27 08/08/24 08:00 Temperature 97 F L Pulse Rate 88 74 Respiratory Rate 16 16 Blood Pressure 101/41 L Pulse Oximetry 95 Oxygen Delivery Room Air 08/08/24 08:03 Temperature Pulse Rate Respiratory Rate Blood Pressure Pulse Oximetry 96 Oxygen Delivery Room Air Intake/Output Intake/Output: Intake & Output 08/05/24 08/06/24 08/07/24 08/08/24 23:59 23:59 23:59 23:59 Intake Total 940 Balance 940 Meds/Results Medications: Active Medications Generic Name Dose Route Start Last Admin Trade Name Freq PRN Reason Stop Dose Admin Acetaminophen 650 mg 08/08/24 00:22 Acetaminophen 325 Mg Tablet PO Q4H PRN Mild Pain (1-3) or Fever Hydrocodone Bitart/Acetaminophen 1 tab 08/08/24 04:17 Hydrocodone/Acetaminophen (*Crx) 5-325 Mg Tablet PO Q6H PRN pain (scale score 4-10 Albuterol/Ipratropium 3 ml 08/08/24 07:56 Ipratropium 0.5 Mg/Albuterol Sulfate 2.5 Mg Ampul.Neb 3 Ml INHALATION Q6HRT PRN Shortness of breath or wheezing Gabapentin 300 mg 08/08/24 09:00 08/08/24 09:13 Gabapentin 300 Mg Capsule PO 300 mg TID JENNIFER Administration Ceftriaxone Sodium 1 gm in 50 mls @ 100 mls/hr 08/09/24 00:00 Rocephin 1 Gm/Ns 50 Ml IVPB Q24H JENNIFER Doxycycline Hyclate 100 mg in 100 mls @ 100 mls/hr 08/08/24 14:00 Vibramycin 100 Mg/Ns 100 Ml IVPB Q12H JENNIFER Sodium Chloride 1,000 mls @ 100 mls/hr 08/08/24 01:40 08/08/24 02:03 Normal Saline Iv IV CONT 100 mls/hr .Q10H JENNIFER Administration Ondansetron HCl 4 mg 08/08/24 00:22 Ondansetron Inj 4 Mg/2 Ml Vial IV PUSH Q4H PRN Nausea Perflutren Lipid Microsphere 0 ml 08/08/24 07:52 Perflutren Lipid Microspheres 1.5 Ml Vial Diluted To 10 Ml Total Volume IV PUSH 08/11/24 07:52 ONCE PRN adequate visualization Protocol Polyethylene Glycol 17 gm 08/08/24 04:18 Polyethylene Glycol 3350 17 Gm Powd.Pack PO DAILY PRN constipation Trazodone HCl 100 mg 08/08/24 21:00 Trazodone Hcl 50 Mg Tablet PO HS [facility] Labs Labs: Laboratory Results - last 24 hr 08/08/24 08/08/24 08/08/24 01:05 01:08 01:10 WBC 9.1 RBC 3.41 L Hgb 10.3 L Hct 32.3 L MCV 94.7 MCH 30.2 MCHC 31.9 L RDW 12.8 Plt Count 145 L MPV 10.6 H Immature Gran % (Auto) 0.4 Neut % (Auto) 65.2 Lymph % (Auto) 20.0 [place] % (Auto) 11.5 H Eos % (Auto) 2.1 Baso % (Auto) 0.8 Lymph # (Auto) 1.83 [place] # (Auto) 1.1 H Eos # (Auto) 0.2 Baso # (Auto) 0.1 Abs Immat Gran (auto) 0.04 H Absolute Neuts (auto) 6.0 Absolute Nucleated RBC 0.000 Nucleated RBC % 0.0 Sodium 133 L Potassium 3.9 Chloride 98 Carbon Dioxide 27 Anion Gap 8 BUN 26 H Creatinine 1.26 H Estim Creat Clear Calc 38 Estimated GFR 41 L Glucose 187 H Lactic Acid 1.1 Calcium 8.3 L Magnesium 2.0 Total Bilirubin 0.7 AST 23 ALT 16 Alkaline Phosphatase 75 Total Protein 6.4 Albumin 3.3 L Procalcitonin 3.8 Quality VTE Prophylaxis VTE prophylaxis: mechanical ordered (SCDs)
[2024-08-08] MEDS: SODIUM CHLORIDE 0.9% IV 1,000 ML 75 ML IV CONT (15:05)
--- NOTE | 2024-08-08 15:10 | PCPTNOTE ---
Attempted PT evaluation. Pt refused stating I'm tired! Nurse present for pt refusal. Will follow.
--- NOTE | 2024-08-08 19:00 | PC.NURSE ---
On 08/08/24, the MID LEVEL NET DEVELOPER, Magaly Nettles, provided care and completed epicurio documentation on this patient. I have reviewed the MID LEVEL NET DEVELOPER's documentation and agree with the findings.
[2024-08-08] MEDS: traZODone HCL 50 MG TABLET 100 MG PO (20:55)
[2024-08-08] MEDS: BENZONATATE 100 MG CAPSULE PO (20:55)
[2024-08-08] MEDS: guaiFENesin 12 HR 600 MG TABCR PO (20:55)
[2024-08-09] MEDS: DOXYCYCLINE 100 MG/NS 100 ML 100 MG/100 ML BAG IVPB ×2 (02:07→13:18)
[2024-08-09] MEDS: HYDROcodone/acetaminophen (*CRX) 5-325 MG TABLET 1 TAB PO ×4 (02:07→22:05)
[2024-08-09 05:36] VITALS: BP 123/40; PULSE 69; RESP 16; TEMP 36.6; O2SAT 94
[2024-08-09 07:10] LABS: Basophils Absolute Auto 0.1 K/mm3 (0.0-0.1); Basophils Percent Auto 0.8 % (0.2-1.2); Eosinophils Absolute Auto 0.2 K/mm3 (0-0.3); Eosinophils Percent Auto 3.2 % (0-4.4); Hematocrit 31.9 % (37.0-47.0); Immature Granulocyte Absolute 0.02 K/mm3 (0.00-0.031); Immature Granulocyte Percent A 0.3 % (0-0.5); Lymphocytes Absolute Auto 1.79 K/mm3 (0.9-3.2); Lymphocytes Percent Auto 28.6 % (18.3-44.2); Mean Corpuscular HGB Conc 31.3 g/dl (32-36); Mean Corpuscular Hemoglobin 30.2 pg (26-34); Mean Corpuscular Volume 96.4 fl (80-100); Mean Platelet Volume 10.6 fl (7.4-10.4); Monocytes Absolute Auto 0.8 K/mm3 (0.1-0.6); Monocytes Percent Auto 12.6 % (2.6-8.5); Neutrophils Absolute Auto 3.4 K/mm3 (1.3-6.7); Neutrophils Percent Auto 54.5 % (45.5-73.1); Platelet Count Result 153 k/mm3 (150-375); Red Blood Count 3.31 M/mm3 (4.2-5.4); Red Cell Distribution Width 12.6 % (11.5-14.5); White Blood Count 6.3 K/mm3 (4.5-10.0)
[2024-08-09 07:56] LABS: Alanine Aminotransferase 12 U/L (6-35); Albumin Level 2.7 g/dL (3.5-5.1); Alkaline Phosphatase 64 U/L (38-126); Anion Gap 4 mmol/L (4-12); Aspartate Amino Transferase 17 U/L (14-36); Bilirubin,Total 0.3 mg/dL (0.2-1.3); Blood Urea Nitrogen 19 mg/dL (7-17); Calcium 8.6 mg/dL (8.4-10.2); Carbon Dioxide 28 mmol/L (22-30); Chloride 104 mmol/L (98-107); Estimated CRCL calculation 53 ml/min; Estimated Glomerular Filt Rate 59; Glucose 131 mg/dL (65-110); Potassium 4.4 mmol/L (3.4-5.0); Sodium 136 mmol/L (137-145); Total Protein 5.4 g/dL (6.3-8.2)
--- NOTE | 2024-08-09 08:12 | P.CDI_ITS ---
CDI Query Clarification Request Patient with a BMI of 46.7 please provide a diagnosis to accompany this finding: * Overweight * Obesity * Morbid Obesity * Other/Unknown <Cris Walton RN - Last Filed: 08/09/24 08:12> Provider Comments Morbid obesity added <Dee Taveras APRN - Last Filed: 08/09/24 15:15>
[2024-08-09] MEDS: guaiFENesin 12 HR 600 MG TABCR PO ×2 (08:35→20:50)
[2024-08-09] MEDS: GABAPENTIN 300 MG CAPSULE PO ×3 (08:35→15:59)
--- NOTE | 2024-08-09 09:10 | PCOTNOTE ---
Attempted to complete OT evaluation. Pt. just worked with physical therapy and feels too tired to get up right now. Will continue to follow as able.
--- NOTE | 2024-08-09 10:45 | P.PNIM_ITS ---
Progress Note: A&P Assessment and Plan (1) Gram-negative bacteremia: Code(s): R78.81 - Bacteremia Status: Acute Assessment and Plan: * Blood cultures from 08/06 grew E coli, awaiting sensitivities. * 08/08 Blood cultures obtained, no growth to date. * Ceftriaxone 1 gram IVPB daily (2) Acute UTI: Code(s): N39.0 - Urinary tract infection, site not specified Status: Acute Assessment and Plan: * UA 08/06: Urine turbid, 1+ protein, 2+ blood, positive nitrate, 3+ leukocytes, RBC 11-20, WBC >100, 4+ bacteria. * Urine culture grew E coli. * Ceftriaxone 1 gram IVPB daily. * NS @ 75 ml/hr. * PT/OT. (3) Acute kidney injury superimposed on stage 3a chronic kidney disease: Code(s): N17.9 - Acute kidney failure, unspecified; N18.31 - Chronic kidney disease, stage 3a Status: Acute Assessment and Plan: * 08/08:BUN 26, Creatinine 1.26, and GFR 41. * 08/09: BUN 19, Creatinine 0.92, and GFR 59. * Hold Lisinopril and Meloxicam. (4) Pneumonia: Code(s): J18.9 - Pneumonia, unspecified organism Status: Acute Assessment and Plan: * Chest X-ray showed: bilateral pneumonia. * Doxycycline 100 mg IVPB q 12. * Incentive spirometer. * Duo neb q 6 PRN. * PT/OT. * Echocardiogram ordered. (5) Morbid obesity with BMI of 40.0-44.9, adult: Code(s): E66.01 - Morbid (severe) obesity due to excess calories; Z68.41 - Body mass index [BMI] 40.0-44.9, adult Status: Acute Assessment and Plan: * Heart healthy diet. * Encourage activity. Subjective Date/time seen: 08/09/24 10:45 Interval history: Patient sitting up in chair. Patient denies chest pain, palpitations, headache, dizziness, nausea, or vomiting. Review of Systems Review of Systems: All systems reviewed & are unremarkable except as noted in HPI and below Exam Resp: Effort & Inspection: normal respiratory effort Other: Slightly diminished. Cardio: Rate: regular rate Rhythm: regular rhythm GI: GI Palp: Yes Soft to palpation Auscultation: normal bowel sounds Neuro: Speech: normal speech Extrem: General: no pedal edema Psych: Mental Status: mental status grossly normal Affect: normal affect Objective Data Vital Signs Vital Signs: Vital Signs - 24 hr 08/08/24 14:00 08/08/24 20:51 08/08/24 21:10 Temperature 98.2 F 98.2 F Pulse Rate 75 85 84 Respiratory Rate 18 16 Blood Pressure 132/58 L 138/67 Pulse Oximetry 97 94 99 Oxygen Delivery Room Air Fraction of Inspired Oxygen 21 08/09/24 05:36 08/09/24 07:57 08/09/24 08:00 Temperature 97.8 F Pulse Rate 69 Respiratory Rate 16 Blood Pressure 123/40 L Pulse Oximetry 94 Oxygen Delivery Room Air Room Air Fraction of Inspired Oxygen Intake/Output Intake/Output: Intake & Output 08/06/24 08/07/24 08/08/24 08/09/24 23:59 23:59 23:59 23:59 Intake Total 2280 240 Balance 2280 240 Meds/Results Medications: Active Medications Generic Name Dose Route Start Last Admin Trade Name Freq PRN Reason Stop Dose Admin Acetaminophen 650 mg 08/08/24 00:22 Acetaminophen 325 Mg Tablet PO Q4H PRN Mild Pain (1-3) or Fever Hydrocodone Bitart/Acetaminophen 1 tab 08/08/24 04:17 08/09/24 08:39 Hydrocodone/Acetaminophen (*Crx) 5-325 Mg Tablet PO 1 tab Q6H PRN Administration pain (scale score 4-10 Albuterol/Ipratropium 3 ml 08/08/24 07:56 Ipratropium 0.5 Mg/Albuterol Sulfate 2.5 Mg Ampul.Neb 3 Ml INHALATION Q6HRT PRN Shortness of breath or wheezing Benzonatate 100 mg 08/08/24 19:16 08/08/24 20:55 Benzonatate 100 Mg Capsule PO 100 mg TID PRN Administration Cough Gabapentin 300 mg 08/08/24 09:00 08/09/24 08:35 Gabapentin 300 Mg Capsule PO 300 mg TID JENNIFER Administration Guaifenesin 600 mg 08/08/24 21:00 08/09/24 08:35 Guaifenesin 12 Hr 600 Mg Tabcr PO 600 mg Q12HR JENNIFER Administration Ceftriaxone Sodium 1 gm in 50 mls @ 100 mls/hr 08/09/24 00:00 08/08/24 23:40 Rocephin 1 Gm/Ns 50 Ml IVPB 100 mls/hr Q24H JENNIFER Administration Doxycycline Hyclate 100 mg in 100 mls @ 100 mls/hr 08/08/24 14:00 08/09/24 02:07 Vibramycin 100 Mg/Ns 100 Ml IVPB 100 mls/hr Q12H JENNIFER Administration Sodium Chloride 1,000 mls @ 75 mls/hr 08/08/24 01:40 08/09/24 09:13 Normal Saline Iv IV CONT Not Given .[id number] JENNIFER Ondansetron HCl 4 mg 08/08/24 00:22 Ondansetron Inj 4 Mg/2 Ml Vial IV PUSH Q4H PRN Nausea Perflutren Lipid Microsphere 0 ml 08/08/24 07:52 Perflutren Lipid Microspheres 1.5 Ml Vial Diluted To 10 Ml Total Volume IV PUSH 08/11/24 07:52 ONCE PRN adequate visualization Protocol Polyethylene Glycol 17 gm 08/08/24 04:18 Polyethylene Glycol 3350 17 Gm Powd.Pack PO DAILY PRN constipation Trazodone HCl 100 mg 08/08/24 21:00 08/08/24 20:55 Trazodone Hcl 50 Mg Tablet PO 100 mg HS JENNIFER Administration Labs Labs: Laboratory Results - last 24 hr 08/09/24 06:31 WBC 6.3 RBC 3.31 L Hgb 10.0 L Hct 31.9 L MCV 96.4 MCH 30.2 MCHC 31.3 L RDW 12.6 Plt Count 153 MPV 10.6 H Immature Gran % (Auto) 0.3 Neut % (Auto) 54.5 Lymph % (Auto) 28.6 [place] % (Auto) 12.6 H Eos % (Auto) 3.2 Baso % (Auto) 0.8 Lymph # (Auto) 1.79 [place] # (Auto) 0.8 H Eos # (Auto) 0.2 Baso # (Auto) 0.1 Abs Immat Gran (auto) 0.02 Absolute Neuts (auto) 3.4 Absolute Nucleated RBC 0.000 Nucleated RBC % 0.0 Sodium 136 L Potassium 4.4 Chloride 104 Carbon Dioxide 28 Anion Gap 4 BUN 19 H Creatinine 0.92 Estim Creat Clear Calc 53 Estimated GFR 59 Glucose 131 H Calcium 8.6 Total Bilirubin 0.3 AST 17 ALT 12 Alkaline Phosphatase 64 Total Protein 5.4 L Albumin 2.7 L Quality VTE Prophylaxis VTE prophylaxis: mechanical ordered (SCDs)
[2024-08-09 14:00] VITALS: BP 127/61; PULSE 81; RESP 18; TEMP 36.3; O2SAT 95
[2024-08-09 20:18] VITALS: BP 147/55; PULSE 69; RESP 18; TEMP 36.5; O2SAT 96
[2024-08-09] MEDS: traZODone HCL 50 MG TABLET 100 MG PO (20:50)
[2024-08-09] MEDS: BENZONATATE 100 MG CAPSULE PO (20:50)
[2024-08-10] MEDS: DOXYCYCLINE 100 MG/NS 100 ML 100 MG/100 ML BAG IVPB ×2 (01:21→13:52)
[2024-08-10 05:50] VITALS: BP 151/65; PULSE 79; RESP 16; TEMP 36.1; O2SAT 96
[2024-08-10 06:42] LABS: Basophils Absolute Auto 0.1 K/mm3 (0.0-0.1); Basophils Percent Auto 1.2 % (0.2-1.2); Eosinophils Absolute Auto 0.2 K/mm3 (0-0.3); Eosinophils Percent Auto 3.9 % (0-4.4); Hematocrit 34.8 % (37.0-47.0); Hemoglobin 10.6 g/dL (12.0-15.0); Immature Granulocyte Absolute 0.02 K/mm3 (0.00-0.031); Immature Granulocyte Percent A 0.4 % (0-0.5); Lymphocytes Absolute Auto 1.61 K/mm3 (0.9-3.2); Lymphocytes Percent Auto 28.6 % (18.3-44.2); Mean Corpuscular HGB Conc 30.5 g/dl (32-36); Mean Corpuscular Hemoglobin 29.8 pg (26-34); Mean Corpuscular Volume 97.8 fl (80-100); Mean Platelet Volume 10.2 fl (7.4-10.4); Monocytes Absolute Auto 0.7 K/mm3 (0.1-0.6); Monocytes Percent Auto 12.3 % (2.6-8.5); Neutrophils Percent Auto 53.6 % (45.5-73.1); Platelet Count Result 162 k/mm3 (150-375); Red Blood Count 3.56 M/mm3 (4.2-5.4); Red Cell Distribution Width 12.2 % (11.5-14.5); White Blood Count 5.6 K/mm3 (4.5-10.0)
[2024-08-10 07:12] LABS: Alanine Aminotransferase 12 U/L (6-35); Albumin Level 3.2 g/dL (3.5-5.1); Alkaline Phosphatase 70 U/L (38-126); Anion Gap 9 mmol/L (4-12); Aspartate Amino Transferase 19 U/L (14-36); Bilirubin,Total 0.3 mg/dL (0.2-1.3); Blood Urea Nitrogen 15 mg/dL (7-17); Calcium 8.7 mg/dL (8.4-10.2); Carbon Dioxide 23 mmol/L (22-30); Chloride 105 mmol/L (98-107); Estimated CRCL calculation 57 ml/min; Estimated Glomerular Filt Rate > 60; Glucose 152 mg/dL (65-110); Potassium 4.1 mmol/L (3.4-5.0); Sodium 137 mmol/L (137-145)
--- NOTE | 2024-08-10 09:28 | P.PNIM_ITS ---
Progress Note: A&P Assessment and Plan (1) Gram-negative bacteremia: Code(s): R78.81 - Bacteremia Status: Acute Assessment and Plan: * Blood cultures from 08/06 grew E coli, awaiting sensitivities. * 08/08 Blood cultures obtained, no growth to date. * Ceftriaxone 1 gram IVPB daily (2) Acute UTI: Code(s): N39.0 - Urinary tract infection, site not specified Status: Acute Assessment and Plan: UA 08/06: Urine turbid, 1+ protein, 2+ blood, positive nitrate, 3+ leukocytes, RBC 11-20, WBC >100, 4+ bacteria. * Urine culture grew E coli. * Ceftriaxone 1 gram IVPB daily. * NS @ 75 ml/hr. * PT/OT. (3) Acute kidney injury superimposed on stage 3a chronic kidney disease: Code(s): N17.9 - Acute kidney failure, unspecified; N18.31 - Chronic kidney disease, stage 3a Status: Acute Assessment and Plan: * 08/08:BUN 26, Creatinine 1.26, and GFR 41. * 08/09: BUN 19, Creatinine 0.92, and GFR 59. * Hold Lisinopril and Meloxicam. (4) Pneumonia: Code(s): J18.9 - Pneumonia, unspecified organism Status: Acute Assessment and Plan: * Chest X-ray showed: bilateral pneumonia. * Doxycycline 100 mg IVPB q 12. * Incentive spirometer. * Duo neb q 6 PRN. * PT/OT. * Echocardiogram ordered. (5) Morbid obesity with BMI of 40.0-44.9, adult: Code(s): E66.01 - Morbid (severe) obesity due to excess calories; Z68.41 - Body mass index [BMI] 40.0-44.9, adult Status: Acute Assessment and Plan: * Heart healthy diet. * Encourage activity. Time Spent With Patient Time: 52 minutes Subjective Date/time seen: 08/10/24 09:28 Interval history: Still not sure about apixaban cost but may consider warfarin if home INR's are covered. 08/08 Blood cultures 3 coli x2, 08/08 Blood cultures x2 no growth Review of Systems Review of Systems: 12 systems were reviewed with pertinent positives and negatives per HPI. Except as documented in the HPI, all other systems were reviewed and are negative. However review of systems is unreliable due to patient's confusion. All systems reviewed & are unremarkable except as noted in HPI and below Exam Narrative: General - Awake and alert. No acute distress Eyes - PERRLA, EOM intact ENT - No thrush, No erythema Neck - No noticeable or palpable swelling Lymph Nodes - No lymphadenopathy Cardiovascular - RRR no m/r/g, no JVD Lungs: Clear to auscultation, No wheezing, use of accessory muscles, no crackles Skin - Skin warm and dry, no wounds or rashes Abdomen - Normal bowel sounds, abdomen soft and nontender Extremities - No edema, cyanosis or clubbing Musculoskeletal - 5/5 strength, normal range of motion, no swollen or erythematous joints. Neurological ? Alert and oriented x 3, CN 2-12 grossly intact. Psych: Normal mood and affect Objective Data Vital Signs Vital Signs: Vital Signs - 24 hr 08/09/24 14:00 08/09/24 20:18 08/10/24 05:50 Temperature 97.4 F L 97.7 F 97.0 F L Pulse Rate 81 69 79 Respiratory Rate 18 18 16 Blood Pressure 127/61 147/55 H 151/65 H Pulse Oximetry 95 96 96 Oxygen Delivery 08/10/24 08:00 Temperature Pulse Rate Respiratory Rate Blood Pressure Pulse Oximetry Oxygen Delivery Room Air Intake/Output Intake/Output: Intake & Output 08/07/24 08/08/24 08/09/24 08/10/24 23:59 23:59 23:59 23:59 Intake Total 2280 970 100 Balance 2280 970 100 Meds/Results Medications: Active Medications Generic Name Dose Route Start Last Admin Trade Name Freq PRN Reason Stop Dose Admin Acetaminophen 650 mg 08/08/24 00:22 Acetaminophen 325 Mg Tablet PO Q4H PRN Mild Pain (1-3) or Fever Hydrocodone Bitart/Acetaminophen 1 tab 08/08/24 04:17 08/09/24 22:05 Hydrocodone/Acetaminophen (*Crx) 5-325 Mg Tablet PO 1 tab Q6H PRN Administration pain (scale score 4-10 Albuterol/Ipratropium 3 ml 08/08/24 07:56 Ipratropium 0.5 Mg/Albuterol Sulfate 2.5 Mg Ampul.Neb 3 Ml INHALATION Q6HRT PRN Shortness of breath or wheezing Benzonatate 100 mg 08/08/24 19:16 08/09/24 20:50 Benzonatate 100 Mg Capsule PO 100 mg TID PRN Administration Cough Gabapentin 300 mg 08/08/24 09:00 08/09/24 15:59 Gabapentin 300 Mg Capsule PO 300 mg TID JENNIFER Administration Guaifenesin 600 mg 08/08/24 21:00 08/09/24 20:50 Guaifenesin 12 Hr 600 Mg Tabcr PO 600 mg Q12HR JENNIFER Administration Ceftriaxone Sodium 1 gm in 50 mls @ 100 mls/hr 08/09/24 00:00 08/09/24 23:04 Rocephin 1 Gm/Ns 50 Ml IVPB 100 mls/hr Q24H JENNIFER Administration Doxycycline Hyclate 100 mg in 100 mls @ 100 mls/hr 08/08/24 14:00 08/10/24 02:21 Vibramycin 100 Mg/Ns 100 Ml IVPB Infused Q12H JENNIFER Infusion Sodium Chloride 1,000 mls @ 75 mls/hr 08/08/24 01:40 08/09/24 13:17 Normal Saline Iv IV CONT Not Given .[id number] JENNIFER Ondansetron HCl 4 mg 08/08/24 00:22 Ondansetron Inj 4 Mg/2 Ml Vial IV PUSH Q4H PRN Nausea Perflutren Lipid Microsphere 0 ml 08/08/24 07:52 Perflutren Lipid Microspheres 1.5 Ml Vial Diluted To 10 Ml Total Volume IV PUSH 08/11/24 07:52 ONCE PRN adequate visualization Protocol Polyethylene Glycol 17 gm 08/08/24 04:18 Polyethylene Glycol 3350 17 Gm Powd.Pack PO DAILY PRN constipation Trazodone HCl 100 mg 08/08/24 21:00 08/09/24 20:50 Trazodone Hcl 50 Mg Tablet PO 100 mg HS JENNIFER Administration Labs Labs: Laboratory Results - last 24 hr 08/10/24 06:08 WBC 5.6 RBC 3.56 L Hgb 10.6 L Hct 34.8 L MCV 97.8 MCH 29.8 MCHC 30.5 L RDW 12.2 Plt Count 162 MPV 10.2 Immature Gran % (Auto) 0.4 Neut % (Auto) 53.6 Lymph % (Auto) 28.6 [place] % (Auto) 12.3 H Eos % (Auto) 3.9 Baso % (Auto) 1.2 Lymph # (Auto) 1.61 [place] # (Auto) 0.7 H Eos # (Auto) 0.2 Baso # (Auto) 0.1 Abs Immat Gran (auto) 0.02 Absolute Neuts (auto) 3.0 Absolute Nucleated RBC 0.000 Nucleated RBC % 0.0 Sodium 137 Potassium 4.1 Chloride 105 Carbon Dioxide 23 Anion Gap 9 BUN 15 Creatinine 0.84 Estim Creat Clear Calc 57 Estimated GFR > 60 Glucose 152 H Calcium 8.7 Total Bilirubin 0.3 AST 19 ALT 12 Alkaline Phosphatase 70 Total Protein 6.0 L Albumin 3.2 L Quality VTE Prophylaxis VTE prophylaxis: mechanical ordered (SCDs) Hospitalist MIPS Advance Care Plan I have confirmed that the patient's Advanced Care Plan is present, code status is documented, or surrogate decision maker is listed in patient medical record.: Yes Medication Reconciliation I have utilized all available resources to obtain, update and review the patients current medications (includes all prescriptions, OTC, herbals, cannabis, and nutritional supplements).: Yes
[2024-08-10] MEDS: guaiFENesin 12 HR 600 MG TABCR PO ×2 (10:27→20:17)
[2024-08-10] MEDS: GABAPENTIN 300 MG CAPSULE PO ×3 (10:27→16:30)
[2024-08-10] MEDS: SODIUM CHLORIDE 0.9% IV 1,000 ML 75 ML IV CONT (10:29)
[2024-08-10] MEDS: HYDROcodone/acetaminophen (*CRX) 5-325 MG TABLET 1 TAB PO ×2 (11:07→21:35)
--- NOTE | 2024-08-10 13:48 | PCOTNOTE ---
Pt refused getting up for therapy at this time. Pt reports I haven't slept and also reports R shoulder pain and is asking for a pain pill however RN informs that pt was already given a pain pill. Pt educated on importance of getting out of bed and possibility of changing position to help with shoulder pain but pt continues to refuse despite education.
[2024-08-10 14:00] VITALS: BP 123/35; PULSE 81; RESP 18; TEMP 36.3; O2SAT 95
--- NOTE | 2024-08-10 18:18 | PM.IMPN ---
Subjective Date/time seen: 08/10/24 18:18 Objective Data Vital Signs Vital Signs: Vital Signs - 24 hr 08/09/24 20:18 08/10/24 05:50 08/10/24 08:00 Temperature 97.7 F 97.0 F L Pulse Rate 69 79 Respiratory Rate 18 16 Blood Pressure 147/55 H 151/65 H Pulse Oximetry 96 96 Oxygen Delivery Room Air 08/10/24 14:00 Temperature 97.3 F L Pulse Rate 81 Respiratory Rate 18 Blood Pressure 123/35 L Pulse Oximetry 95 Oxygen Delivery Intake/Output Intake/Output: Intake & Output 08/07/24 08/08/24 08/09/24 08/10/24 23:59 23:59 23:59 23:59 Intake Total 2279 Output Total 1799 Balance 2279 2019 - Meds/Results Medications: Active Medications Generic Name Dose Route Start Last Admin Trade Name Freq PRN Reason Stop Dose Admin Acetaminophen 650 mg 08/08/24 00:22 Acetaminophen 325 Mg Tablet PO Q4H PRN Mild Pain (1-3) or Fever Hydrocodone Bitart/Acetaminophen 1 tab 08/08/24 04:17 08/10/24 11:07 Hydrocodone/Acetaminophen (*Crx) 5-325 Mg Tablet PO 1 tab Q6H PRN Administration pain (scale score 4-10 Albuterol/Ipratropium 3 ml 08/08/24 07:56 Ipratropium 0.5 Mg/Albuterol Sulfate 2.5 Mg Ampul.Neb 3 Ml INHALATION Q6HRT PRN Shortness of breath or wheezing Benzonatate 100 mg 08/08/24 19:16 08/09/24 20:50 Benzonatate 100 Mg Capsule PO 100 mg TID PRN Administration Cough Gabapentin 300 mg 08/08/24 09:00 08/10/24 16:30 Gabapentin 300 Mg Capsule PO 300 mg TID JENNIFER Administration Guaifenesin 600 mg 08/08/24 21:00 08/10/24 10:27 Guaifenesin 12 Hr 600 Mg Tabcr PO 600 mg Q12HR JENNIFER Administration Sodium Chloride 1,000 mls @ 75 mls/hr 08/08/24 01:40 08/10/24 17:25 Normal Saline Iv IV CONT Not Given .[id number] JENNIFER Levofloxacin 750 mg 08/10/24 21:00 Levofloxacin 750 Mg Tablet PO 08/15/24 21:01 QHS JENNIFER Ondansetron HCl 4 mg 08/08/24 00:22 Ondansetron Inj 4 Mg/2 Ml Vial IV PUSH Q4H PRN Nausea Perflutren Lipid Microsphere 0 ml 08/08/24 07:52 Perflutren Lipid Microspheres 1.5 Ml Vial Diluted To 10 Ml Total Volume IV PUSH 08/11/24 07:52 ONCE PRN adequate visualization Protocol Polyethylene Glycol 17 gm 08/08/24 04:18 Polyethylene Glycol 3350 17 Gm Powd.Pack PO DAILY PRN constipation Trazodone HCl 100 mg 08/08/24 21:00 08/09/24 20:50 Trazodone Hcl 50 Mg Tablet PO 100 mg HS [facility] Administration Labs Labs: Laboratory Results - last 24 hr 08/10/24 06:08 WBC 5.6 RBC 3.56 L Hgb 10.6 L Hct 34.8 L MCV 97.8 MCH 29.8 MCHC 30.5 L RDW 12.2 Plt Count 162 MPV 10.2 Immature Gran % (Auto) 0.4 Neut % (Auto) 53.6 Lymph % (Auto) 28.6 [place] % (Auto) 12.3 H Eos % (Auto) 3.9 Baso % (Auto) 1.2 Lymph # (Auto) 1.61 [place] # (Auto) 0.7 H Eos # (Auto) 0.2 Baso # (Auto) 0.1 Abs Immat Gran (auto) 0.02 Absolute Neuts (auto) 3.0 Absolute Nucleated RBC 0.000 Nucleated RBC % 0.0 Sodium 137 Potassium 4.1 Chloride 105 Carbon Dioxide 23 Anion Gap 9 BUN 15 Creatinine 0.84 Estim Creat Clear Calc 57 Estimated GFR > 60 Glucose 152 H Calcium 8.7 Total Bilirubin 0.3 AST 19 ALT 12 Alkaline Phosphatase 70 Total Protein 6.0 L Albumin 3.2 L
[2024-08-10] MEDS: KETOROLAC 15 MG/ML VIAL (*BKC) IV PUSH (18:38)
[2024-08-10] MEDS: traZODone HCL 50 MG TABLET 100 MG PO (20:18)
[2024-08-10] MEDS: levoFLOXacin 750 MG TABLET PO (20:18)
[2024-08-10 20:59] VITALS: BP 156/64; PULSE 86; RESP 24; TEMP 36.6; O2SAT 93
--- NOTE | 2024-08-10 23:18 | PC.NURSE ---
On 08/10/24, the Graduate Nurse, Erum, provided care and completed [email or web address] documentation on this patient with me at her side and available for questions. I have reviewed Erum's documentation and agree with the findings.
[2024-08-11] MEDS: KETOROLAC 15 MG/ML VIAL (*BKC) IV PUSH ×5 (00:16→23:47)
[2024-08-11] MEDS: SODIUM CHLORIDE 0.9% IV 1,000 ML 75 ML IV CONT (02:39)
[2024-08-11] MEDS: BENZONATATE 100 MG CAPSULE PO ×3 (05:52→22:17)
[2024-08-11 06:00] VITALS: BP 143/70; PULSE 72; RESP 20; TEMP 35.9; O2SAT 96
[2024-08-11 06:47] LABS: Basophils Absolute Auto 0.1 K/mm3 (0.0-0.1); Eosinophils Absolute Auto 0.3 K/mm3 (0-0.3); Eosinophils Percent Auto 4.5 % (0-4.4); Hemoglobin 10.4 g/dL (12.0-15.0); Immature Granulocyte Absolute 0.03 K/mm3 (0.00-0.031); Immature Granulocyte Percent A 0.5 % (0-0.5); Lymphocytes Absolute Auto 1.72 K/mm3 (0.9-3.2); Lymphocytes Percent Auto 28.9 % (18.3-44.2); Mean Corpuscular HGB Conc 31.5 g/dl (32-36); Mean Corpuscular Hemoglobin 29.9 pg (26-34); Mean Corpuscular Volume 94.8 fl (80-100); Mean Platelet Volume 10.2 fl (7.4-10.4); Monocytes Absolute Auto 0.7 K/mm3 (0.1-0.6); Monocytes Percent Auto 10.9 % (2.6-8.5); Neutrophils Absolute Auto 3.2 K/mm3 (1.3-6.7); Neutrophils Percent Auto 54.2 % (45.5-73.1); Platelet Count Result 168 k/mm3 (150-375); Red Blood Count 3.48 M/mm3 (4.2-5.4); Red Cell Distribution Width 12.3 % (11.5-14.5)
[2024-08-11 07:05] LABS: Alanine Aminotransferase 11 U/L (6-35); Alkaline Phosphatase 65 U/L (38-126); Anion Gap 5 mmol/L (4-12); Aspartate Amino Transferase 18 U/L (14-36); Bilirubin,Total 0.4 mg/dL (0.2-1.3); Blood Urea Nitrogen 17 mg/dL (7-17); Calcium 8.5 mg/dL (8.4-10.2); Carbon Dioxide 25 mmol/L (22-30); Chloride 104 mmol/L (98-107); Estimated CRCL calculation 50 ml/min; Estimated Glomerular Filt Rate 56; Glucose 135 mg/dL (65-110); Potassium 4.5 mmol/L (3.4-5.0); Sodium 134 mmol/L (137-145); Total Protein 5.9 g/dL (6.3-8.2)
[2024-08-11 07:25] LABS: Iron 113 ug/dL (37-170)
[2024-08-11 07:35] LABS: Percent Iron Saturation 47 % (20-50)
[2024-08-11] MEDS: GABAPENTIN 300 MG CAPSULE PO ×3 (10:34→16:34)
[2024-08-11] MEDS: guaiFENesin 12 HR 600 MG TABCR PO ×2 (10:34→20:46)
[2024-08-11 14:00] VITALS: BP 161/79; PULSE 84; RESP 18; TEMP 36.1; O2SAT 97
--- NOTE | 2024-08-11 18:22 | P.PNIM_ITS ---
Progress Note: A&P Assessment and Plan (1) Gram-negative bacteremia: Code(s): R78.81 - Bacteremia Status: Acute Assessment and Plan: * Blood cultures from 08/06 grew E coli, resistant to Unasyn and Augmentin * 08/08 Blood cultures obtained, no growth to date. * Ceftriaxone 1 gram IVPB daily (2) Acute UTI: Code(s): N39.0 - Urinary tract infection, site not specified Status: Acute Assessment and Plan: UA 08/06: Urine turbid, 1+ protein, 2+ blood, positive nitrate, 3+ leukocytes, RBC 11-20, WBC >100, 4+ bacteria. * Urine culture grew E coli. * Ceftriaxone 1 gram IVPB daily, changed to levaquin and monitoring * NS @ 75 ml/hr. * PT/OT. (3) Acute kidney injury superimposed on stage 3a chronic kidney disease: Code(s): N17.9 - Acute kidney failure, unspecified; N18.31 - Chronic kidney disease, stage 3a Status: Acute Assessment and Plan: * 08/08:BUN 26, Creatinine 1.26, and GFR 41. * 08/09: BUN 19, Creatinine 0.92, and GFR 59. * Hold Lisinopril and Meloxicam. (4) Pneumonia: Code(s): J18.9 - Pneumonia, unspecified organism Status: Acute Assessment and Plan: * Chest X-ray showed: bilateral pneumonia. * Doxycycline 100 mg IVPB q 12. * Incentive spirometer. * Duo neb q 6 PRN. * PT/OT. * Echocardiogram ordered. (5) Morbid obesity with BMI of 40.0-44.9, adult: Code(s): E66.01 - Morbid (severe) obesity due to excess calories; Z68.41 - Body mass index [BMI] 40.0-44.9, adult Status: Acute Assessment and Plan: * Heart healthy diet. * Encourage activity. (6) Shoulder pain: Code(s): M25.519 - Pain in unspecified shoulder Status: Acute Assessment and Plan: No falls. Possibly pulled during activity --improved today with scheduled Toradol ---likely switch to naproxen tomorrow --imaging if does not continue to resolve Time Spent With Patient Time: 48 minutes Subjective Date/time seen: 08/11/24 18:22 Interval history: Vital signs stable. Blood pressure above goal intermittently getting up in a chair during the day but feels fatigued 08/06 Blood cultures 3 coli x2, 08/08 Blood cultures x2 no growth On room air Shoulder pain improved with Toradol Review of Systems Review of Systems: 12 systems were reviewed with pertinent positives and negatives per HPI. Except as documented in the HPI, all other systems were reviewed and are negative. However review of systems is unreliable due to patient's confusion. All systems reviewed & are unremarkable except as noted in HPI and below Exam Narrative: General - Awake and alert. No acute distress Eyes - PERRLA, EOM intact ENT - No thrush, No erythema Neck - No noticeable or palpable swelling Lymph Nodes - No lymphadenopathy Cardiovascular - RRR no m/r/g, no JVD Lungs: Clear to auscultation, No wheezing, use of accessory muscles Skin - Skin warm and dry, no wounds or rashes Abdomen - Normal bowel sounds, abdomen soft and nontender, obese Extremities - No edema, cyanosis or clubbing Musculoskeletal - 5/5 strength, normal range of motion, no swollen or erythematous joints. Neurological ? Alert and oriented x 3, CN 2-12 grossly intact. Psych: Normal mood and affect Objective Data Vital Signs Vital Signs: Vital Signs - 24 hr 08/10/24 20:00 08/10/24 20:59 08/11/24 06:00 Temperature 97.9 F 96.6 F L Pulse Rate 86 72 Respiratory Rate 24 H 20 Blood Pressure 156/64 H 143/70 H Pulse Oximetry 93 96 Oxygen Delivery Room Air 08/11/24 10:34 08/11/24 10:45 08/11/24 13:59 Temperature Pulse Rate Respiratory Rate Blood Pressure Pulse Oximetry Oxygen Delivery Room Air Room Air Room Air 08/11/24 14:00 Temperature 97.0 F L Pulse Rate 84 Respiratory Rate 18 Blood Pressure 161/79 H Pulse Oximetry 97 Oxygen Delivery Intake/Output Intake/Output: Intake & Output 08/08/24 08/09/24 08/10/24 08/11/24 23:59 23:59 23:59 23:59 Intake Total 2279 2019 820 8 Output Total 1800 1875 Balance 2279 2019 -980 173 Meds/Results Medications: Active Medications Generic Name Dose Route Start Last Admin Trade Name Freq PRN Reason Stop Dose Admin Acetaminophen 650 mg 08/08/24 00:22 Acetaminophen 325 Mg Tablet PO Q4H PRN Mild Pain (1-3) or Fever Hydrocodone Bitart/Acetaminophen 1 tab 08/08/24 04:17 08/10/24 21:35 Hydrocodone/Acetaminophen (*Crx) 5-325 Mg Tablet PO 1 tab Q6H PRN Administration pain (scale score 4-10 Albuterol/Ipratropium 3 ml 08/08/24 07:56 Ipratropium 0.5 Mg/Albuterol Sulfate 2.5 Mg Ampul.Neb 3 Ml INHALATION Q6HRT PRN Shortness of breath or wheezing Benzonatate 100 mg 08/08/24 19:16 08/11/24 13:56 Benzonatate 100 Mg Capsule PO 100 mg TID PRN Administration Cough Gabapentin 300 mg 08/08/24 09:00 08/11/24 16:34 Gabapentin 300 Mg Capsule PO 300 mg TID JENNIFER Administration Guaifenesin 600 mg 08/08/24 21:00 08/11/24 10:34 Guaifenesin 12 Hr 600 Mg Tabcr PO 600 mg Q12HR JENNIFER Administration Ketorolac Tromethamine 15 mg 08/10/24 18:25 08/11/24 17:37 Ketorolac 15 Mg/Ml Vial (*Bkc) IV PUSH 15 mg Q6HR JENNIFER Administration Levofloxacin 750 mg 08/10/24 21:00 08/10/24 20:18 Levofloxacin 750 Mg Tablet PO 08/15/24 21:01 750 mg QHS JENNIFER Administration Ondansetron HCl 4 mg 08/08/24 00:22 Ondansetron Inj 4 Mg/2 Ml Vial IV PUSH Q4H PRN Nausea Polyethylene Glycol 17 gm 08/08/24 04:18 Polyethylene Glycol 3350 17 Gm Powd.Pack PO DAILY PRN constipation Trazodone HCl 100 mg 08/08/24 21:00 08/10/24 20:18 Trazodone Hcl 50 Mg Tablet PO 100 mg HS JENNIFER Administration Labs Labs: Laboratory Results - last 24 hr 08/11/24 06:04 WBC 6.0 RBC 3.48 L Hgb 10.4 L Hct 33.0 L MCV 94.8 MCH 29.9 MCHC 31.5 L RDW 12.3 Plt Count 168 MPV 10.2 Immature Gran % (Auto) 0.5 Neut % (Auto) 54.2 Lymph % (Auto) 28.9 [place] % (Auto) 10.9 H Eos % (Auto) 4.5 H Baso % (Auto) 1.0 Lymph # (Auto) 1.72 [place] # (Auto) 0.7 H Eos # (Auto) 0.3 Baso # (Auto) 0.1 Abs Immat Gran (auto) 0.03 Absolute Neuts (auto) 3.2 Absolute Nucleated RBC 0.000 Nucleated RBC % 0.0 Sodium 134 L Potassium 4.5 Chloride 104 Carbon Dioxide 25 Anion Gap 5 BUN 17 Creatinine 0.96 Estim Creat Clear Calc 50 Estimated GFR 56 L Glucose 135 H Calcium 8.5 Iron 113 TIBC 238 L % Saturation 47 Ferritin 69.20 Total Bilirubin 0.4 AST 18 ALT 11 Alkaline Phosphatase 65 Total Protein 5.9 L Albumin 3.0 L Vitamin B12 261.0 Quality VTE Prophylaxis VTE prophylaxis: mechanical ordered (SCDs)
[2024-08-11 19:56] VITALS: BP 177/63; PULSE 82; RESP 20; TEMP 36.6; O2SAT 95
[2024-08-11] MEDS: traZODone HCL 50 MG TABLET 100 MG PO (20:46)
[2024-08-11] MEDS: levoFLOXacin 750 MG TABLET PO (20:47)
[2024-08-11 21:35] VITALS: O2SAT 96
[2024-08-12] MEDS: BENZOCAINE/MENTHOL (*BKC) 18 EA LOZENGE 1 LOZENGE PO (01:22)
[2024-08-12 05:28] VITALS: BP 167/81; PULSE 75; RESP 18; TEMP 36.5; O2SAT 97
[2024-08-12] MEDS: KETOROLAC 15 MG/ML VIAL (*BKC) IV PUSH (06:30)
--- NOTE | 2024-08-12 07:20 | P.PNIM_ITS ---
Progress Note: A&P Assessment and Plan (1) Gram-negative bacteremia: Code(s): R78.81 - Bacteremia Status: Acute Assessment and Plan: * Blood cultures from 08/06 grew E coli, resistant to Unasyn and Augmentin * 08/08 Blood cultures obtained, no growth to date. * Ceftriaxone 1 gram IVPB daily--now on Levaquin (2) Acute UTI: Code(s): N39.0 - Urinary tract infection, site not specified Status: Acute Assessment and Plan: UA 08/06: Urine turbid, 1+ protein, 2+ blood, positive nitrate, 3+ leukocytes, RBC 11-20, WBC >100, 4+ bacteria. * Urine culture grew E coli. * Ceftriaxone 1 gram IVPB daily completed * NS @ 75 ml/hr--stopped * PT/OT. (3) Acute kidney injury superimposed on stage 3a chronic kidney disease: Code(s): N17.9 - Acute kidney failure, unspecified; N18.31 - Chronic kidney disease, stage 3a Status: Acute Assessment and Plan: * 08/08:BUN 26, Creatinine 1.26, and GFR 41. * 08/09: BUN 19, Creatinine 0.92, and GFR 59. * Hold Lisinopril and Meloxicam. Change to losartan * Low dose NSAIDs for a short course for severe pain (4) Pneumonia: Code(s): J18.9 - Pneumonia, unspecified organism Status: Acute Assessment and Plan: * Chest X-ray showed: bilateral pneumonia. * Doxycycline 100 mg IVPB q 12, now on levaquin * Incentive spirometer. * Duo neb q 6 PRN. * PT/OT. * Echocardiogram ordered. (5) Morbid obesity with BMI of 40.0-44.9, adult: Code(s): E66.01 - Morbid (severe) obesity due to excess calories; Z68.41 - Body mass index [BMI] 40.0-44.9, adult Status: Acute Assessment and Plan: * Changed diet to regular * Encourage activity. * Lead Fire Protection Engineer consult (6) Shoulder pain: Code(s): M25.519 - Pain in unspecified shoulder Status: Acute Assessment and Plan: No falls. Possibly pulled during activity. --improved today with scheduled Toradol 15, change to Naproxen 375mg BID with meals. Short course only, then low dose prn with mild CKD --imaging if does not continue to resolve (7) Hyponatremia: Code(s): E87.1 - Hypo-osmolality and hyponatremia Status: Acute Assessment and Plan: 137>134>128 --Repeat BMP this afternoon with osmo --Urine osmo, na --Liberalize diet (instead of low sodium) Time Spent With Patient Time: 35 minutes Subjective Date/time seen: 08/12/24 07:20 Interval history: Sodium low 134>128 this morning. Having chills and a strong cough. No shortness of breath No nausea or diarrhea BP elevated. Start losartan Labs pending 08/06 Blood cultures 3 coli x2, 08/08 Blood cultures x2 no growth Review of Systems Review of Systems: 12 systems were reviewed with pertinent positives and negatives per HPI. Except as documented in the HPI, all other systems were reviewed and are negative. However review of systems is unreliable due to patient's confusion. All systems reviewed & are unremarkable except as noted in HPI and below Exam Narrative: General - Awake and alert. No acute distress Eyes - PERRLA, EOM intact ENT - No thrush, No erythema Neck - No noticeable or palpable swelling Lymph Nodes - No lymphadenopathy Cardiovascular - RRR no m/r/g, no JVD Lungs: Clear to auscultation, No wheezing, use of accessory muscles Skin - Skin warm and dry, no wounds or rashes Abdomen - Normal bowel sounds, abdomen soft and nontender, obese Extremities - No edema, cyanosis or clubbing Musculoskeletal - 5/5 strength, normal range of motion, no swollen or erythe matous joints. Neurological ? Alert and oriented x 3, CN 2-12 grossly intact. Psych: Normal mood and affect Objective Data Vital Signs Vital Signs: Vital Signs - 24 hr 08/11/24 10:34 08/11/24 10:45 08/11/24 13:59 Temperature Pulse Rate Respiratory Rate Blood Pressure Pulse Oximetry Oxygen Delivery Room Air Room Air Room Air 08/11/24 14:00 08/11/24 19:56 08/11/24 21:35 Temperature 97.0 F L 97.8 F Pulse Rate 84 82 Respiratory Rate 18 20 Blood Pressure 161/79 H 177/63 H Pulse Oximetry 97 95 96 Oxygen Delivery Room Air 08/12/24 05:28 Temperature 97.7 F Pulse Rate 75 Respiratory Rate 18 Blood Pressure 167/81 H Pulse Oximetry 97 Oxygen Delivery Intake/Output Intake/Output: Intake & Output 08/09/24 08/10/24 08/11/24 08/12/24 23:59 23:59 23:59 23:59 Intake Total 2019 820 2048 2375 Output Total 1800 1875 1600 Balance 2019 173 775 Meds/Results Medications: Active Medications Generic Name Dose Route Start Last Admin Trade Name Freq PRN Reason Stop Dose Admin Acetaminophen 650 mg 08/08/24 00:22 Acetaminophen 325 Mg Tablet PO Q4H PRN Mild Pain (1-3) or Fever Hydrocodone Bitart/Acetaminophen 1 tab 08/08/24 04:17 08/10/24 21:35 Hydrocodone/Acetaminophen (*Crx) 5-325 Mg Tablet PO 1 tab Q6H PRN Administration pain (scale score 4-10 Albuterol/Ipratropium 3 ml 08/08/24 07:56 Ipratropium 0.5 Mg/Albuterol Sulfate 2.5 Mg Ampul.Neb 3 Ml INHALATION Q6HRT PRN Shortness of breath or wheezing Benzocaine 1 lozenge 08/12/24 01:01 08/12/24 01:22 Benzocaine/Menthol (*Bkc) 18 Ea Lozenge PO 1 lozenge PRN PRN Administration Sore Throat Benzonatate 100 mg 08/08/24 19:16 08/11/24 22:17 Benzonatate 100 Mg Capsule PO 100 mg TID PRN Administration Cough Gabapentin 300 mg 08/08/24 09:00 08/11/24 16:34 Gabapentin 300 Mg Capsule PO 300 mg TID JENNIFER Administration Guaifenesin 600 mg 08/08/24 21:00 08/11/24 20:46 Guaifenesin 12 Hr 600 Mg Tabcr PO 600 mg Q12HR JENNIFER Administration Ketorolac Tromethamine 15 mg 08/10/24 18:25 08/12/24 06:30 Ketorolac 15 Mg/Ml Vial (*Bkc) IV PUSH 15 mg Q6HR JENNIFER Administration Levofloxacin 750 mg 08/10/24 21:00 08/11/24 20:47 Levofloxacin 750 Mg Tablet PO 08/15/24 21:01 750 mg QHS JENNIFER Administration Ondansetron HCl 4 mg 08/08/24 00:22 Ondansetron Inj 4 Mg/2 Ml Vial IV PUSH Q4H PRN Nausea Polyethylene Glycol 17 gm 08/08/24 04:18 Polyethylene Glycol 3350 17 Gm Powd.Pack PO DAILY PRN constipation Trazodone HCl 100 mg 08/08/24 21:00 08/11/24 20:46 Trazodone Hcl 50 Mg Tablet PO 100 mg HS JENNIFER Administration Labs Labs: Laboratory Results - last 24 hr 08/11/24 06:04 Iron 113 TIBC 238 L % Saturation 47 Ferritin 69.20 Vitamin B12 261.0 Quality VTE Prophylaxis VTE prophylaxis: mechanical ordered (SCDs) Hospitalist MIPS Advance Care Plan I have confirmed that the patient's Advanced Care Plan is present, code status is documented, or surrogate decision maker is listed in patient medical record.: Yes Medication Reconciliation I have utilized all available resources to obtain, update and review the patients current medications (includes all prescriptions, OTC, herbals, cannabis, and nutritional supplements).: Yes
[2024-08-12 07:32] LABS: Basophils Absolute Auto 0.1 K/mm3 (0.0-0.1); Basophils Percent Auto 0.6 % (0.2-1.2); Eosinophils Absolute Auto 0.3 K/mm3 (0-0.3); Eosinophils Percent Auto 3.2 % (0-4.4); Hematocrit 33.5 % (37.0-47.0); Hemoglobin 10.8 g/dL (12.0-15.0); Immature Granulocyte Absolute 0.06 K/mm3 (0.00-0.031); Immature Granulocyte Percent A 0.7 % (0-0.5); Lymphocytes Absolute Auto 2.25 K/mm3 (0.9-3.2); Lymphocytes Percent Auto 24.9 % (18.3-44.2); Mean Corpuscular HGB Conc 32.2 g/dl (32-36); Mean Corpuscular Hemoglobin 30.2 pg (26-34); Mean Corpuscular Volume 93.6 fl (80-100); Mean Platelet Volume 10.2 fl (7.4-10.4); Monocytes Absolute Auto 0.8 K/mm3 (0.1-0.6); Monocytes Percent Auto 8.3 % (2.6-8.5); Neutrophils Absolute Auto 5.6 K/mm3 (1.3-6.7); Neutrophils Percent Auto 62.3 % (45.5-73.1); Platelet Count Result 188 k/mm3 (150-375); Red Blood Count 3.58 M/mm3 (4.2-5.4); Red Cell Distribution Width 11.9 % (11.5-14.5)
[2024-08-12 07:56] LABS: Alanine Aminotransferase 10 U/L (6-35); Albumin Level 3.1 g/dL (3.5-5.1); Alkaline Phosphatase 68 U/L (38-126); Anion Gap 6 mmol/L (4-12); Aspartate Amino Transferase 21 U/L (14-36); Bilirubin,Total 0.5 mg/dL (0.2-1.3); Blood Urea Nitrogen 18 mg/dL (7-17); Calcium 8.7 mg/dL (8.4-10.2); Carbon Dioxide 24 mmol/L (22-30); Chloride 98 mmol/L (98-107); Estimated CRCL calculation 51 ml/min; Estimated Glomerular Filt Rate 58; Glucose 128 mg/dL (65-110); Sodium 128 mmol/L (137-145)
[2024-08-12] MEDS: LOSARTAN POTASSIUM 25 MG TABLET PO (09:32)
[2024-08-12] MEDS: GABAPENTIN 300 MG CAPSULE PO ×3 (09:33→16:14)
[2024-08-12] MEDS: guaiFENesin 12 HR 600 MG TABCR PO ×2 (09:33→22:26)
[2024-08-12] MEDS: NAPROXEN 375 MG TABLET PO ×2 (12:13→16:14)
[2024-08-12 13:56] LABS: Add Urine Microscopic? YES; Appearance Urine Clear (Clear); Bacteria Urine None Seen /hpf; Bilirubin Urine Negative (Negative); Blood Urine Trace (Negative); Color Urine Yellow (Yellow); Glucose Urine UA Negative (Negative); Ketones Urine Negative (Negative); Leukocyte Esterase Ur 3+ LEU/UL (Negative); Nitrate Urine Negative (Negative); Non Pathogenic Casts 0-2; Protein Urine Negative (Negative); Sodium Urine Random 101 meq/L; Specific Grav Ur 1.009 (1.001-1.035); Squamous Epithelial Cell Urine Occasional /hpf (Few); Urobilinogen Urine 0.2 mg/dL (<2.0); WBC Urine 51-100 /hpf (0-3); pH Urine 6.5 (5.0-9.0)
[2024-08-12 13:57] LABS: Sodium Urine Random 101 meq/L
[2024-08-12 14:00] VITALS: BP 102/64; PULSE 79; RESP 16; TEMP 36.9; O2SAT 97
[2024-08-12 16:50] LABS: Anion Gap 7 mmol/L (4-12); Blood Urea Nitrogen 16 mg/dL (7-17); Calcium 8.6 mg/dL (8.4-10.2); Carbon Dioxide 26 mmol/L (22-30); Chloride 95 mmol/L (98-107); Estimated CRCL calculation 50 ml/min; Estimated Glomerular Filt Rate 56; Glucose 184 mg/dL (65-110); Potassium 4.4 mmol/L (3.4-5.0); Sodium 128 mmol/L (137-145)
[2024-08-12 20:00] VITALS: PULSE 71; RESP 20; O2SAT 95
[2024-08-12 20:05] VITALS: BP 158/80; PULSE 83; RESP 18; TEMP 36.7; O2SAT 96
[2024-08-12] MEDS: traZODone HCL 50 MG TABLET 100 MG PO (22:26)
[2024-08-12] MEDS: levoFLOXacin 750 MG TABLET PO (22:27)
[2024-08-13] MEDS: BENZONATATE 100 MG CAPSULE PO ×2 (02:38→12:20)
[2024-08-13 04:25] VITALS: BP 143/80; PULSE 71; RESP 20; TEMP 35.8; O2SAT 95
[2024-08-13 06:34] LABS: Basophils Absolute Auto 0.1 K/mm3 (0.0-0.1); Basophils Percent Auto 0.7 % (0.2-1.2); Eosinophils Absolute Auto 0.3 K/mm3 (0-0.3); Eosinophils Percent Auto 3.1 % (0-4.4); Hematocrit 33.3 % (37.0-47.0); Immature Granulocyte Absolute 0.04 K/mm3 (0.00-0.031); Immature Granulocyte Percent A 0.4 % (0-0.5); Lymphocytes Absolute Auto 2.05 K/mm3 (0.9-3.2); Lymphocytes Percent Auto 19.4 % (18.3-44.2); Mean Corpuscular Volume 90.7 fl (80-100); Mean Platelet Volume 9.9 fl (7.4-10.4); Monocytes Absolute Auto 0.8 K/mm3 (0.1-0.6); Monocytes Percent Auto 7.6 % (2.6-8.5); Neutrophils Absolute Auto 7.3 K/mm3 (1.3-6.7); Neutrophils Percent Auto 68.8 % (45.5-73.1); Platelet Count Result 209 k/mm3 (150-375); Red Blood Count 3.67 M/mm3 (4.2-5.4); White Blood Count 10.6 K/mm3 (4.5-10.0)
[2024-08-13 07:00] LABS: Potassium 3.9 mmol/L (3.4-5.0)
[2024-08-13 07:01] LABS: Alanine Aminotransferase 10 U/L (6-35); Albumin Level 3.1 g/dL (3.5-5.1); Alkaline Phosphatase 72 U/L (38-126); Anion Gap 6 mmol/L (4-12); Aspartate Amino Transferase 18 U/L (14-36); Bilirubin,Total 0.6 mg/dL (0.2-1.3); Blood Urea Nitrogen 15 mg/dL (7-17); Calcium 8.7 mg/dL (8.4-10.2); Carbon Dioxide 26 mmol/L (22-30); Chloride 96 mmol/L (98-107); Estimated CRCL calculation 54 ml/min; Estimated Glomerular Filt Rate > 60; Glucose 131 mg/dL (65-110); Sodium 128 mmol/L (137-145)
--- NOTE | 2024-08-13 07:26 | P.PNIM_ITS ---
Progress Note: A&P Assessment and Plan (1) Gram-negative bacteremia: Code(s): R78.81 - Bacteremia Status: Acute Assessment and Plan: * Blood cultures from 08/06 grew E coli, resistant to Unasyn and Augmentin * 08/08 Blood cultures obtained, no growth to date. * Ceftriaxone 1 gram IVPB daily--now on Levaquin (2) Acute UTI: Code(s): N39.0 - Urinary tract infection, site not specified Status: Acute Assessment and Plan: UA 08/06: Urine turbid, 1+ protein, 2+ blood, positive nitrate, 3+ leukocytes, RBC 11-20, WBC >100, 4+ bacteria. * Urine culture grew E coli. * Ceftriaxone 1 gram IVPB daily completed * NS @ 75 ml/hr--stopped * PT/OT. (3) Acute kidney injury superimposed on stage 3a chronic kidney disease: Code(s): N17.9 - Acute kidney failure, unspecified; N18.31 - Chronic kidney disease, stage 3a Status: Acute Assessment and Plan: * 08/08:BUN 26, Creatinine 1.26, and GFR 41. * 08/09: BUN 19, Creatinine 0.92, and GFR 59. * Hold Lisinopril and Meloxicam. Change to losartan * Low dose NSAIDs for a short course for severe pain (4) Pneumonia: Code(s): J18.9 - Pneumonia, unspecified organism Status: Acute Assessment and Plan: * 08/06 Chest X-ray showed: bilateral pneumonia. * Doxycycline 100 mg IVPB q 12, now on levaquin to 08/15 * Incentive spirometer. * Duo neb q 6 PRN. * PT/OT. 08/08/24 TTE ordered 1. Technically difficult study with limited views due to body habitus, poor patient cooperation. 2. Left ventricular chamber dimension is normal. 3. Left ventricular systolic function is normal, estimated at 65-70. 4. There is mildly increased left ventricular wall thickness. 5. There is mild tricuspid valve regurgitation. 6. There is small anterior pericardial effusion. (5) Morbid obesity with BMI of 40.0-44.9, adult: Code(s): E66.01 - Morbid (severe) obesity due to excess calories; Z68.41 - Body mass index [BMI] 40.0-44.9, adult Status: Acute Assessment and Plan: * Changed diet to regular * Encourage activity. * Bag Machine Set Up Operator consult (6) Shoulder pain: Code(s): M25.519 - Pain in unspecified shoulder Status: Acute Assessment and Plan: No falls. Possibly pulled during activity. --improved today with scheduled Toradol 15, change to Naproxen 375mg BID with meals. Short course only, then low dose prn with mild CKD --imaging if does not continue to resolve (7) Hyponatremia: Code(s): E87.1 - Hypo-osmolality and hyponatremia Status: Acute Assessment and Plan: 137>134>128 --Repeat BMP this afternoon with osmo --Urine osmo, na --Liberalize diet (instead of low sodium) (8) Cough: Code(s): R05.9 - Cough, unspecified Status: Acute Assessment and Plan: General - Awake and alert. No acute distress Eyes - PERRLA, EOM intact ENT - No thrush, No erythema Neck - No noticeable or palpable swelling Lymph Nodes - No lymphadenopathy Cardiovascular - RRR no m/r/g, no JVD Lungs: Clear to auscultation, No wheezing, use of accessory muscles, no crackles or wheezes. Skin - Skin warm and dry, no wounds or rashes Abdomen - Normal bowel sounds, abdomen soft and nontender Extremities - No edema, cyanosis or clubbing Musculoskeletal - 5/5 strength, normal range of motion, no swollen or erythematous joints. Neurological ? Alert and oriented x 3, CN 2-12 grossly intact. Psych: Normal mood and affect Time Spent With Patient Time: 49 minutes Subjective Date/time seen: 08/13/24 07:26 Interval history: Sodium 128, fluid restricting Still frequently coughing. Has a sore throat Follow up chest x-ray no acute findings. Rarely coarse/faint wheeze Review of Systems Review of Systems: 12 systems were reviewed with pertinent positives and negatives per HPI. Except as documented in the HPI, all other systems were reviewed and are negative. However review of systems is unreliable due to patient's confusion. All systems reviewed & are unremarkable except as noted in HPI and below Exam Narrative: General - Awake and alert. No acute distress Eyes - PERRLA, EOM intact ENT - No thrush, No erythema Neck - No noticeable or palpable swelling Lymph Nodes - No lymphadenopathy Cardiovascular - RRR no m/r/g, no JVD Lungs: Coarse, No rare wheeze, use of accessory muscles Skin - Skin warm and dry, no wounds or rashes Abdomen - Normal bowel sounds, abdomen soft and nontender, obese Extremities - No edema, cyanosis or clubbing Musculoskeletal - 5/5 strength, normal range of motion, no swollen or erythematous joints. Neurological ? Alert and oriented x 3, CN 2-12 grossly intact. Psych: Normal mood and affect Objective Data Vital Signs Vital Signs: Vital Signs - 24 hr 08/12/24 09:40 08/12/24 14:00 08/12/24 20:05 Temperature 98.5 F 98.1 F Pulse Rate 79 83 Respiratory Rate 16 18 Blood Pressure 102/64 158/80 H Pulse Oximetry 97 96 Oxygen Delivery Room Air 08/13/24 04:25 Temperature 96.4 F L Pulse Rate 71 Respiratory Rate 20 Blood Pressure 143/80 H Pulse Oximetry 95 Oxygen Delivery Intake/Output Intake/Output: Intake & Output 08/10/24 08/11/24 08/12/24 08/13/24 23:59 23:59 23:59 23:59 Intake Total 820 2048 3995 1000 Output Total 1800 1875 2800 Balance -764 631 0415 1000 Meds/Results Medications: Active Medications Generic Name Dose Route Start Last Admin Trade Name Freq PRN Reason Stop Dose Admin Acetaminophen 650 mg 08/08/24 00:22 Acetaminophen 325 Mg Tablet PO Q4H PRN Mild Pain (1-3) or Fever Hydrocodone Bitart/Acetaminophen 1 tab 08/08/24 04:17 08/10/24 21:35 Hydrocodone/Acetaminophen (*Crx) 5-325 Mg Tablet PO 1 tab Q6H PRN Administration pain (scale score 4-10 Albuterol/Ipratropium 3 ml 08/08/24 07:56 Ipratropium 0.5 Mg/Albuterol Sulfate 2.5 Mg Ampul.Neb 3 Ml INHALATION Q6HRT PRN Shortness of breath or wheezing Benzocaine 1 lozenge 08/12/24 01:01 08/12/24 01:22 Benzocaine/Menthol (*Bkc) 18 Ea Lozenge PO 1 lozenge PRN PRN Administration Sore Throat Benzonatate 100 mg 08/08/24 19:16 08/13/24 02:38 Benzonatate 100 Mg Capsule PO 100 mg TID PRN Administration Cough Gabapentin 300 mg 08/08/24 09:00 08/12/24 16:14 Gabapentin 300 Mg Capsule PO 300 mg TID JENNIFER Administration Guaifenesin 600 mg 08/08/24 21:00 08/12/24 22:26 Guaifenesin 12 Hr 600 Mg Tabcr PO 600 mg Q12HR JENNIFER Administration Levofloxacin 750 mg 08/10/24 21:00 08/12/24 22:27 Levofloxacin 750 Mg Tablet PO 08/15/24 21:01 750 mg QHS JENNIFER Administration Losartan Potassium 25 mg 08/12/24 09:00 08/12/24 09:32 Losartan Potassium 25 Mg Tablet PO 25 mg DAILY JENNIFER Administration Naproxen 375 mg 08/12/24 11:30 08/12/24 16:14 Naproxen 375 Mg Tablet PO 375 mg BIDWM JENNIFER Administration Ondansetron HCl 4 mg 08/08/24 00:22 Ondansetron Inj 4 Mg/2 Ml Vial IV PUSH Q4H PRN Nausea Polyethylene Glycol 17 gm 08/08/24 04:18 Polyethylene Glycol 3350 17 Gm Powd.Pack PO DAILY PRN constipation Trazodone HCl 100 mg 08/08/24 21:00 08/12/24 22:26 Trazodone Hcl 50 Mg Tablet PO 100 mg HS JENNIFER Administration Labs Labs: Laboratory Results - last 24 hr 08/12/24 08/12/24 08/12/24 06:32 13:42 13:42 WBC 9.0 RBC 3.58 L Hgb 10.8 L Hct 33.5 L MCV 93.6 MCH 30.2 MCHC 32.2 RDW 11.9 Plt Count 188 MPV 10.2 Immature Gran % (Auto) 0.7 H Neut % (Auto) 62.3 Lymph % (Auto) 24.9 [place] % (Auto) 8.3 Eos % (Auto) 3.2 Baso % (Auto) 0.6 Lymph # (Auto) 2.25 [place] # (Auto) 0.8 H Eos # (Auto) 0.3 Baso # (Auto) 0.1 Abs Immat Gran (auto) 0.06 H Absolute Neuts (auto) 5.6 Absolute Nucleated RBC 0.000 Nucleated RBC % 0.0 Sodium 128 L Potassium 4.0 Chloride 98 Carbon Dioxide 24 Anion Gap 6 BUN 18 H Creatinine 0.94 Estim Creat Clear Calc 51 Estimated GFR 58 L Glucose 128 H Calcium 8.7 Total Bilirubin 0.5 AST 21 ALT 10 Alkaline Phosphatase 68 Total Protein 6.0 L Albumin 3.1 L Urine Color Yellow Urine Appearance Clear Urine pH 6.5 Ur Specific [place] 1.009 Urine Protein Negative Urine Glucose (UA) Negative Urine Ketones Negative Ur Blood (Man) Trace Urine Nitrate Negative Urine Bilirubin Negative Urine Urobilinogen 0.2 Ur Leukocyte Esterase 3+ H Urine RBC 3-5 H Urine WBC 51-100 Ur Squamous Epith Cells Occasional Urine Bacteria None seen Urine Casts 0-2 Ur Random Sodium 101 101 08/12/24 08/13/24 15:59 06:07 WBC 10.6 H RBC 3.67 L Hgb 11.0 L Hct 33.3 L MCV 90.7 MCH 30.0 MCHC 33.0 RDW 12.0 Plt Count 209 MPV 9.9 Immature Gran % (Auto) 0.4 Neut % (Auto) 68.8 Lymph % (Auto) 19.4 [place] % (Auto) 7.6 Eos % (Auto) 3.1 Baso % (Auto) 0.7 Lymph # (Auto) 2.05 [place] # (Auto) 0.8 H Eos # (Auto) 0.3 Baso # (Auto) 0.1 Abs Immat Gran (auto) 0.04 H Absolute Neuts (auto) 7.3 H Absolute Nucleated RBC 0.000 Nucleated RBC % 0.0 Sodium 128 L 128 L Potassium 4.4 3.9 Chloride 95 L 96 L Carbon Dioxide 26 26 Anion Gap 7 6 BUN 16 15 Creatinine 0.96 0.88 Estim Creat Clear Calc 50 54 Estimated GFR 56 L > 60 Glucose 184 H 131 H Calcium 8.6 8.7 Total Bilirubin 0.6 AST 18 ALT 10 Alkaline Phosphatase 72 Total Protein 6.0 L Albumin 3.1 L Urine Color Urine Appearance Urine pH Ur Specific [place] Urine Protein Urine Glucose (UA) Urine Ketones Ur Blood (Man) Urine Nitrate Urine Bilirubin Urine Urobilinogen Ur Leukocyte Esterase Urine RBC Urine WBC Ur Squamous Epith Cells Urine Bacteria Urine Casts Ur Random Sodium Quality VTE Prophylaxis VTE prophylaxis: mechanical ordered (SCDs) Hospitalist MIPS Advance Care Plan I have confirmed that the patient's Advanced Care Plan is present, code status is documented, or surrogate decision maker is listed in patient medical record.: Yes Medication Reconciliation I have utilized all available resources to obtain, update and review the patients current medications (includes all prescriptions, OTC, herbals, cannabis, and nutritional supplements).: Yes
[2024-08-13] MEDS: GABAPENTIN 300 MG CAPSULE PO ×3 (09:03→17:40)
[2024-08-13] MEDS: guaiFENesin 12 HR 600 MG TABCR PO ×2 (09:03→22:11)
[2024-08-13] MEDS: LOSARTAN POTASSIUM 25 MG TABLET PO (09:04)
[2024-08-13] MEDS: NAPROXEN 375 MG TABLET PO ×2 (09:04→17:40)
[2024-08-13 10:19] LABS: Influenza A QL RT-PCR Negative (Negative); Influenza B QL RT-PCR Negative (Negative); RSV RNA, RT-PCR. Negative (Negative); SARS-CoV-2 RNA PCR Negative (Negative)
[2024-08-13 14:00] VITALS: BP 106/40; PULSE 93; RESP 18; TEMP 36.2; O2SAT 95
[2024-08-13 15:23] VITALS: PULSE 78; RESP 16
[2024-08-13] MEDS: IPRATROPIUM 0.5 MG/ALBUTEROL SULFATE 2.5 MG AMPUL.NEB 3 ML INHALATION (15:23)
[2024-08-13 15:32] VITALS: PULSE 78; RESP 16
[2024-08-13] MEDS: HYDROcodone/acetaminophen (*CRX) 5-325 MG TABLET 1 TAB PO (18:00)
[2024-08-13 21:06] VITALS: O2SAT 95
[2024-08-13 21:40] VITALS: BP 137/57; PULSE 78; RESP 20; TEMP 36.6; O2SAT 97
[2024-08-13] MEDS: traZODone HCL 50 MG TABLET 100 MG PO (22:11)
[2024-08-13] MEDS: levoFLOXacin 750 MG TABLET PO (22:11)
[2024-08-14 05:12] VITALS: BP 121/51; PULSE 78; RESP 18; TEMP 36.2; O2SAT 100
[2024-08-14 06:58] LABS: Basophils Absolute Auto 0.1 K/mm3 (0.0-0.1); Basophils Percent Auto 0.7 % (0.2-1.2); Eosinophils Absolute Auto 0.4 K/mm3 (0-0.3); Eosinophils Percent Auto 3.7 % (0-4.4); Hematocrit 32.6 % (37.0-47.0); Hemoglobin 10.6 g/dL (12.0-15.0); Immature Granulocyte Absolute 0.11 K/mm3 (0.00-0.031); Immature Granulocyte Percent A 1.1 % (0-0.5); Lymphocytes Absolute Auto 2.18 K/mm3 (0.9-3.2); Lymphocytes Percent Auto 21.5 % (18.3-44.2); Mean Corpuscular HGB Conc 32.5 g/dl (32-36); Mean Corpuscular Hemoglobin 29.9 pg (26-34); Mean Corpuscular Volume 92.1 fl (80-100); Mean Platelet Volume 9.9 fl (7.4-10.4); Monocytes Absolute Auto 0.9 K/mm3 (0.1-0.6); Monocytes Percent Auto 8.6 % (2.6-8.5); Neutrophils Absolute Auto 6.5 K/mm3 (1.3-6.7); Neutrophils Percent Auto 64.4 % (45.5-73.1); Platelet Count Result 192 k/mm3 (150-375); Red Blood Count 3.54 M/mm3 (4.2-5.4); Red Cell Distribution Width 12.3 % (11.5-14.5); White Blood Count 10.2 K/mm3 (4.5-10.0)
[2024-08-14 07:22] LABS: Alanine Aminotransferase 10 U/L (6-35); Albumin Level 3.1 g/dL (3.5-5.1); Alkaline Phosphatase 67 U/L (38-126); Anion Gap 6 mmol/L (4-12); Aspartate Amino Transferase 19 U/L (14-36); Bilirubin,Total 0.5 mg/dL (0.2-1.3); Blood Urea Nitrogen 20 mg/dL (7-17); Calcium 8.3 mg/dL (8.4-10.2); Carbon Dioxide 27 mmol/L (22-30); Chloride 95 mmol/L (98-107); Estimated CRCL calculation 47 ml/min; Estimated Glomerular Filt Rate 52; Glucose 122 mg/dL (65-110); NT Pro B Type Natriuretic Pept 2270 pg/mL (19.9-100); Potassium 4.1 mmol/L (3.4-5.0); Sodium 128 mmol/L (137-145)
[2024-08-14] MEDS: guaiFENesin 12 HR 600 MG TABCR PO (08:09)
[2024-08-14] MEDS: GABAPENTIN 300 MG CAPSULE PO ×3 (08:09→17:13)
[2024-08-14] MEDS: LOSARTAN POTASSIUM 25 MG TABLET PO (08:09)
[2024-08-14] MEDS: NAPROXEN 375 MG TABLET PO ×2 (08:15→17:13)
--- NOTE | 2024-08-14 08:53 | P.PNIM_ITS ---
Progress Note: A&P Assessment and Plan (1) Gram-negative bacteremia: Code(s): R78.81 - Bacteremia Status: Acute Assessment and Plan: * Blood cultures from 08/06 grew E coli, resistant to Unasyn and Augmentin * 08/08 Blood cultures obtained, no growth to date. * Ceftriaxone 1 gram IVPB daily--now on Levaquin (2) Acute UTI: Code(s): N39.0 - Urinary tract infection, site not specified Status: Acute Assessment and Plan: UA 08/06: Urine turbid, 1+ protein, 2+ blood, positive nitrate, 3+ leukocytes, RBC 11-20, WBC >100, 4+ bacteria. * Urine culture grew E coli. * Ceftriaxone 1 gram IVPB daily completed * NS @ 75 ml/hr--stopped * PT/OT. (3) Acute kidney injury superimposed on stage 3a chronic kidney disease: Code(s): N17.9 - Acute kidney failure, unspecified; N18.31 - Chronic kidney disease, stage 3a Status: Acute Assessment and Plan: * 08/08:BUN 26, Creatinine 1.26, and GFR 41. * 08/09: BUN 19, Creatinine 0.92, and GFR 59. * Hold Lisinopril and Meloxicam. Change to losartan * Low dose NSAIDs for a short course for severe pain (4) Pneumonia: Code(s): J18.9 - Pneumonia, unspecified organism Status: Acute Assessment and Plan: * 08/06 Chest X-ray showed: bilateral pneumonia. * Doxycycline 100 mg IVPB q 12, now on levaquin to 08/15 * Incentive spirometer. * Duo neb q 6 PRN. * PT/OT. 08/08/24 TTE ordered 1. Technically difficult study with limited views due to body habitus, poor patient cooperation. 2. Left ventricular chamber dimension is normal. 3. Left ventricular systolic function is normal, estimated at 65-70. 4. There is mildly increased left ventricular wall thickness. 5. There is mild tricuspid valve regurgitation. 6. There is small anterior pericardial effusion. (5) Morbid obesity with BMI of 40.0-44.9, adult: Code(s): E66.01 - Morbid (severe) obesity due to excess calories; Z68.41 - Body mass index [BMI] 40.0-44.9, adult Status: Acute Assessment and Plan: * Changed diet to regular * Encourage activity. * District Manager [employer] consult (6) Shoulder pain: Code(s): M25.519 - Pain in unspecified shoulder Status: Acute Assessment and Plan: No falls. Possibly pulled during activity. --improved today with scheduled Toradol 15, change to Naproxen 375mg BID with meals. Short course only, then low dose prn with mild CKD --imaging if does not continue to resolve (7) Hyponatremia: Code(s): E87.1 - Hypo-osmolality and hyponatremia Status: Acute Assessment and Plan: 137>134>128 --Repeat BMP this afternoon with osmo --Urine osmo, na --Liberalize diet (instead of low sodium) (8) Cough: Code(s): R05.9 - Cough, unspecified Status: Acute Assessment and Plan: General - Awake and alert. No acute distress Eyes - PERRLA, EOM intact ENT - No thrush, No erythema Neck - No noticeable or palpable swelling Lymph Nodes - No lymphadenopathy Cardiovascular - RRR no m/r/g, no JVD Lungs: Clear to auscultation, No wheezing, use of accessory muscles, no crackles or wheezes. Skin - Skin warm and dry, no wounds or rashes Abdomen - Normal bowel sounds, abdomen soft and nontender Extremities - No edema, cyanosis or clubbing Musculoskeletal - 5/5 strength, normal range of motion, no swollen or erythematous joints. Neurological ? Alert and oriented x 3, CN 2-12 grossly intact. Psych: Normal mood and affect Subjective Date/time seen: 08/14/24 08:53 Interval history: Sodium 128, fluid restricting Still frequently coughing. Has a sore throat Follow up chest x-ray no acute findings. Rarely coarse/faint wheeze Review of Systems Review of Systems: 12 systems were reviewed with pertinent positives and negatives per HPI. Except as documented in the HPI, all other systems were reviewed and are negative. However review of systems is unreliable due to patient's confusion. All systems reviewed & are unremarkable except as noted in HPI and below Exam Narrative: General - Awake and alert. No acute distress Eyes - PERRLA, EOM intact ENT - No thrush, No erythema Neck - No noticeable or palpable swelling Lymph Nodes - No lymphadenopathy Cardiovascular - RRR no m/r/g, no JVD Lungs: Coarse, No rare wheeze, use of accessory muscles Skin - Skin warm and dry, no wounds or rashes Abdomen - Normal bowel sounds, abdomen soft and nontender, obese Extremities - No edema, cyanosis or clubbing Musculoskeletal - 5/5 strength, normal range of motion, no swollen or erythematous joints. Neurological ? Alert and oriented x 3, CN 2-12 grossly intact. Psych: Normal mood and affect Const: General: comfortable and no acute distress Other: Morbidly obese, no acute distress, appears stated age HENMT: Other: Mucous membranes are tacky, no oral pharyngeal erythema, good dentition Eyes: Other: Pupils are equal and reactive, no scleral icterus, no conjunctival pallor Neck: Other: Large neck circumference, no JVD, no lymphadenopathy Resp: Effort & Inspection: normal respiratory effort Auscultation: clear to auscultation bilaterally Other: Slightly diminished. Cardio: Rate: regular rate Rhythm: regular rhythm Other: 3/6 systolic murmur, 2+ bilateral radial pedal pulses, no JVD GI: Auscultation: normal bowel sounds Other: Soft, mild suprapubic tenderness, normoactive bowel sounds : Other: Suprapubic tenderness, incontinent of urine Skin: Other: Normal temperature to touch, non jaundice, mild pallor Neuro: Speech: normal speech Other: Alert oriented to person, place and year, confused as to the month in the name of the current president, she is conversational and follows all commands, no localizing neurologic deficits noted during the course of conversation Extrem: General: no pedal edema Other: No clubbing, cyanosis or edema, 5/5 professor of psychiatry strength bilateral Psych: Mental Status: mental status grossly normal Affect: normal affect Other: Pleasantly confused, cooperative Objective Data Vital Signs Vital Signs: Vital Signs - 24 hr 08/13/24 14:00 08/13/24 15:23 08/13/24 15:32 Temperature 97.2 F L Pulse Rate 93 78 78 Respiratory Rate 18 16 16 Blood Pressure 106/40 L Pulse Oximetry 95 Oxygen Delivery 08/13/24 21:06 08/13/24 21:40 08/14/24 05:12 Temperature 97.9 F 97.2 F L Pulse Rate 78 78 Respiratory Rate 20 18 Blood Pressure 137/57 L 121/51 L Pulse Oximetry 95 97 100 Oxygen Delivery Room Air Intake/Output Intake/Output: Intake & Output 08/11/24 08/12/24 08/13/24 08/14/24 23:59 23:59 23:59 23:59 Intake Total 2370 9718 1591 550 Output Total 3975 2800 603 Balance 173 1195 988 550 Meds/Results Medications: Active Medications Generic Name Dose Route Start Last Admin Trade Name Freq PRN Reason Stop Dose Admin Acetaminophen 650 mg 08/08/24 00:22 Acetaminophen 325 Mg Tablet PO Q4H PRN Mild Pain (1-3) or Fever Hydrocodone Bitart/Acetaminophen 1 tab 08/08/24 04:17 08/13/24 18:00 Hydrocodone/Acetaminophen (*Crx) 5-325 Mg Tablet PO 1 tab Q6H PRN Administration pain (scale score 4-10 Albuterol/Ipratropium 3 ml 08/08/24 07:56 Ipratropium 0.5 Mg/Albuterol Sulfate 2.5 Mg Ampul.Neb 3 Ml INHALATION Q6HRT PRN Shortness of breath or wheezing Albuterol/Ipratropium 3 ml 08/13/24 15:07 Ipratropium 0.5 Mg/Albuterol Sulfate 2.5 Mg Ampul.Neb 3 Ml INHALATION Q6HRT PRN Shortness Of Breath Or Wheezing Benzocaine 1 lozenge 08/12/24 01:01 08/12/24 01:22 Benzocaine/Menthol (*Bkc) 18 Ea Lozenge PO 1 lozenge PRN PRN Administration Sore Throat Benzonatate 100 mg 08/08/24 19:16 08/13/24 12:20 Benzonatate 100 Mg Capsule PO 100 mg TID PRN Administration Cough Gabapentin 300 mg 08/08/24 09:00 08/14/24 08:09 Gabapentin 300 Mg Capsule PO 300 mg TID JENNIFER Administration Guaifenesin 600 mg 08/08/24 21:00 08/14/24 08:09 Guaifenesin 12 Hr 600 Mg Tabcr PO 600 mg Q12HR JENNIFER Administration Levofloxacin 750 mg 08/10/24 21:00 08/13/24 22:11 Levofloxacin 750 Mg Tablet PO 08/15/24 21:01 750 mg QHS JENNIFER Administration Losartan Potassium 25 mg 08/12/24 09:00 08/14/24 08:09 Losartan Potassium 25 Mg Tablet PO 25 mg DAILY JENNIFER Administration Naproxen 375 mg 08/12/24 11:30 08/14/24 08:15 Naproxen 375 Mg Tablet PO 375 mg BIDWM JENNIFER Administration Ondansetron HCl 4 mg 08/08/24 00:22 Ondansetron Inj 4 Mg/2 Ml Vial IV PUSH Q4H PRN Nausea Phenol 1 spray 08/13/24 17:29 Phenol/Sod Pheno Wyocena Baker (*Bkc) MUCOUS MEM PRN PRN Sore Throat Polyethylene Glycol 17 gm 08/08/24 04:18 Polyethylene Glycol 3350 17 Gm Powd.Pack PO DAILY PRN constipation Trazodone HCl 100 mg 08/08/24 21:00 08/13/24 22:11 Trazodone Hcl 50 Mg Tablet PO 100 mg HS JENNIFER Administration Radiology Results: ITS Impressions Chest X-Ray 08/13/24 13:03 IMPRESSION: 1. No acute cardiopulmonary disease. Labs Labs: Laboratory Results - last 24 hr 08/13/24 08/14/24 09:03 06:08 WBC 10.2 H RBC 3.54 L Hgb 10.6 L Hct 32.6 L MCV 92.1 MCH 29.9 MCHC 32.5 RDW 12.3 Plt Count 192 MPV 9.9 Immature Gran % (Auto) 1.1 H Neut % (Auto) 64.4 Lymph % (Auto) 21.5 [place] % (Auto) 8.6 H Eos % (Auto) 3.7 Baso % (Auto) 0.7 Lymph # (Auto) 2.18 [place] # (Auto) 0.9 H Eos # (Auto) 0.4 H Baso # (Auto) 0.1 Abs Immat Gran (auto) 0.11 H Absolute Neuts (auto) 6.5 Absolute Nucleated RBC 0.000 Nucleated RBC % 0.0 Sodium 128 L Potassium 4.1 Chloride 95 L Carbon Dioxide 27 Anion Gap 6 BUN 20 H Creatinine 1.02 H Estim Creat Clear Calc 47 Estimated GFR 52 L Glucose 122 H Calcium 8.3 L Total Bilirubin 0.5 AST 19 ALT 10 Alkaline Phosphatase 67 NT-Pro-B Natriuret Pep 2270 H Total Protein 6.0 L Albumin 3.1 L Influenza A (RT-PCR) Negative Influenza B (RT-PCR) Negative RSV (RT-PCR) Negative SARS-CoV-2 RNA (RT-PCR) Negative Quality VTE Prophylaxis VTE prophylaxis: mechanical ordered (SCDs)
--- NOTE | 2024-08-14 14:28 | P.DS_ITS ---
DS: Admitting Diagnosis Discharge Date 08/14/2024 Admitting Diagnosis Gram negative Bacteremia DS: Discharge Diagnosis Discharge Diagnosis (1) Acute kidney injury superimposed on stage 3a chronic kidney disease: Code(s): N17.9 - Acute kidney failure, unspecified; N18.31 - Chronic kidney disease, stage 3a Status: Acute (2) Bacteremia: Code(s): R78.81 - Bacteremia Status: Acute (3) Acute UTI: Code(s): N39.0 - Urinary tract infection, site not specified Status: Acute (4) Morbid obesity with BMI of 40.0-44.9, adult: Code(s): E66.01 - Morbid (severe) obesity due to excess calories; Z68.41 - Body mass index [BMI] 40.0-44.9, adult Status: Acute (5) Hyponatremia: Code(s): E87.1 - Hypo-osmolality and hyponatremia Status: Acute (6) Shoulder pain: Code(s): M25.519 - Pain in unspecified shoulder Status: Acute (7) Pneumonia: Code(s): J18.9 - Pneumonia, unspecified organism Status: Acute (8) Weakness: Code(s): R53.1 - Weakness Status: Acute (9) Cough: Code(s): R05.9 - Cough, unspecified Status: Acute (10) Reactive airway disease: Code(s): J45.909 - Unspecified asthma, uncomplicated Status: Acute DS: Summary Hospital Course Reason for hospitalization: Copied from [facility] 08/08: 78-year-old female with a past medical history of essential tremor, chronic kidney disease, diet-controlled diabetes, essential hypertension, hyperlipidemia and distant history of lymphoma who presented to the ER her assisted facility via private vehicle due to positive blood cultures. The patient had b een evaluated in the ER late on the due to chief complaint of chills and increased tremor from baseline. She had evidently reported some shortness of breath on the but did not report shortness of breath at the time of my evaluation. She read denied having any cough or congestion. She is on room air at the time my evaluation. She denies any urinary symptoms but wears depends at all times. It was suggested that she be admitted for further treatment while awaiting cultures but the patient opted to go home. Her UA in the ER yesterday was also suggestive of UTI. She was discharged home on cefdinir and doxycycline after see receiving 1 dose around midnight prior to being discharged home. The patient was supposed to have started her antibiotics on the morning of the but she did not do so. Despite not starting her antibiotics her white count did go down to 9.1 today but unfortunately her blood cultures came back positive for Gram-negative bacilli in the aerobic bottle only. Blood cultures came back positive and 21 hours from being drawn. Patient denied having any fevers but has been having chills. She denies any nausea or vomiting. The patient is alert oriented to person place and year. She is confused as to the month she thought that the month was February and she thought that the president was Ezequiel Lombardi. She does admit to having some increased confusion over the last several weeks. Imaging on the demonstrated possible pneumonia on x-ray. Patient was also complaining of some lower abdominal pain on presentation the ER yesterday. At the time of my evaluation she did have some tenderness to palpation of her suprapubic region. Hospital Course: Gram-negative bacteremia: * Blood cultures from 08/06 grew E coli, resistant to Unasyn and Augmentin * 08/08 Blood cultures no growth (Finalized) * Started on Ceftriaxone 1 gram IVPB daily and continued on Levaquin to 08/15 Acute UTI: UA 08/06: Urine turbid, 1+ protein, 2+ blood, positive nitrate, 3+ leukocytes, RBC 11-20, WBC >100, 4+ bacteria. * Urine culture grew E coli. * Ceftriaxone 1 gram IVPB daily and continued levaquin above. * Recieved fluids during admission * PT/OT. (3) Acute kidney injury superimposed on stage 3a chronic kidney disease: Acute kidney failure Chronic kidney disease, stage 3a * 08/08:BUN 26, Creatinine 1.26, and GFR 41. * 08/14: BUN 20, Creatinine 1.02 and GFR 47 * Initially held Lisinopril and Meloxicam. Restarted an NSAID for severe shoulder pain. Resumed lisinopril for discharge Pneumonia, unspecified organism * 08/06 Chest X-ray showed: bilateral pneumonia. * Doxycycline 100 mg IVPB q 12, continued levaquin to 08/15 * Incentive spirometer. * Duo neb q 6 PRN. * PT/OT. 08/08/24 TTE ordered 1. Technically difficult study with limited views due to body habitus, poor patient cooperation. 2. Left ventricular chamber dimension is normal. 3. Left ventricular systolic function is normal, estimated at 65-70. 4. There is mildly increased left ventricular wall thickness. 5. There is mild tricuspid valve regurgitation. 6. There is small anterior pericardial effusion. Reactive Airway Cough [place] 1 duoneb was helpful, cough improved and rare wheeze resolved. Received 2 duonebs during admission Albuterol prn for discharge Morbid obesity with BMI of 40.0-44.9, adult: * Encourage activity, weight loss. * [facility] Hand consulted Shoulder pain: No falls. Possibly pulled during activity. Patient improved with toradol, changed to naproxen 375 BID and pain continued to improve. No concern for fracture so did not image. Resumed meloxicam prn for discharge --Can consider images if worsens or not resolving outpatient Hyponatremia: 137>134>128-128-128 --Remained stable with a fluid restriction 1250ml --Urine osmo, serum osmo pending --Liberalized diet (instead of low sodium), 1250-1500ml. Increase as able --Follow up BMP in 1 week. Status at Discharge Cognitive/behavioral status at discharge: A&Ox4 Time Spent with Patient Time attestation: Total time spent providing and/or coordinating discharge services:43 minutes Exam Narrative: General - Awake and alert. No acute distress Eyes - PERRLA, EOM intact ENT - No thrush, No erythema Neck - No noticeable or palpable swelling Lymph Nodes - No lymphadenopathy Cardiovascular - RRR no m/r/g, no JVD Lungs: Clear to auscultation, No wheezing, use of accessory muscles, no crackles or wheezes. Skin - Skin warm and dry, no wounds or rashes Abdomen - Normal bowel sounds, abdomen soft and nontender Extremities - No edema, cyanosis or clubbing Musculoskeletal - 5/5 strength, normal range of motion, no swollen or erythematous joints. Neurological ? Alert and oriented x 3, CN 2-12 grossly intact. Psych: Normal mood and affect DS: Data Data Completed and Pending Labs on day of discharge: Labs from last 24 hours 08/14/24 06:08 WBC 10.2 H RBC 3.54 L Hgb 10.6 L Hct 32.6 L MCV 92.1 MCH 29.9 MCHC 32.5 RDW 12.3 Plt Count 192 MPV 9.9 Immature Gran % (Auto) 1.1 H Neut % (Auto) 64.4 Lymph % (Auto) 21.5 [place] % (Auto) 8.6 H Eos % (Auto) 3.7 Baso % (Auto) 0.7 Lymph # (Auto) 2.18 [place] # (Auto) 0.9 H Eos # (Auto) 0.4 H Baso # (Auto) 0.1 Abs Immat Gran (auto) 0.11 H Absolute Neuts (auto) 6.5 Absolute Nucleated RBC 0.000 Nucleated RBC % 0.0 Sodium 128 L Potassium 4.1 Chloride 95 L Carbon Dioxide 27 Anion Gap 6 BUN 20 H Creatinine 1.02 H Estim Creat Clear Calc 47 Estimated GFR 52 L Glucose 122 H Calcium 8.3 L Total Bilirubin 0.5 AST 19 ALT 10 Alkaline Phosphatase 67 NT-Pro-B Natriuret Pep 2270 H Total Protein 6.0 L Albumin 3.1 L Discharge Plan Discharge Attending physician on discharge: Radha Nassar Discharging Clinician: Radha Nassar Anticipated Discharge Date/Time: 08/14/24 14:23 Patient Disposition: [place] Nursing Home/Asst Living Activity: no shower Diet: regular Discharge Instructions: You were treated for pneumonia. You have 2 more doses of Levaquin and should take one tablet today and one tomorrow. Your sodium was low and you should continue to restrict fluids to 1250-1500ml per day. Follow up with your PCP in 1-2 weeks. You should have follow up labs in about a week Patient Instructions: Antibiotic Form Patient Language: Faroese Stand Alone Forms: General Discharge Information Follow-up/Referrals: Cristofer,MD Gorge [Primary Care Provider] - 2 Weeks Discharge Medications: New levofloxacin 750 mg tablet 750 mg PO DAILY Qty: 2 0RF albuterol sulfate [Ventolin HFA] 90 mcg/actuation HFA aerosol inhaler 1 inh inhalation QID PRN (Reason: shortness of breath or wheezing) Qty: 6.7 0RF Continued gabapentin 300 mg capsule 300 mg PO TID atorvastatin [Lipitor] 10 mg tablet 10 mg PO DAILY lisinopril 10 mg tablet 10 mg PO DAILY meloxicam 15 mg tablet 15 mg PO DAILY trazodone 100 mg tablet 100 mg PO HS polyethylene glycol 3350 [Miralax] 17 gram/dose powder 17 g PO DAILY PRN (Reason: constipation) hydrocodone-acetaminophen 5-325 mg tablet 1 tablet PO Q6H PRN (Reason: pain (scale score 4-6)) Qty: 20 0RF Discontinued cefdinir 300 mg capsule 300 mg PO Q12H 10 Days Qty: 20 0RF Other Ambulatory Orders: OT Outpatient Eval and Treat (ONCE) Timeframe: 20240821 Location: Determined by Patient Ordered By: Radha Nassar PT Outpatient Eval and Treat (ONCE) Timeframe: 20240821 Location: Determined by Patient Ordered By: Radha Nassar Basic Metabolic Panel (Routine) Timeframe: 1 Week Location: Determined by Patient Ordered By: Radha Nassar Complete Blood Count with Diff (Routine) Timeframe: 1 Week Location: Determined by Patient Ordered By: Radha Nassar Date of admission: 08/08/24 09:14 Primary Care Provider: CristoferGorge Admitting Provider: Giselle Diego Attending physician on admission: Radha Nassar Condition: Stable Quality VTE Prophylaxis VTE prophylaxis: pharmacologic ordered Hospitalist MIPS Heart Failure (Exclusion) Patient has history of Heart Transplant or Left Ventricular Assistive Device?: No IF YES, STOP HERE Heart Failure (Qualifier) Patient has current or prior documentation of LVEF less than or equal to 40%, or mod/servere depressed LVSF?: No IF NO, STOP HERE
[2024-08-14] MEDS: ALBUTEROL SULFATE (*SP) AEROSOL 1 PUFF 2 PUFF INHALATION (15:09)
[2024-08-15 12:04] LABS: Osmolality, Urine. 312 mOsm/kg (50-1200)
== END 2024-08-14 20:00 | DRG 689 ==
LOC: ANHED 08-08 00:30 → ANH3MEDSUR 08-08 00:44
PROVIDERS: Nurse Practitioner Family; Admitting Provider Internal Medicine; Emergency Provider Emergency Medicine; PCP Internal Medicine; Visit Provider Nurse Practitioner Acute Care
DX: N39.0 Urinary tract infection, site not specified (principal); J18.9 Pneumonia, unspecified organism; R78.81 Bacteremia; N17.9 Acute kidney failure, unspecified; E87.1 Hypo-osmolality and hyponatremia; Z68.42 Body mass index [BMI] 45.0-49.9, adult; B96.20 Unspecified Escherichia coli [E. coli] as the cause of diseases classified elsewhere; I12.9 Hypertensive chronic kidney disease with stage 1 through stage 4 chronic kidney disease, or unspecified chronic kidney disease; N18.31 Chronic kidney disease, stage 3a; E11.22 Type 2 diabetes mellitus with diabetic chronic kidney disease; E78.5 Hyperlipidemia, unspecified; E66.01 Morbid (severe) obesity due to excess calories; M25.519 Pain in unspecified shoulder; Z20.822 Contact with and (suspected) exposure to COVID-19; Z96.641 Presence of right artificial hip joint; Z96.653 Presence of artificial knee joint, bilateral; Z96.612 Presence of left artificial shoulder joint; Z11.52 Encounter for screening for COVID-19; Z85.72 Personal history of non-Hodgkin lymphomas; Z86.73 Personal history of transient ischemic attack (TIA), and cerebral infarction without residual deficits
CPT/HCPCS: 36415; 71045; 80048; 80053; 81001; 82607; 82728; 83540; 83550; 83605; 83735; 83880; 83930; 83935; 84145; 84300; 85025; 87040; 87637; 93306; 94640; 96365; 96367; 96375; 97110; 97161; 97165; 97530; 99285; A9270; G0378; J0696; J1885; J7030